=== PATIENT | female | born 1985 | race Caucasian/White ===

== ENCOUNTER 2018-04-19 18:23 | Emergency (ER) | payer MEDICAID, SELFPAY ==
[2018-04-19 18:36] VITALS: BP 117/81; PULSE 98; RESP 13; TEMP 36.8; O2SAT 98
--- NOTE | 2018-04-19 19:24 | DI.RPTCT_ITS ---
SYMPTOM/DIAGNOSIS: HEADACHES, CHANGE IN SPEECH PATTERN NONCONTRAST HEAD CT: No intracranial hemorrhage, mass or infarct is seen. There is no evidence of skull fracture. The visualized portions of the orbits and sinuses are unremarkable. IMPRESSION: Negative head CT
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
[2018-04-19] MEDS: Normal Saline 1,000 ML 1000 ML IV (19:43)
[2018-04-19] MEDS: Ondansetron O.D.T. 4 MG TABEF PO (19:43)
[2018-04-19 19:47] LABS: Abs Immature Grans 0.02 k/cumm (0.0-0.09); Absolute Basophil Count 0.02 k/cumm (0.0-0.2); Absolute Eosinophil Count 0.11 k/cumm (0.0-0.7); Absolute Lymphocyte Count 4.01 k/cumm (1.2-3.4); Absolute Monocyte Count 0.68 k/cumm (0.11-0.7); Absolute Neutrophil Count 5.52 k/cumm (1.2-6.7); Basophils % 0.2; Eosinophils % 1.1; HCT 38.5 % (36.0-46.0); HGB 13.2 g/dL (12.0-15.5); Immature Grans % 0.2; Lymphocytes % 38.7; Mean Corp. HGB Concentration 34.3 g/dL (32.0-36.0); Mean Corpuscular Volume 90.4 fL (80-95); Mean Platelet Volume 9.4 fL (8.0-11.0); Monocytes % 6.6; Neutrophils % 53.2; Platelet Count 294 x1000/uL (130-400); RBC 4.26 m/cumm (4.00-5.20); RBC Distribution Width 12.2 % (11.7-14.6); White Blood Cell Count 10.36 k/cumm (4.4-10.8)
[2018-04-19 19:53] LABS: Bilirubin Negative (Negative); Blood Negative (Negative); Clarity Sl Cloudy; Glucose Negative (Negative); Ketones Negative (Negative); Leukocyte Esterase Negative (Negative); Nitrite Negative (Negative); Specific Gravity 1.015 (1.005-1.025); Urobilinogen 0.2 EU/dL (Up TO 0.2)
[2018-04-19 19:58] LABS: ALT 25 U/L (12-78); AST 19 U/L (15-37); Albumin 3.9 g/dL (3.4-5.0); Alkaline Phosphatase 62 U/L (46-116); Anion Gap 6.2 mmol/L (3-11); BUN 10 mg/dL (7-18); Bilirubin, Total 0.2 mg/dL (0.2-1.0); CO2 28.8 mmol/L (21.0-32.0); CREATININE 0.72 mg/dL (0.55-1.02); Calcium 8.9 mg/dL (8.5-10.1); Chloride 102 mmol/L (98-107); Glucose 91 mg/dL (70-100); Potassium 3.5 mmol/L (3.5-5.1); Sodium 137 mmol/L (136-145); Total Protein 7.9 g/dL (6.4-8.2)
[2018-04-19 20:05] LABS: TSH (W/Ref FT4) 2.96 uIU/mL (0.358-3.74)
--- NOTE | 2018-04-19 20:10 | DI.VRAD_ITS ---
EXAM: CT Head Without Intravenous Contrast CLINICAL HISTORY: 32 years old, female; Pain and signs and symptoms; Speech disturbance; Unspecified; Headache; Headache not specified; Patient HX: Headaches, change in speech patterns TECHNIQUE: Axial computed tomography images of the head/brain without intravenous contrast. Coronal and sagittal reformatted images were created and reviewed. COMPARISON: No relevant prior studies available. FINDINGS: Brain: No evidence of acute intracranial bleed. No mass lesion or mass effect. Ortega/white matter differentiation is unremarkable. Cerebellum is unremarkable. Cisterns are unremarkable. Brainstem is unremarkable. No suprasellar mass. Ventricles: Unremarkable. No ventriculomegaly. Bones/joints: Unremarkable. No acute fracture. Soft tissues: Unremarkable. Sinuses: Unremarkable as visualized. No acute sinusitis. Mastoid air cells: Unremarkable as visualized. No mastoid effusion. IMPRESSION: No evidence of pathology. Dictated and Authenticated by: Oleg Ray MD. Ordering:EDWIGE KING MD
[2018-04-19 20:25] VITALS: BP 117/74; BP 120/77; BP 133/77; PULSE 77; PULSE 83; PULSE 85
[2018-04-19 20:25] LABS: Lipase 173 U/L (73-393)
[2018-04-19] MEDS: Promethazine 25 MG TAB 75 MG PO (20:49)
[2018-04-19 20:52] VITALS: TEMP 37.1
== END 2018-04-19 20:58 | disposition home or self-care (01) ==
PROVIDERS: Physician Assistant; Emergency Provider Emergency Medicine; PCP Family Medicine
DX: K64.9 Unspecified hemorrhoids (principal); R76.0 Raised antibody titer; R11.0 Nausea; R10.13 Epigastric pain; R51 Headache; R40.2412 Glasgow coma scale score 13-15, at arrival to emergency department
CPT/HCPCS: 36415; 80053; 81025; 83690; 96360; 99284; 70450; 81003; 84443; 85025

== ENCOUNTER 2018-04-27 08:30 | Outpatient (RCR) | payer MEDICAID, SELFPAY ==
--- NOTE | 2018-04-09 09:30 | PTTR_ITS ---
DATE: 04/09/18 SUBJECTIVE: I am pretty much doing the same in terms of the back. The knee is a little better today. OBJECTIVE: Manual therapy: ([id number]): Patient was briefly stretch through the hip flexor both 1 and 2 joint from the prone position and light PA glides through the thoracic and upper lumbar spine performed as well. Therapeutic procedures ([id number]). * X HEP review: Technique review and corrective modification where appropriate. * X See flow sheet: Patient tolerated her strengthening program well. * X Provided skilled instruction in proper exercise performance: [] * X Provided skilled manual cues to facilitate proper muscle recruitment and/ or movement pattern: [] * X Other: Patient continuing with her intrinsic core stabilization program with progressions in movement pattern as tolerable. Direct treatment time: 30 minutes of direct patient care.
--- NOTE | 2018-04-13 10:13 | NT_ITS ---
NON TREATMENT NOTE; 04/13/18 Patient called in to cancel today's appointment
--- NOTE | 2018-04-16 11:28 | PTTR_ITS ---
DATE: 04/16/18 SUBJECTIVE: I am doing okay for the most part, but I am hoping I get some answers soon. OBJECTIVE: Manual therapy: ([id number]): Patient was placed in supine and mobilized with long axis traction through the bilateral lower extremities for decompression. She was then guided through light hamstrings and piriformis stretching via active isolated stretching technique. Patient was mobilized through the hip with light traction and guided through deep hip flexion, internal and external rotation. She was placed in prone and mobilized with PA glides through the thoracic and lumbar spine with grade III strength for actual vertebral motion. She was guided through hip flexor stretching with hip extension coordinated with knee flexion. Patient then taped with McConnel taping technique for medial glide over the patella bilaterally. Direct treatment time: 30 minutes of direct patient care.
--- NOTE | 2018-04-23 08:40 | NT_ITS ---
NON TREATMENT NOTE: 04/23/18 Patient called in to cancel today's appointment because of something wrong with her tooth
--- NOTE | 2018-04-27 11:52 | PTTR_ITS ---
DATE: 04/27/18 SUBJECTIVE: Pt states that she is doing terrible today. 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 OBJECTIVE: Manual therapy: ([id number]). Pt placed in the supine position receiving gentle traction to the (B) LE and she is then mobilized with gentle hamstring stretching with active isolated stretching technique. Gently mobilized through the hips, stretched to the piriformis as well with light traction technique to facilitate end range motion. She is then placed in prone receiving gentle stretch to the rectus femoris via hip extension coordinated with knee flexion, light PA glides established through the mid to lower thoracic and lumbar spine with a grade 2 distribution of strength with mechanoreceptor stimulation. Pt then taped through the knees with McConnel taping to support medial glide of the patella. Direct treatment time: 30 minutes Total treatment time: 30 minutes
== END 2018-04-30 23:59 | disposition home or self-care (01) ==
LOC: PT 08:30
PROVIDERS: PCP Family Medicine; Referring Provider Family Medicine; Visit Provider Family Medicine
DX: M54.5 Low back pain (principal); M62.81 Muscle weakness (generalized)
CPT/HCPCS: 97110; 97140

== ENCOUNTER 2018-06-06 13:37 | Emergency (ER) | payer MEDICAID, SELFPAY ==
[2018-06-06 13:40] VITALS: BP 123/65; PULSE 105; RESP 24; TEMP 36.3; O2SAT 98
--- NOTE | 2018-06-06 13:49 | W.ED.GENAD ---
Discharge Plan Disposition Patient Disposition: HOME Condition: Fair Discharge Details Chief Complaint: Urinary Clinical Impression: Pyelonephritis Primary Care Provider: Norma Lowe ED Provider: Karine Peña Home Meds and New Rx's Prescriptions: New cephalexin [Keflex] 500 mg capsule 500 mg PO QID Qty: 40 RF: 0 No Action epinephrine 0.3 MG/0.3 ML auto-injector 0.3 mg IM PRN PRN (Reason: Anaphylaxis) RF: 0 levonorgestrel [Mirena] 1 EACH intrauterine device 1 ea Intrauterine ONCE Qty: 1 RF: 0 Lactobacillus acidophilus [Probiotic] 1 EACH capsule 3 cap PO DAILY RF: 0 Ibuprofen [Ibuprofen Ib] 200 MG Tablet 600 mg PO PRNRF: 0 promethazine 25 MG tablet 25 mg PO Q6H PRN (Reason: Nausea) Qty: 12 RF: 0 Discharge Instructions Instructions: Urinary Tract Infection in Women (ED) Additional Instructions: Encourage hydration. Take antibiotics as prescribed, even if symptoms improve please take the entire course. Please follow up with primary care this week for reevaluation. If you develop fevers/chills, change in urination, vomiting or other new/worsening symptoms please seek care urgently. Referrals: Norma Lowe [Primary Care Provider] - Discharge Data Discharge Date/Time-TO BE ENTERED AT DEPARTURE: 06/06/18 15:54 Medical Decision Making Patient presents today with chief complaint of urinary tract infection. Patient reports that she had multiple urinary tract infections in the past. Is been several months since her last. No recent antibiotic treatment. States for the past 3 days she is noted dysuria, increased frequency and urgency. States that when she is going she is going very small amounts. States she has been having some low central discomfort over the area of the bladder particularly around the times of urination. Has not noted any fevers or chills. On exam, no abdominal tenderness is elicited. She does have right-sided CVA tenderness which she states began over the past 24 hours. States that she has been afebrile at home, is currently afebrile. She is noted to be tachycardic at 105. Patient does appear slightly dry on exam. Patient will receive IV hydration, will obtain urinalysis as well as laboratory evaluation. Patient was also endorsing some right leg weakness. Unable to appreciate this weakness on exam. Strength seems equal bilaterally. She is ambulating well with no signs of antalgic gait, foot drop or weakness. Reflexes are equal bilaterally as is sensation. She does not endorse any midline back tenderness. States that this has not been more of a chronic issue and that she believes is associated with her rheumatologic issues she is currently being worked up for. I am unclear at this point where to go with this information as her exam is so reassuring. She does have upcoming appointments for further evaluation of her current rheumatologic complaints. Advised to discuss this further at that time. However, we did discuss new and worsening symptoms and when to seek care urgently for this lower extremity change insensation complaint. Labs significant for leukocytosis with WBC of 12.5. Potassium was minimally low at 3.3. Urinalysis is poor specimen as there is a color interference. Patient has a positive WBC count of 20-50 per high-power field. Many bacteria as well as many epithelial cells. Labs otherwise unremarkable. Discussed these findings with the patient. Based on her history, physical exam and an elevated WBC, and concern for possible pyelonephritis. Patient will be treated with antibiotics. Encourage hydration. I have asked the patient to give another urine specimen in hopes that this is better for culture. Patient received hydration here. Is tolerating p.o. Will begin on antibiotics. I did discuss the antibiotic options with the patient. She does have an allergy to sulfa and will be placed on Keflex. Advised close follow-up with primary care. She was given strict return precautions. All of her questions and concerns were addressed and she is in agreement with this plan HPI General Mode of arrival: ambulatory. Date/Time Provider Initiated Documentation: 06/06/18 13:46. Limitations to Documentation: no limitations. Information obtained by: patient. History of Present Illness 33 year old F presents to the emergency department with the chief complaint of UTI, described as moderate, with intensity rated at 7. Quality is described as burning (with urination), Patient flank (endorsing right flank pain). Patient started experiencing this hour(s) (3) and it has been constant. No relieving factors improve symptom(s), No exacerbating factors reported . Patient notes no other symptoms.; denies cough, fever/chills, headaches, loss of appetite, malaise, nausea/vomiting and rash. Patient did receive the following treatments prior to arrival, other (Pyridium) Related Data Home Medications Medication Instructions Recorded Confirmed epinephrine 0.3 mg IM PRN PRN 04/29/13 04/19/18 levonorgestrel [Mirena] 1 ea INTRAUTERINE ONCE #1 implant 09/20/15 04/19/18 Lactobacillus acidophilus 3 cap PO DAILY 09/27/16 04/19/18 [Probiotic] Ibuprofen [Ibuprofen Ib] 600 mg PO PRN 04/19/18 promethazine 25 mg PO Q6H PRN #12 tab 04/19/18 cephalexin [Keflex] 500 mg PO QID #40 cap 06/06/18 Previous Rx's Medication Instructions Recorded promethazine 25 mg PO Q6H PRN #12 tab 04/19/18 cephalexin [Keflex] 500 mg PO QID #40 cap 06/06/18 Allergies Allergy/AdvReac Type Severity Reaction Status Date / Time Sulfa (Sulfonamide Allergy Mild Unverified 06/06/18 13:47 Antibiotics) acetaminophen [From Vicodin] AdvReac Unverified 06/06/18 13:47 hydrocodone [From Vicodin] AdvReac Unverified 06/06/18 13:47 tramadol AdvReac Unverified 06/06/18 13:47 apples/plums/pears/peaches/pena/raw Allergy Severe swelling/trouble Uncoded 06/06/18 13:47 potatoes/walnuts/almonds/ breathing sugarsnap Allergy Severe swelling Uncoded 06/06/18 13:47 peas/tomatoes/green peppers trouble breathing environmental Allergy Uncoded 06/06/18 13:47 General Stated Complaint: Urinary LIEN: 3 Review of Systems Constitutional Reports as per HPI, Denies chills, Reports fatigue, Denies fever(s), Denies frequent falls, Denies headache(s), Denies poor appetite and Reports weakness ENT Denies dizziness and Denies headache(s) Cardiovascular Denies chest pain Respiratory Denies chest congestion and Denies cough Gastrointestinal Reports abdominal pain (Patient is endorsing low central abdominal pain, reports that over her bladder and consistent with pain she is experienced with urinary tract infections historically), Denies change in bowel habits, Denies diarrhea, Denies nausea and Denies vomiting Genitourinary Reports as per HPI, Denies dyspareunia, Reports dysuria, Reports flank pain, Denies urinary incontinence, Reports urinary urgency, Denies vaginal discharge and Denies vaginal odor Musculoskeletal Reports radiating pain into limb and Denies tingling Integumentary/Breasts Denies rash Neurologic Denies dizziness, Denies frequent falls, Denies headache(s), Denies sensory deficit, Denies tingling, Denies paresthesias and Reports weakness Endocrine Reports fatigue [facility] Social History Smoking/Tobacco Use Status: Current every day Surgical History Appendectomy section Diagnostic Laproscopy Exam Const General: cooperative, healthy appearing, comfortable, no acute distress, well developed and well groomed Nutritional Appearance: average body habitus and well nourished Orientation: alert and awake Eyes General: appearance normal, both eyes and all related structures Resp Effort & Inspection: normal respiratory effort, able to speak in complete sentences and no respiratory distress Auscultation: clear to auscultation bilaterally Cardio Rate: tachycardic Rhythm: regular rhythm Heart Sounds: S1 normal and S2 normal GI Inspection: normal to inspection and non-distended Palpation: soft, no hepatosplenomegaly, not firm, no guarding, not rigid and nontender Auscultation: normal bowel sounds Back/Spine/Pelvis Back: CVA tenderness (Patient is right-sided CVA tenderness), No erythema and No warmth Cervical Spine: normal cervical lordosis and cervical ROM normal Thoracic/Lumbar Spine: thoracic and lumbar spine normal to inspection, thoraco-lumbar ROM normal, No paraspinal tenderness, No thoracic spinal tenderness and No lumbar spinal tenderness Skin General skin exam: no rashes or lesions noted Lesions: no lesions Rashes: no rashes Trauma: no lacerations or abrasions Neuro General: alert, awake and oriented x3 Cognition: normal cognition Speech: speech normal Gait: normal gait Motor: muscle tone normal throughout and strength 5/5 throughout Sensory Exam: no sensory deficits noted DTR's: Rt Patellar: 2+, Lt Patellar: 2+, Rt Ankle: 2+ and Lt Ankle: 2+ Plantar Reflexes: Downgoing: bilateral Coordination: [id number] test normal Extrem General: normal to inspection, full ROM, normal capillary refill, no pedal edema, no calf tenderness and normal gait Right lower extremity: normal to inspection, full ROM and normal capillary refill Left lower extremity: normal to inspection, full ROM and normal capillary refill Psych Appearance: grossly normal and well kempt Mental Status: mental status grossly normal Speech and Movement: speech and movement normal Course Vital Signs Temperature 36.3 C L 06/06/18 13:40 Pulse 105 H 06/06/18 13:40 Respiratory Rate 24 06/06/18 13:40 Blood Pressure 123/65 06/06/18 13:40 Pulse Oximetry 98 06/06/18 13:40 Temperature 36.3 C L 06/06/18 13:40 Temperature Source Temporal Artery Scan 06/06/18 13:40 Pulse 105 H 06/06/18 13:40 Respiratory Rate 24 06/06/18 13:40 Respiratory Effort 06/06/18 13:44 Blood Pressure 123/65 06/06/18 13:40 Blood Pressure Position Sitting 06/06/18 13:40 Pulse Oximetry 98 06/06/18 13:40 Oxygen Delivery Method Room Air 06/06/18 13:40 Oxygen Flow Rate 0 06/06/18 13:40 Pain Level 10 06/06/18 13:44
[2018-06-06 14:01] LABS: Bilirubin Color Interference (Negative); Blood Color Interference (Negative); Clarity Sl Cloudy; Glucose Color Interference mg/dL (Negative); Ketones Color Interference mg/dL (Negative); Leukocyte Esterase Color Interference (Negative); Nitrite Color Interference (Negative); Specific Gravity 1.025 (1.005-1.025); Urobilinogen Color Interference EU/dL (Up TO 0.2)
[2018-06-06 14:11] LABS: Bacteria Moderate HPF (Negative); C & S Indicated? No/Sq. Contamination; Casts Negative LPF (Negative); Crystals Negative HPF (Negative); Epithelial Cells Many HPF (Negative); Mucus Moderate (Negative); Other Cells Few Yeast (Negative); RBC 0-2 (0-2); WBC 20-50 HPF (0-5)
[2018-06-06] MEDS: Normal Saline 1,000 ML 1000 ML IV (14:27)
[2018-06-06 14:31] LABS: Abs Immature Grans 0.03 k/cumm (0.0-0.09); Absolute Eosinophil Count 0.08 k/cumm (0.0-0.7); Absolute Lymphocyte Count 3.28 k/cumm (1.2-3.4); Absolute Monocyte Count 0.54 k/cumm (0.11-0.7); Basophils % 0.2; Eosinophils % 0.6; HGB 13.2 g/dL (12.0-15.5); Immature Grans % 0.2; Lymphocytes % 26.2; Mean Corp. HGB Concentration 33.8 g/dL (32.0-36.0); Mean Corpuscular Hemoglobin 30.5 pg (27.0-33.0); Mean Corpuscular Volume 90.1 fL (80-95); Mean Platelet Volume 9.6 fL (8.0-11.0); Monocytes % 4.3; Neutrophils % 68.5; Platelet Count 331 x1000/uL (130-400); RBC 4.33 m/cumm (4.00-5.20); RBC Distribution Width 12.2 % (11.7-14.6); White Blood Cell Count 12.51 k/cumm (4.4-10.8)
[2018-06-06 14:34] LABS: Absolute Basophil Count 0.03 k/cumm (0.0-0.2); Absolute Neutrophil Count 8.57 k/cumm (1.2-6.7)
[2018-06-06 15:18] LABS: ALT 22 U/L (12-78); AST 14 U/L (15-37); Albumin 3.5 g/dL (3.4-5.0); Alkaline Phosphatase 64 U/L (46-116); Anion Gap 8.1 mmol/L (3-11); BUN 7 mg/dL (7-18); Bilirubin, Total 0.4 mg/dL (0.2-1.0); CO2 26.9 mmol/L (21.0-32.0); CREATININE 0.59 mg/dL (0.55-1.02); Calcium 8.4 mg/dL (8.5-10.1); Chloride 104 mmol/L (98-107); Glucose 118 mg/dL (70-100); Potassium 3.3 mmol/L (3.5-5.1); Sodium 139 mmol/L (136-145); Total Protein 7.1 g/dL (6.4-8.2)
--- NOTE | 2018-06-06 15:48 | ED.GENADUL_ITS ---
Discharge Plan Disposition Patient Disposition: HOME Condition: Fair Discharge Details Chief Complaint: Urinary Clinical Impression: Pyelonephritis Primary Care Provider: Norma Lowe ED Provider: Karine Peña Home Meds and New Rx's Prescriptions: New cephalexin [Keflex] 500 mg capsule 500 mg PO QID Qty: 40 RF: 0 No Action epinephrine 0.3 MG/0.3 ML auto-injector 0.3 mg IM PRN PRN (Reason: Anaphylaxis) RF: 0 levonorgestrel [Mirena] 1 EACH intrauterine device 1 ea Intrauterine ONCE Qty: 1 RF: 0 Lactobacillus acidophilus [Probiotic] 1 EACH capsule 3 cap PO DAILY RF: 0 Ibuprofen [Ibuprofen Ib] 200 MG Tablet 600 mg PO PRNRF: 0 promethazine 25 MG tablet 25 mg PO Q6H PRN (Reason: Nausea) Qty: 12 RF: 0 Discharge Instructions Instructions: Urinary Tract Infection in Women (ED) Additional Instructions: Encourage hydration. Take antibiotics as prescribed, even if symptoms improve please take the entire course. Please follow up with primary care this week for reevaluation. If you develop fevers/chills, change in urination, vomiting or other new/worsening symptoms please seek care urgently. Referrals: Norma Lowe [Primary Care Provider] - Discharge Data Discharge Date/Time-TO BE ENTERED AT DEPARTURE: 06/06/18 15:54 Medical Decision Making Patient presents today with chief complaint of urinary tract infection. Patient reports that she had multiple urinary tract infections in the past. Is been several months since her last. No recent antibiotic treatment. States for the past 3 days she is noted dysuria, increased frequency and urgency. States that when she is going she is going very small amounts. States she has been having some low central discomfort over the area of the bladder particularly around the times of urination. Has not noted any fevers or chills. On exam, no abdominal tenderness is elicited. She does have right- sided CVA tenderness which she states began over the past 24 hours. States that she has been afebrile at home, is currently afebrile. She is noted to be tachycardic at 105. Patient does appear slightly dry on exam. Patient will receive IV hydration, will obtain urinalysis as well as laboratory evaluation. Patient was also endorsing some right leg weakness. Unable to appreciate this weakness on exam. Strength seems equal bilaterally. She is ambulating well with no signs of antalgic gait, foot drop or weakness. Reflexes are equal bilaterally as is sensation. She does not endorse any midline back tenderness. States that this has not been more of a chronic issue and that she believes is associated with her rheumatologic issues she is currently being worked up for. I am unclear at this point where to go with this information as her exam is so reassuring. She does have upcoming appointments for further evaluation of her current rheumatologic complaints. Advised to discuss this further at that time. However, we did discuss new and worsening symptoms and when to seek care urgently for this lower extremity change insensation complaint. Labs significant for leukocytosis with WBC of 12.5. Potassium was minimally low at 3.3. Urinalysis is poor specimen as there is a color interference. Patient has a positive WBC count of 20-50 per high-power field. Many bacteria as well as many epithelial cells. Labs otherwise unremarkable. Discussed these findings with the patient. Based on her history, physical exam and an elevated WBC, and concern for possible pyelonephritis. Patient will be treated with antibiotics. Encourage hydration. I have asked the patient to give another urine specimen in hopes that this is better for culture. Patient received hydration here. Is tolerating p.o. Will begin on antibiotics. I did discuss the antibiotic options with the patient. She does have an allergy to sulfa and will be placed on Keflex. Advised close follow-up with primary care. She was given strict return precautions. All of her questions and concerns were addressed and she is in agreement with this plan HPI General Mode of arrival: ambulatory . Date/Time Provider Initiated Documentation: 06/06/18 13:46 . Limitations to Documentation: no limitations . Information obtained by: patient . History of Present Illness 33 year old F presents to the emergency department with the chief complaint of UTI, described as moderate, with intensity rated at 7. Quality is described as burning (with urination), Patient flank (endorsing right flank pain). Patient started experiencing this hour(s) (3) and it has been constant. No relieving factors improve symptom(s), No exacerbating factors reported . Patient notes no other symptoms.; denies cough, fever/chills, headaches, loss of appetite, malaise, nausea/vomiting and rash. Patient did receive the following treatments prior to arrival, other (Pyridium) Related Data Home Medications Medication Instructions Recorded Confirmed epinephrine 0.3 mg IM PRN PRN 04/29/13 04/19/18 levonorgestrel [Mirena] 1 ea INTRAUTERINE ONCE #1 implant 09/20/15 04/19/18 Lactobacillus acidophilus 3 cap PO DAILY 09/27/16 04/19/18 [Probiotic] Ibuprofen [Ibuprofen Ib] 600 mg PO PRN 04/19/18 promethazine 25 mg PO Q6H PRN #12 tab 04/19/18 cephalexin [Keflex] 500 mg PO QID #40 cap 06/06/18 Previous Rx's Medication Instructions Recorded promethazine 25 mg PO Q6H PRN #12 tab 04/19/18 cephalexin [Keflex] 500 mg PO QID #40 cap 06/06/18 Allergies Allergy/AdvReac Type Severity Reaction Status Date / Time Sulfa (Sulfonamide Allergy Mild Unverified 06/06/18 13:47 Antibiotics) acetaminophen [From Vicodin] AdvReac Unverified 06/06/18 13:47 hydrocodone [From Vicodin] AdvReac Unverified 06/06/18 13:47 tramadol AdvReac Unverified 06/06/18 13:47 apples/plums/pears/peaches/pena/raw Allergy Severe swelling/trouble Uncoded 13:47 potatoes/walnuts/almonds/ breathing sugarsnap Allergy Severe swelling Uncoded 06/06/18 13:47 peas/tomatoes/green peppers trouble breathing environmental Allergy Uncoded 06/06/18 13:47 General Stated Complaint: Urinary LIEN: 3 Review of Systems Constitutional Reports as per HPI, Denies chills, Reports fatigue, Denies fever(s), Denies frequent falls, Denies headache(s), Denies poor appetite and Reports weakness ENT Denies dizziness and Denies headache(s) Cardiovascular Denies chest pain Respiratory Denies chest congestion and Denies cough Gastrointestinal Reports abdominal pain (Patient is endorsing low central abdominal pain, reports that over her bladder and consistent with pain she is experienced with urinary tract infections historically), Denies change in bowel habits, Denies diarrhea, Denies nausea and Denies vomiting Genitourinary Reports as per HPI, Denies dyspareunia, Reports dysuria, Reports flank pain, Denies urinary incontinence, Reports urinary urgency, Denies vaginal discharge and Denies vaginal odor Musculoskeletal Reports radiating pain into limb and Denies tingling Integumentary/Breasts Denies rash Neurologic Denies dizziness, Denies frequent falls, Denies headache(s), Denies sensory deficit, Denies tingling, Denies paresthesias and Reports weakness Endocrine Reports fatigue [facility] Social History Smoking/Tobacco Use Status: Current every day Surgical History Appendectomy section Diagnostic Laproscopy Exam Const General: cooperative, healthy appearing, comfortable, no acute distress, well developed and well groomed Nutritional Appearance: average body habitus and well nourished Orientation: alert and awake Eyes General: appearance normal, both eyes and all related structures Resp Effort & Inspection: normal respiratory effort, able to speak in complete sentences and no respiratory distress Auscultation: clear to auscultation bilaterally Cardio Rate: tachycardic Rhythm: regular rhythm Heart Sounds: S1 normal and S2 normal GI Inspection: normal to inspection and non-distended Palpation: soft, no hepatosplenomegaly, not firm, no guarding, not rigid and nontender Auscultation: normal bowel sounds Back/Spine/Pelvis Back: CVA tenderness (Patient is right-sided CVA tenderness), No erythema and No warmth Cervical Spine: normal cervical lordosis and cervical ROM normal Thoracic/Lumbar Spine: thoracic and lumbar spine normal to inspection, thoraco- lumbar ROM normal, No paraspinal tenderness, No thoracic spinal tenderness and No lumbar spinal tenderness Skin General skin exam: no rashes or lesions noted Lesions: no lesions Rashes: no rashes Trauma: no lacerations or abrasions Neuro General: alert, awake and oriented x3 Cognition: normal cognition Speech: speech normal Gait: normal gait Motor: muscle tone normal throughout and strength 5/5 throughout Sensory Exam: no sensory deficits noted DTR's: Rt Patellar: 2+, Lt Patellar: 2+, Rt Ankle: 2+ and Lt Ankle: 2+ Plantar Reflexes: Downgoing: bilateral Coordination: [id number] test normal Extrem General: normal to inspection, full ROM, normal capillary refill, no pedal edema , no calf tenderness and normal gait Right lower extremity: normal to inspection, full ROM and normal capillary refill Left lower extremity: normal to inspection, full ROM and normal capillary refill Psych Appearance: grossly normal and well kempt Mental Status: mental status grossly normal Speech and Movement: speech and movement normal Course Vital Signs Temperature 36.3 C L 06/06/18 13:40 Pulse 105 H 06/06/18 13:40 Respiratory Rate 24 06/06/18 13:40 Blood Pressure 123/65 06/06/18 13:40 Pulse Oximetry 98 06/06/18 13:40 Temperature 36.3 C L 06/06/18 13:40 Temperature Source Temporal Artery Scan 06/06/18 13:40 Pulse 105 H 06/06/18 13:40 Respiratory Rate 24 06/06/18 13:40 Respiratory Effort 06/06/18 13:44 Blood Pressure 123/65 06/06/18 13:40 Blood Pressure Position Sitting 06/06/18 13:40 Pulse Oximetry 98 06/06/18 13:40 Oxygen Delivery Method Room Air 06/06/18 13:40 Oxygen Flow Rate 0 06/06/18 13:40 Pain Level 10 06/06/18 13:44
[2018-06-06 15:55] VITALS: BP 123/65; PULSE 105; RESP 24; TEMP 36.3; O2SAT 98
== END 2018-06-06 15:54 | disposition home or self-care (01) ==
PROVIDERS: Emergency Provider Physician Assistant; PCP Family Medicine
DX: N10 Acute pyelonephritis (principal)
CPT/HCPCS: 36415; 80053; 99283; 81003; 81015; 85025; 87086

== ENCOUNTER 2018-06-07 11:00 | Emergency (ER) | payer MEDICAID, SELFPAY ==
[2018-06-07 11:05] VITALS: BP 133/83; PULSE 95; RESP 16; TEMP 36.8; O2SAT 99
--- NOTE | 2018-06-07 11:29 | DI.US_ITS ---
SYMPTOM/DIAGNOSIS: RT SIDED FLANK PAIN RENAL ULTRASOUND: Routine examination was performed. The right kidney measures 12.2 cm. long. The left kidney measures 12.5 cm. long. There do appear to be a few echogenic foci within the kidneys bilaterally. These may represent small stones or vascular calcifications. No hydronephrosis is seen. There is no evidence of a solid mass. There is normal and symmetric blood flow to the kidneys. The prevoid urinary bladder volume is 280 cc's. The bladder wall appeared smooth. Both ureteral jets were present. No intraluminal masses are seen. Postvoid urinary bladder volume is 4 cc's. IMPRESSION: Question of tiny non obstructing renal stones versus vascular calcifications. No evidence of obstructive uropathy.
--- NOTE | 2018-06-07 11:30 | W.ED.GENAD ---
Discharge Plan Disposition Patient Disposition: HOME Condition: Fair Discharge Details Chief Complaint: FlankPain Clinical Impression: Pyelonephritis Primary Care Provider: Norma Lowe ED Provider: Karine Peña Home Meds and New Rx's Prescriptions: New ciprofloxacin HCl 500 mg tablet 500 mg PO BID Qty: 14 RF: 0 Continue epinephrine 0.3 MG/0.3 ML auto-injector 0.3 mg IM PRN PRN (Reason: Anaphylaxis) RF: 0 levonorgestrel [Mirena] 1 EACH intrauterine device 1 ea Intrauterine ONCE Qty: 1 RF: 0 Lactobacillus acidophilus [Probiotic] 1 EACH capsule 3 cap PO DAILY RF: 0 Discontinued cephalexin [Keflex] 500 mg capsule 500 mg PO QID Qty: 40 RF: 0 Discharge Instructions Instructions: Urinary Tract Infection in Women (ED) Additional Instructions: Continue to encourage hydration. Tylenol and/or ibuprofen as needed for discomfort. Please stop the Keflex and begin the ciprofloxacin as prescribed. Remember the possible adverse reactions we discussed. Please seek care urgently once again if you develop increased pain, fever/chills, inability to stay hydrated other new/worsening symptoms. Please follow-up with primary care in 1 week for reevaluation. Referrals: Norma Lowe [Primary Care Provider] - Discharge Data Discharge Date/Time-TO BE ENTERED AT DEPARTURE: 06/07/18 15:18 Medical Decision Making Patient is a 33-year-old female presenting today with chief complaint of right flank pain. Patient was seen by myself yesterday and diagnosed with possible pyelonephritis. Urinary culture is still pending. Patient presented yesterday to the emergency department with concerns for urinary tract infection was having some mild right-sided flank pain. She has right CVA tenderness. Urinalysis was difficult to interpret secondary to the patient taking Pyridium and having color interference. However, she did have a large amount of WBCs and history concerning for UTI. Patient was found to have elevated white count and was treated for presumed pyelonephritis. She reports that she took the Keflex yesterday but is concerned that she may have had a reaction as medication as she awoke having diarrhea and my heart is beating out of my chest. She denies any chest pain. States that with deep inspiration her right-sided flank pain worsens. States that overall her urinary tract infection symptoms have improved, she is no longer endorsing dysuria. However, she reports that the right-sided flank pain has increased. Contact her primary care discussed the concern for possible reaction to her antibiotic who advised reevaluation in the emergency department. Patient does appear more uncomfortable on exam. Continues to have right-sided CVA tenderness. No abdominal pain. Will obtain repeat laboratory evaluation, EKG, renal ultrasound. Patient was feeling that she continue to have some palpitations that her heart was beating faster than typical. However, on exam patient is in normal sinus rhythm. Heart rate of 95. There is nontoxic and is afebrile. Denies any fevers at home overnight EKG reviewed by ED physician, no acute ischemic changes or other acute abnormality noted. Patient in NSR with rate of 72. Laboratory evaluation is fairly unchanged from yesterday. Leukocytosis remains elevated, down slightly from 12.51 to 12.06. Urine is heavily contaminated, have not sent this to culture as one is already pending from before patient began abx. Ultrasound reviewed by radiologist. They advised that they question nonobstructing renal stones versus renal calcification in the bilateral kidneys. Patient reports that she has known very small stones on the left kidney. Reports that this is been verified with CT previously. Patient I discussed the findings. Given her increased pain, and concern for possible infected stone although does not seem to be went obstructing on ultrasound. If the stone was visualized as above are unchanged, these are very unlikely to cause her discomfort, particularly she has had them for quite some time. Plan to obtain CT to evaluate for any possible other abnormality that may be contributing to her symptoms. CT reviewed by radiologist. They contact the department advised that there are 2 nonobstructing stones noted in the kidney. No nephrolithiasis noted on the right side. No hydronephrosis or ureteral enlargement. Discussed these findings with the patient. As patient sounds to have had an adverse reaction to the Keflex was not feeling well after taking this, will change the patient to ciprofloxacin. We did discuss the possible side effects associated with this medication. I encouraged hydration. Encourage close follow-up with primary care for reevaluation. She is given strict return precautions. All her questions and concerns were addressed and she is in agreement with this plan. HPI General Mode of arrival: ambulatory. Date/Time Provider Initiated Documentation: 06/07/18 11:15. Limitations to Documentation: no limitations. Information obtained by: patient. History of Present Illness 33 year old F presents to the emergency department with the chief complaint of Right-sided flank pain, described as moderate, Quality is described as aching, and is localized to the back and right. Patient reports no radiation. Patient started experiencing this day(s) and it has been constant. No relieving factors improve symptom(s), No exacerbating factors reported . Patient notes no other symptoms.; denies chest pain, cough, fever/chills, headaches, loss of appetite, rash and shortness of breath. Patient did receive the following treatments prior to arrival, other (has been taking Keflex as prescribed) Related Data Home Medications Medication Instructions Recorded Confirmed epinephrine 0.3 mg IM PRN PRN 04/29/13 06/07/18 levonorgestrel [Mirena] 1 ea INTRAUTERINE ONCE #1 implant 09/20/15 06/07/18 Lactobacillus acidophilus 3 cap PO DAILY 09/27/16 06/07/18 [Probiotic] ciprofloxacin HCl 500 mg PO BID #14 tab 06/07/18 Previous Rx's Medication Instructions Recorded ciprofloxacin HCl 500 mg PO BID #14 tab 06/07/18 Allergies Allergy/AdvReac Type Severity Reaction Status Date / Time Sulfa (Sulfonamide Allergy Mild Unverified 06/06/18 13:47 Antibiotics) acetaminophen [From Vicodin] AdvReac Unverified 06/06/18 13:47 hydrocodone [From Vicodin] AdvReac Unverified 06/06/18 13:47 tramadol AdvReac Unverified 06/06/18 13:47 apples/plums/pears/peaches/pena/raw Allergy Severe swelling/trouble Uncoded 06/06/18 13:47 potatoes/walnuts/almonds/ breathing sugarsnap Allergy Severe swelling Uncoded 06/06/18 13:47 peas/tomatoes/green peppers trouble breathing environmental Allergy Uncoded 06/06/18 13:47 General Stated Complaint: FlankPain LIEN: 3 Review of Systems Constitutional Reports as per HPI and Denies headache(s) ENT Denies headache(s) Cardiovascular Reports as per HPI, Denies chest pain, Reports rapid heart rate, Denies edema, Denies lightheadedness and Denies radiating jaw, neck or arm pain Respiratory Reports as per HPI Gastrointestinal Reports as per HPI, Denies abdominal pain, Denies change in stool character, Denies nausea and Denies vomiting Genitourinary Reports as per HPI, Reports urinary frequency, Reports dysuria (states this has improved since ), Reports flank pain, Denies urinary incontinence, Reports urinary hesitancy, Reports urinary urgency, Denies vaginal discharge and Denies vaginal odor Musculoskeletal Reports as per HPI and Reports back pain Integumentary/Breasts Denies rash Neurologic Denies headache(s) [facility] Social History Smoking/Tobacco Use Status: Current every day Surgical History Appendectomy section Diagnostic Laproscopy Exam Const General: cooperative, healthy appearing, comfortable, no acute distress, well developed and well groomed Nutritional Appearance: average body habitus and well nourished Orientation: alert and awake Eyes General: appearance normal, both eyes and all related structures Resp Effort & Inspection: normal respiratory effort, able to speak in complete sentences and no respiratory distress Auscultation: clear to auscultation bilaterally, no rales, no rhonchi and no wheezes Cardio Rate: regular rate Rhythm: regular rhythm Heart Sounds: S1 normal and S2 normal GI Inspection: normal to inspection, no edema and non-distended Palpation: soft, no hepatosplenomegaly, not firm, no guarding, no hernias, no pulsatile masses, not rigid and nontender Auscultation: normal bowel sounds Back/Spine/Pelvis Back: CVA tenderness (right) Skin General skin exam: no rashes or lesions noted Lesions: no lesions Rashes: no rashes Neuro General: alert, awake and oriented x3 Cognition: normal cognition Speech: speech normal Gait: normal gait Extrem General: no pedal edema, no calf tenderness and normal gait Psych Appearance: grossly normal and well kempt Mental Status: mental status grossly normal Speech and Movement: speech and movement normal Mood: congruent mood Course Vital Signs Temperature 36.8 C 06/07/18 11:05 Pulse 95 H 06/07/18 11:05 Respiratory Rate 16 06/07/18 11:05 Blood Pressure 133/83 06/07/18 11:05 Pulse Oximetry 99 06/07/18 11:05 Temperature 36.8 C 06/07/18 11:05 Temperature Source Temporal Artery Scan 10/08/18 11:05 Pulse 95 H 06/07/18 11:05 Respiratory Rate 16 06/07/18 11:05 Respiratory Effort 06/07/18 11:09 Blood Pressure 133/83 06/07/18 11:05 Pulse Oximetry 99 06/07/18 11:05 Pain Level 10 06/07/18 11:05
--- NOTE | 2018-06-07 11:33 | ED.GENADUL_ITS ---
Discharge Plan Disposition Patient Disposition: HOME Condition: Fair Discharge Details Chief Complaint: FlankPain Clinical Impression: Pyelonephritis Primary Care Provider: Norma Lowe ED Provider: Karine Peña Home Meds and New Rx's Prescriptions: New ciprofloxacin HCl 500 mg tablet 500 mg PO BID Qty: 14 RF: 0 Continue epinephrine 0.3 MG/0.3 ML auto-injector 0.3 mg IM PRN PRN (Reason: Anaphylaxis) RF: 0 levonorgestrel [Mirena] 1 EACH intrauterine device 1 ea Intrauterine ONCE Qty: 1 RF: 0 Lactobacillus acidophilus [Probiotic] 1 EACH capsule 3 cap PO DAILY RF: 0 Discontinued cephalexin [Keflex] 500 mg capsule 500 mg PO QID Qty: 40 RF: 0 Discharge Instructions Instructions: Urinary Tract Infection in Women (ED) Additional Instructions: Continue to encourage hydration. Tylenol and/or ibuprofen as needed for discomfort. Please stop the Keflex and begin the ciprofloxacin as prescribed. Remember the possible adverse reactions we discussed. Please seek care urgently once again if you develop increased pain, fever/chills, inability to stay hydrated other new/worsening symptoms. Please follow-up with primary care in 1 week for reevaluation. Referrals: Norma Lowe [Primary Care Provider] - Discharge Data Discharge Date/Time-TO BE ENTERED AT DEPARTURE: 06/07/18 15:18 Medical Decision Making Patient is a 33-year-old female presenting today with chief complaint of right flank pain. Patient was seen by myself yesterday and diagnosed with possible pyelonephritis. Urinary culture is still pending. Patient presented yesterday to the emergency department with concerns for urinary tract infection was having some mild right-sided flank pain. She has right CVA tenderness. Urinalysis was difficult to interpret secondary to the patient taking Pyridium and having color interference. However, she did have a large amount of WBCs and history concerning for UTI. Patient was found to have elevated white count and was treated for presumed pyelonephritis. She reports that she took the Keflex yesterday but is concerned that she may have had a reaction as medication as she awoke having diarrhea and my heart is beating out of my chest . She denies any chest pain. States that with deep inspiration her right- sided flank pain worsens. States that overall her urinary tract infection symptoms have improved, she is no longer endorsing dysuria. However, she reports that the right-sided flank pain has increased. Contact her primary care discussed the concern for possible reaction to her antibiotic who advised reevaluation in the emergency department. Patient does appear more uncomfortable on exam. Continues to have right-sided CVA tenderness. No abdominal pain. Will obtain repeat laboratory evaluation, EKG, renal ultrasound. Patient was feeling that she continue to have some palpitations that her heart was beating faster than typical. However, on exam patient is in normal sinus rhythm. Heart rate of 95. There is nontoxic and is afebrile. Denies any fevers at home overnight EKG reviewed by ED physician, no acute ischemic changes or other acute abnormality noted. Patient in NSR with rate of 72. Laboratory evaluation is fairly unchanged from yesterday. Leukocytosis remains elevated, down slightly from 12.51 to 12.06. Urine is heavily contaminated, have not sent this to culture as one is already pending from before patient began abx. Ultrasound reviewed by radiologist. They advised that they question nonobstructing renal stones versus renal calcification in the bilateral kidneys. Patient reports that she has known very small stones on the left kidney. Reports that this is been verified with CT previously. Patient I discussed the findings. Given her increased pain, and concern for possible infected stone although does not seem to be went obstructing on ultrasound. If the stone was visualized as above are unchanged, these are very unlikely to cause her discomfort, particularly she has had them for quite some time. Plan to obtain CT to evaluate for any possible other abnormality that may be contributing to her symptoms. CT reviewed by radiologist. They contact the department advised that there are 2 nonobstructing stones noted in the kidney. No nephrolithiasis noted on the right side. No hydronephrosis or ureteral enlargement. Discussed these findings with the patient. As patient sounds to have had an adverse reaction to the Keflex was not feeling well after taking this, will change the patient to ciprofloxacin. We did discuss the possible side effects associated with this medication. I encouraged hydration. Encourage close follow-up with primary care for reevaluation. She is given strict return precautions. All her questions and concerns were addressed and she is in agreement with this plan. HPI General Mode of arrival: ambulatory . Date/Time Provider Initiated Documentation: 06/07/18 11:15 . Limitations to Documentation: no limitations . Information obtained by: patient . History of Present Illness 33 year old F presents to the emergency department with the chief complaint of Right-sided flank pain, described as moderate, Quality is described as aching, and is localized to the back and right. Patient reports no radiation. Patient started experiencing this day(s) and it has been constant. No relieving factors improve symptom(s), No exacerbating factors reported . Patient notes no other symptoms.; denies chest pain, cough, fever/ chills, headaches, loss of appetite, rash and shortness of breath. Patient did receive the following treatments prior to arrival, other (has been taking Keflex as prescribed) Related Data Home Medications Medication Instructions Recorded Confirmed epinephrine 0.3 mg IM PRN PRN 04/29/13 06/07/18 levonorgestrel [Mirena] 1 ea INTRAUTERINE ONCE #1 implant 09/20/15 06/07/18 Lactobacillus acidophilus 3 cap PO DAILY 09/27/16 06/07/18 [Probiotic] ciprofloxacin HCl 500 mg PO BID #14 tab 06/07/18 Previous Rx's Medication Instructions Recorded ciprofloxacin HCl 500 mg PO BID #14 tab 06/07/18 Allergies Allergy/AdvReac Type Severity Reaction Status Date / Time Sulfa (Sulfonamide Allergy Mild Unverified 06/06/18 13:47 Antibiotics) acetaminophen [From Vicodin] AdvReac Unverified 06/06/18 13:47 hydrocodone [From Vicodin] AdvReac Unverified 06/06/18 13:47 tramadol AdvReac Unverified 06/06/18 13:47 apples/plums/pears/peaches/pena/raw Allergy Severe swelling/trouble Uncoded 13:47 potatoes/walnuts/almonds/ breathing sugarsnap Allergy Severe swelling Uncoded 06/06/18 13:47 peas/tomatoes/green peppers trouble breathing environmental Allergy Uncoded 06/06/18 13:47 General Stated Complaint: FlankPain LIEN: 3 Review of Systems Constitutional Reports as per HPI and Denies headache(s) ENT Denies headache(s) Cardiovascular Reports as per HPI, Denies chest pain, Reports rapid heart rate, Denies edema, Denies lightheadedness and Denies radiating jaw, neck or arm pain Respiratory Reports as per HPI Gastrointestinal Reports as per HPI, Denies abdominal pain, Denies change in stool character, Denies nausea and Denies vomiting Genitourinary Reports as per HPI, Reports urinary frequency, Reports dysuria (states this has improved since ), Reports flank pain, Denies urinary incontinence, Reports urinary hesitancy, Reports urinary urgency, Denies vaginal discharge and Denies vaginal odor Musculoskeletal Reports as per HPI and Reports back pain Integumentary/Breasts Denies rash Neurologic Denies headache(s) [facility] Social History Smoking/Tobacco Use Status: Current every day Surgical History Appendectomy section Diagnostic Laproscopy Exam Const General: cooperative, healthy appearing, comfortable, no acute distress, well developed and well groomed Nutritional Appearance: average body habitus and well nourished Orientation: alert and awake Eyes General: appearance normal, both eyes and all related structures Resp Effort & Inspection: normal respiratory effort, able to speak in complete sentences and no respiratory distress Auscultation: clear to auscultation bilaterally, no rales, no rhonchi and no wheezes Cardio Rate: regular rate Rhythm: regular rhythm Heart Sounds: S1 normal and S2 normal GI Inspection: normal to inspection, no edema and non-distended Palpation: soft, no hepatosplenomegaly, not firm, no guarding, no hernias, no pulsatile masses, not rigid and nontender Auscultation: normal bowel sounds Back/Spine/Pelvis Back: CVA tenderness (right) Skin General skin exam: no rashes or lesions noted Lesions: no lesions Rashes: no rashes Neuro General: alert, awake and oriented x3 Cognition: normal cognition Speech: speech normal Gait: normal gait Extrem General: no pedal edema, no calf tenderness and normal gait Psych Appearance: grossly normal and well kempt Mental Status: mental status grossly normal Speech and Movement: speech and movement normal Mood: congruent mood Course Vital Signs Temperature 36.8 C 06/07/18 11:05 Pulse 95 H 06/07/18 11:05 Respiratory Rate 16 06/07/18 11:05 Blood Pressure 133/83 06/07/18 11:05 Pulse Oximetry 99 06/07/18 11:05 Temperature 36.8 C 06/07/18 11:05 Temperature Source Temporal Artery Scan 10/08/18 11:05 Pulse 95 H 06/07/18 11:05 Respiratory Rate 16 06/07/18 11:05 Respiratory Effort 06/07/18 11:09 Blood Pressure 133/83 06/07/18 11:05 Pulse Oximetry 99 06/07/18 11:05 Pain Level 10 06/07/18 11:05
[2018-06-07 11:50] LABS: Abs Immature Grans 0.01 k/cumm (0.0-0.09); Absolute Eosinophil Count 0.06 k/cumm (0.0-0.7); Absolute Lymphocyte Count 3.73 k/cumm (1.2-3.4); Absolute Neutrophil Count 7.56 k/cumm (1.2-6.7); Basophils % 0.2; Eosinophils % 0.5; HCT 37.8 % (36.0-46.0); Immature Grans % 0.1; Lymphocytes % 30.9; Mean Corp. HGB Concentration 34.4 g/dL (32.0-36.0); Mean Platelet Volume 9.7 fL (8.0-11.0); Monocytes % 5.6; Neutrophils % 62.7; Platelet Count 326 x1000/uL (130-400); RBC Distribution Width 12.1 % (11.7-14.6); White Blood Cell Count 12.06 k/cumm (4.4-10.8)
[2018-06-07 11:51] LABS: Absolute Basophil Count 0.02 k/cumm (0.0-0.2); Absolute Monocyte Count 0.68 k/cumm (0.11-0.7)
[2018-06-07 12:17] LABS: ALT 21 U/L (12-78); AST 18 U/L (15-37); Albumin 3.8 g/dL (3.4-5.0); Alkaline Phosphatase 64 U/L (46-116); Anion Gap 12.4 mmol/L (3-11); BUN 6 mg/dL (7-18); Bilirubin, Total 0.6 mg/dL (0.2-1.0); CO2 23.6 mmol/L (21.0-32.0); Calcium 8.9 mg/dL (8.5-10.1); Chloride 105 mmol/L (98-107); Glucose 91 mg/dL (70-100); Magnesium 1.9 mg/dL (1.8-2.4); Potassium 3.4 mmol/L (3.5-5.1); Sodium 141 mmol/L (136-145); Total Protein 7.5 g/dL (6.4-8.2)
[2018-06-07 12:23] LABS: Troponin I < 0.02 ng/mL (0.00-0.06)
[2018-06-07 12:26] VITALS: BP 108/68; PULSE 66; RESP 17; TEMP 37; O2SAT 98
[2018-06-07] MEDS: Normal Saline 1,000 ML 1000 ML IV (12:46)
[2018-06-07 13:27] LABS: Bilirubin Negative (Negative); Blood Trace-intact (Negative); Clarity Clear; Glucose Negative (Negative); Ketones 40 mg/dL (Negative); Leukocyte Esterase Negative (Negative); Nitrite Negative (Negative); Specific Gravity 1.015 (1.005-1.025); Urobilinogen 0.2 EU/dL (Up TO 0.2)
--- NOTE | 2018-06-07 13:35 | DI.CT_ITS ---
SYMPTOMS/DIAGNOSIS: RT FLANK PAIN RENAL COLIC CT: Renal colic CT was performed according to protocol. Comparison examinations 04/10 and 09/24/17. Lack of IV contrast limits evaluation of the abdominal and pelvic organs. The visualized lung bases are clear. The unenhanced visualized portions of the liver, spleen, pancreas, gallbladder and adrenal glands are unremarkable. There are two nonobstructing stones less than 3 mm in the left kidney. No right nephrolithiasis is seen. No ureterolithiasis or hydronephrosis is present. The urinary bladder is intact. No bladder stones are present. There are several calcifications in the pelvis which appear stable and are most consistent with vascular calcifications. The reproductive organs are unremarkable except for an intrauterine device in position. The aorta is of normal caliber. The bowel shows no evidence of obstruction or inflammation. No findings to suggest an acute appendicitis are present. No abdominal or pelvic adenopathy, ascites or pneumoperitoneum is seen. Note is made of a moderate sized fat containing umbilical hernia. Degenerative changes are seen in the spine. IMPRESSION: No evidence of obstructive uropathy. The findings were discussed with the emergency department on the date of the examination.
[2018-06-07 13:43] LABS: Bacteria Few HPF (Negative); C & S Indicated? No/Sq. Contamination; Casts Negative LPF (Negative); Crystals Negative HPF (Negative); Epithelial Cells Many HPF (Negative); Mucus Moderate (Negative); WBC 0-2 HPF (0-5)
[2018-06-07] MEDS: Ibuprofen 600 MG TAB PO (13:51)
[2018-06-07 15:17] VITALS: BP 108/68; PULSE 66; RESP 17; TEMP 37; O2SAT 98
== END 2018-06-07 15:18 | disposition home or self-care (01) ==
PROVIDERS: Emergency Provider Physician Assistant; PCP Family Medicine
DX: N10 Acute pyelonephritis (principal); N20.0 Calculus of kidney
CPT/HCPCS: 36415; 76770; 80053; 96360; 99285; 74176; 81003; 81015; 83735; 84484; 85025; 99284

== ENCOUNTER 2018-10-29 17:42 | Outpatient (REF) | payer MEDICAID, SELFPAY ==
[2018-10-29 21:44] LABS: Abs Immature Grans 0.02 k/cumm (0.0-0.09); Absolute Basophil Count 0.02 k/cumm (0.0-0.2); Absolute Eosinophil Count 0.19 k/cumm (0.0-0.7); Absolute Lymphocyte Count 3.46 k/cumm (1.2-3.4); Absolute Monocyte Count 0.65 k/cumm (0.11-0.7); Absolute Neutrophil Count 5.13 k/cumm (1.2-6.7); Basophils % 0.2; HCT 38.1 % (36.0-46.0); HGB 12.9 g/dL (12.0-15.5); Immature Grans % 0.2; Lymphocytes % 36.5; Mean Corp. HGB Concentration 33.9 g/dL (32.0-36.0); Mean Corpuscular Hemoglobin 31.2 pg (27.0-33.0); Mean Corpuscular Volume 92.3 fL (80-95); Mean Platelet Volume 10.3 fL (8.0-11.0); Monocytes % 6.9; Neutrophils % 54.2; Platelet Count 324 x1000/uL (130-400); RBC 4.13 m/cumm (4.00-5.20); White Blood Cell Count 9.47 k/cumm (4.4-10.8)
== END 2018-10-29 18:02 ==
LOC: NCHCN 17:42
PROVIDERS: PCP Family Medicine; Visit Provider Nurse Practitioner
DX: R59.1 Generalized enlarged lymph nodes (principal)
CPT/HCPCS: 85025

== ENCOUNTER 2018-11-02 15:10 | Outpatient (CLI) | payer MEDICAID, SELFPAY ==
--- NOTE | 2018-11-02 15:36 | DI.US_ITS ---
SYMPTOM/DIAGNOSIS: OCCIPITAL LYMPHADENOPATHY, R59.1 ULTRASOUND OF THE NECK: A palpable area in the posterior occipital region was scanned. The patient notes tenderness and a small lump in this area. There is a 9 by 7 by 3 mm. normal appearing posterior lymph node in this area. No suspicious masses are seen. IMPRESSION: 9 mm. normal appearing posterior cervical lymph node.
== END 2018-11-02 15:30 ==
PROVIDERS: PCP Family Medicine; Visit Provider Nurse Practitioner
DX: R59.0 Localized enlarged lymph nodes (principal); R22.1 Localized swelling, mass and lump, neck
CPT/HCPCS: 76536

== ENCOUNTER 2018-11-15 13:37 | Emergency (ER) | payer MEDICAID, SELFPAY ==
--- NOTE | 2018-11-15 13:58 | NUR.NOTE ---
Nursing Note: Per Shelby in Access patient was leaving without being seen and was going to PCP. Felecia Sears.
--- NOTE | 2018-11-16 13:58 | PDOC.ERCMPRO ---
Care Management Progress Note 11/16-Betina presented to the emergency department yesterday afternoon for flank pain. She left without being seen. Betina came back a couple hours later and was treated.
== END 2018-11-15 13:54 | disposition left before discharge ==
PROVIDERS: PCP Family Medicine
DX: R10.9 Unspecified abdominal pain (principal); Z53.21 Procedure and treatment not carried out due to patient leaving prior to being seen by health care provider

== ENCOUNTER 2018-11-15 17:06 | Emergency (ER) | payer MEDICAID, SELFPAY ==
[2018-11-15 17:24] VITALS: BP 145/74; PULSE 121; RESP 18; TEMP 39.4; O2SAT 98
--- NOTE | 2018-11-15 17:38 | W.ED.GENAD ---
Discharge Plan Disposition Patient Disposition: HOME Condition: Improving Discharge Details Chief Complaint: FlankPain Clinical Impression: Exudative pharyngitis Primary Care Provider: Norma Lowe ED Provider: Gibran Hurtado Home Meds and New Rx's Prescriptions: New cefdinir 300 mg capsule 300 mg PO Q12H 10 Days Qty: 20 RF: 0 Continued epinephrine 0.3 MG/0.3 ML auto-injector 0.3 mg IM PRN PRN (Reason: Anaphylaxis) RF: 0 Mirena 1 EACH intrauterine device 1 ea Intrauterine ONCE Qty: 1 RF: 0 Probiotic 1 EACH capsule 3 cap PO DAILY RF: 0 multivitamin Capsule 1 cap PO DAILY RF: 0 Discharge Instructions Instructions: Pharyngitis (ED) Additional Instructions: Home to rest today. Continue Tylenol and/or ibuprofen as needed for pain. Return for worsening or any other acute concerns. Take antibiotics as prescribed. Medical Decision Making 33-year-old female present for 2 concerns: one is 1 week of sore throat for which she was given azithromycin after she was told she had a negative strep test in [place]. Second is that she has dull, achy, right low back pain that was diagnosed with urinary tract infection in clinic. She arrives tachycardic and ill-appearing. IV placed, labs obtained. Patient given fluid bolus, antiemetic, dexamethasone for its anti-inflammatory properties. Patient's rapid strep test is positive. She is given ceftriaxone in the emergency department. Urinalysis is not consistent with acute UTI as it does appear contaminated. Laboratories reveal a white count of 9, hematocrit 38, platelets 215, chemistries reassuring and urinalysis notable for ketones. Patient improved following fluids and medications. She does not have a UTI in my opinion. Consistent with acute streptococcal pharyngitis. Will treat with oral cephalosporin. She stable, improved, appropriate for discharge to home. HPI General Mode of arrival: ambulatory. Date/Time Provider Initiated Documentation: 11/15/18 17:24. Limitations to Documentation: no limitations. Information obtained by: patient. History of Present Illness 33 year old F presents to the emergency department with the chief complaint of Sore throat, fever and chills, right back pain. UTI @ clinic, described as moderate, Quality is described as aching, and is localized to the back and right. Patient reports no radiation. Patient started experiencing this day(s) and it has been constant. No relieving factors improve symptom(s), No exacerbating factors reported . Patient notes fever/chills and other (Sore throat). Patient did receive the following treatments prior to arrival, other (Just finished day 3 of 500 mg azithromycin times3) Related Data Home Medications Medication Instructions Recorded Confirmed epinephrine 0.3 mg IM PRN PRN 04/29/13 11/15/18 Mirena 1 ea INTRAUTERINE ONCE #1 implant 09/20/15 11/15/18 Probiotic 3 cap PO DAILY 09/27/16 11/15/18 cefdinir 300 mg PO Q12H 10 Days #20 cap 11/15/18 multivitamin 1 cap PO DAILY 11/15/18 11/15/18 Previous Rx's Medication Instructions Recorded cefdinir 300 mg PO Q12H 10 Days #20 cap 11/15/18 Allergies Allergy/AdvReac Type Severity Reaction Status Date / Time Sulfa (Sulfonamide Allergy Mild Unverified 11/15/18 18:14 Antibiotics) acetaminophen [From Vicodin] AdvReac Unverified 11/15/18 18:14 hydrocodone [From Vicodin] AdvReac Unverified 11/15/18 18:14 tramadol AdvReac Unverified 11/15/18 18:14 apples/plums/pears/peaches/pena/raw Allergy Severe swelling/trouble Uncoded 11/15/18 18:14 potatoes/walnuts/almonds/ breathing sugarsnap Allergy Severe swelling Uncoded 11/15/18 18:14 peas/tomatoes/green peppers trouble breathing environmental Allergy Uncoded 11/15/18 18:14 General Stated Complaint: FlankPain LIEN: 2 PFSH Surgical History Appendectomy section Diagnostic Laproscopy Social History Smoking/Tobacco Use Status: Current every day Tobacco Type: cigarettes Drug use: Never Substance use type: does not use Do you feel safe at home: Yes Do you feel safe in your relationship?: Yes Exam Narrative Exam Narrative: GEN: awake, alert, oriented 3. Pleasant, well groomed, interactive. HEAD: Normocephalic, atraumatic ENT: Mucous membranes moist, oropharynx with swollen and erythematous tonsillar pillars with overlying white exudate. The uvula is midline and there is no asymmetry, External ear exam unremarkable EYES: PERRL, EOMI NECK: Full ROM, no JIMMY, no menigismus CHEST/RESP: Nontender, clear to auscultation bilateral, no wheeze/rhonchi/rales CARDIOVASCULAR: Regular and tachycardic, no murmur, rub sondra. 2+ Rad pulse bilateral ABDOMEN: Soft, nontender, no mass. +Bowel sounds EXT: Full ROM, no edema, no rash Neuro: Grossly normal neurologic exam, conversant, interactive. Psych: Speech fluent, thoughts congruent, affect normal Course Vital Signs Temperature 39.4 C H 11/15/18 17:24 Pulse 121 H 11/15/18 17:24 Respiratory Rate 18 11/15/18 17:24 Blood Pressure 145/74 H 11/15/18 17:24 Pulse Oximetry 98 11/15/18 17:24 Temperature 39.4 C H 11/15/18 17:24 Temperature Source Oral 11/15/18 17:24 Pulse 121 H 11/15/18 17:24 Respiratory Rate 18 11/15/18 17:24 Blood Pressure 145/74 H 11/15/18 17:24 Blood Pressure Position Sitting 11/15/18 17:24 Pulse Oximetry 98 11/15/18 17:24 Oxygen Delivery Method Room Air 11/15/18 17:24 Oxygen Flow Rate 0 11/15/18 17:24 Lab/Test Results Lab/Test Results: POC Strep Test-[facility](Rapid) Start: 11/15/18 17:33 Freq: .Rapid Strep Test Status: Active Protocol: Document 11/15/18 17:37 [facility] [place]Rec: 11/15/18 17:37 [facility] [id number][place] Strep test-[facility](Rapid)-POC POC-Strep test-[facility] (Rapid) Positive POC-Strep test-[facility] (Rapid) Positive
[2018-11-15 17:48] LABS: Bilirubin Negative (Negative); Blood Moderate (Negative); Clarity Clear; Glucose Negative (Negative); Ketones Trace mg/dL (Negative); Leukocyte Esterase Negative (Negative); Nitrite Negative (Negative); Urobilinogen 0.2 EU/dL (Up TO 0.2); pH 5.5 (5-8)
[2018-11-15] MEDS: Normal Saline 1,000 ML 1000 ML IV ×2 (17:50→18:35)
[2018-11-15] MEDS: Ketorolac 30 MG/ML VIAL IVP (17:54)
[2018-11-15 18:03] LABS: Abs Immature Grans 0.02 k/cumm (0.0-0.09); Absolute Basophil Count 0.02 k/cumm (0.0-0.2); Absolute Eosinophil Count 0.03 k/cumm (0.0-0.7); Absolute Lymphocyte Count 1.86 k/cumm (1.2-3.4); Absolute Monocyte Count 0.73 k/cumm (0.11-0.7); Absolute Neutrophil Count 7.13 k/cumm (1.2-6.7); Basophils % 0.2; Eosinophils % 0.3; HCT 38.4 % (36.0-46.0); HGB 13.2 g/dL (12.0-15.5); Immature Grans % 0.2; Mean Corp. HGB Concentration 34.4 g/dL (32.0-36.0); Mean Corpuscular Hemoglobin 30.8 pg (27.0-33.0); Mean Corpuscular Volume 89.7 fL (80-95); Monocytes % 7.5; Neutrophils % 72.8; Platelet Count 215 x1000/uL (130-400); RBC 4.28 m/cumm (4.00-5.20); RBC Distribution Width 12.6 % (11.7-14.6); White Blood Cell Count 9.79 k/cumm (4.4-10.8)
[2018-11-15] MEDS: Dexamethasone 10 MG/ML VIAL IVP (18:04)
[2018-11-15 18:05] LABS: Bacteria Many HPF (Negative); C & S Indicated? No/Sq. Contamination; Casts Negative LPF (Negative); Crystals Few Amorphous HPF (Negative); Epithelial Cells Many HPF (Negative); Mucus Moderate (Negative)
[2018-11-15 18:21] LABS: ALT 23 U/L (12-78); AST 17 U/L (15-37); Albumin 3.6 g/dL (3.4-5.0); Alkaline Phosphatase 60 U/L (46-116); Anion Gap 8.9 mmol/L (3-11); BUN 10 mg/dL (7-18); Bilirubin, Total 0.3 mg/dL (0.2-1.0); CO2 24.1 mmol/L (21.0-32.0); CREATININE 0.63 mg/dL (0.55-1.02); Calcium 8.8 mg/dL (8.5-10.1); Chloride 101 mmol/L (98-107); Glucose 96 mg/dL (70-100); Potassium 3.5 mmol/L (3.5-5.1); Sodium 134 mmol/L (136-145); Total Protein 7.7 g/dL (6.4-8.2)
[2018-11-15 18:24] VITALS: TEMP 38.5
[2018-11-15] MEDS: Acetaminophen 500 MG TAB 1000 MG PO (19:35)
== END 2018-11-15 19:46 | disposition home or self-care (01) ==
PROVIDERS: Emergency Provider Emergency Medicine; PCP Family Medicine
DX: R10.31 Right lower quadrant pain (principal); J02.0 Streptococcal pharyngitis; F17.210 Nicotine dependence, cigarettes, uncomplicated
CPT/HCPCS: 36415; 80053; 81025; 87880; 96361; 96365; 96375; 99284; 81003; 81015; 85025; 99283; J0696; J1100; J1885

== ENCOUNTER 2018-11-15 17:47 | Outpatient (REF) | payer MEDICAID, SELFPAY ==
[2018-11-15 21:27] LABS: Bilirubin Negative (Negative); Blood Moderate (Negative); Clarity Clear; Glucose Negative (Negative); Ketones Negative (Negative); Leukocyte Esterase Negative (Negative); Nitrite Negative (Negative); Urobilinogen 0.2 EU/dL (Up TO 0.2)
[2018-11-15 21:43] LABS: Bacteria Many HPF (Negative); C & S Indicated? C&S Done As Ordered; Casts Negative LPF (Negative); Crystals Negative HPF (Negative); Mucus Negative (Negative); RBC Negative (0-2); WBC 0-2 HPF (0-5)
[2018-11-15 21:45] LABS: Epithelial Cells Many HPF (Negative)
== END 2018-11-15 18:07 ==
LOC: NCHCN 17:47
PROVIDERS: PCP Family Medicine; Visit Provider Nurse Practitioner
DX: R10.9 Unspecified abdominal pain (principal)
CPT/HCPCS: 81003; 81015; 87086

== ENCOUNTER 2018-12-25 20:17 | Emergency (ER) | payer MEDICAID, SELFPAY ==
[2018-12-25 20:21] VITALS: BP 127/85; PULSE 87; RESP 14; TEMP 37; O2SAT 99
--- NOTE | 2018-12-25 20:21 | W.ED.GENAD ---
Discharge Plan Disposition Patient Disposition: HOME Condition: Fair Discharge Details Chief Complaint: FlankPain Clinical Impression: UTI (urinary tract infection) Primary Care Provider: Norma Lowe ED Provider: Karine Peña Home Meds and New Rx's Prescriptions: New ciprofloxacin HCl [Cipro] 500 mg tablet 500 mg PO BID Qty: 12 RF: 0 Continued epinephrine 0.3 MG/0.3 ML auto-injector 0.3 mg IM PRN PRN (Reason: Anaphylaxis) RF: 0 Mirena 1 EACH intrauterine device 1 ea Intrauterine ONCE Qty: 1 RF: 0 Probiotic 1 EACH capsule 3 cap PO DAILY RF: 0 multivitamin Capsule 1 cap PO DAILY RF: 0 Discharge Instructions Instructions: Ciprofloxacin (By mouth), Urinary Tract Infection in Women (ED) Additional Instructions: Continue to encourage hydration. Please take antibiotics as prescribed. Even if symptoms improve, please take the entire course. Please contact your primary care provider Thursday to discuss results of culture and see if you continue antibiotics is required. If you develop fever/chills, inability to hydrate abdomen/worsening symptoms please seek care urgently once again In regard to your vaginal screen, I will contact you with any positive results and will call in education as required If you develop new or worsening symptoms please seek care urgently once again. Otherwise, please follow-up with your primary care this week Referrals: Norma Lowe [Primary Care Provider] - Discharge Data Discharge Date/Time-TO BE ENTERED AT DEPARTURE: 12/25/18 21:48 Medical Decision Making Patient a 33-year-old female presents today with recurrent CVA tenderness. She is had multiple urinary tract infections. Denies any urinary symptoms and states that she typically does not have any. Instead, the patient typically presents with flank pain is diagnosed with pyelonephritis. She denies any known fevers but states that she has been feeling warm today. Denies any GI upset. No nausea, vomiting or diarrhea. Also endorsing thick white vaginal discharge. Reports that she had this infection after recent treatment of antibiotics for strep throat. States that she is helping with 3-day course of Monistat [id number]. Then had her menses. She reports that after her menses the symptoms returned to a lesser degree. Denies any pelvic pain. Advised vaginal exam. As patient did not respond to her typical treatment, I am concerned that she may have BV or other etiology. She reports no new sexual partners, denies history of STI. Is in monogomous relationship. On exam, patient's vital signs within normal limits. She appears nontoxic and is resting comfortably. She has exquisite tenderness over the CVA, worse in the right than the left. We will perform a vaginal exam with vaginal pack screening. Urinalysis has been sent. As this feels the same as her previous infections , this is likely diagnosis. Considered stone but as her discomfort is spreading from the right to the left this is unlikely. Pain worse with movement, may also be musculoskeletal source. UA appears contaminated, patient has givne new sample for culture. Discussed with Dr. Zapata. Initial report showed WBC, contamination and bacteria. He advised treating and having the PCP decide if patient needs entire course. Vaginal exam without significant abnormality. She has scant amount of thin white discharge. Vag path sent. Will call with positive results. Patient being treated for recurrent UTI. She has allergy to sulfa and has reacted poorly to keflex. Will treat with Cipro, discussed possible side effects. Encouraged hydartion. Discussed new/worsening symptoms and when to seek care urgently once again. She has not been seen by urologist in several years for this, have placed her on primary care coordinator list for urology f/u for her recurrent infections. All of her questions and concerns were addressed, she is in agreement with this plan. Patient positive for BV, will call in Metronidazole. Attempted to call patient but she did not answer and mailbox is full. Will call in AM once back to work 12/26/18 Was able to contact the patient. She has requested this be called into [employer]. Will call this in. Discussed sexual practices. ADvised f/u with [facility] [employer]. She has not had exam in several years, will likely be due for a pap and will be able to ensure clearance of infection. Advised she seek care with new/worsenign symptoms. All questions and concerns addressed. HPI General Mode of arrival: ambulatory. Date/Time Provider Initiated Documentation: 12/25/18 20:20. Limitations to Documentation: no limitations. Information obtained by: patient and RN notes reviewed. History of Present Illness 33 year old F presents to the emergency department with the chief complaint of right flank pain, described as severe and similar to prior episodes, with intensity rated at 10. Quality is described as stabbing, and is localized to the back and right. Patient reports no radiation. and it has been constant. No relieving factors improve symptom(s), No exacerbating factors reported . Patient notes fever/chills (has felt warm today); denies chest pain, cough, diaphoresis, loss of appetite, malaise, nausea/vomiting, rash and shortness of breath. Patient did receive the following treatments prior to arrival, none Related Data Home Medications Medication Instructions Recorded Confirmed epinephrine 0.3 mg IM PRN PRN 04/29/13 12/25/18 Mirena 1 ea INTRAUTERINE ONCE #1 implant 09/20/15 12/25/18 Probiotic 3 cap PO DAILY 09/27/16 12/25/18 multivitamin 1 cap PO DAILY 11/15/18 12/25/18 ciprofloxacin HCl [Cipro] 500 mg PO BID #12 tab 12/25/18 Previous Rx's Medication Instructions Recorded ciprofloxacin HCl [Cipro] 500 mg PO BID #12 tab 12/25/18 Allergies Allergy/AdvReac Type Severity Reaction Status Date / Time Sulfa (Sulfonamide Allergy Mild Unverified 12/25/18 20:47 Antibiotics) acetaminophen [From Vicodin] AdvReac Unverified 12/25/18 20:47 hydrocodone [From Vicodin] AdvReac Unverified 12/25/18 20:47 tramadol AdvReac Unverified 12/25/18 20:47 apples/plums/pears/peaches/pena/raw Allergy Severe swelling/trouble Uncoded 12/25/18 20:47 potatoes/walnuts/almonds/ breathing sugarsnap Allergy Severe swelling Uncoded 12/25/18 20:47 peas/tomatoes/green peppers trouble breathing environmental Allergy Uncoded 12/25/18 20:47 General LIEN: 2 Review of Systems Constitutional Reports as per HPI, Denies chills, Denies fever(s) and Denies poor appetite Cardiovascular Denies chest pain Respiratory Denies cough Gastrointestinal Denies abdominal pain, Denies change in bowel habits, Denies nausea and Denies vomiting Genitourinary Reports as per HPI, Denies hematuria, Denies genital lesions, Denies pelvic pain, Reports flank pain, Denies urinary hesitancy, Denies urinary urgency, Reports vaginal discharge (reports recent yeast infection, continued thick white discharge), Reports vaginal odor and Denies vaginal pruritus Musculoskeletal Reports as per HPI and Reports back pain (right sided flank pain) Integumentary/Breasts Reports as per HPI and Denies rash [facility] Surgical History Appendectomy section Diagnostic Laproscopy Social History Smoking/Tobacco Use Status: Current every day Tobacco Type: cigarettes Years smoked: 14 Drug use: Never Substance use type: does not use Details: CBD gummies for sleep Do you feel safe at home: Yes Do you feel safe in your relationship?: Yes Exam Const General: cooperative, healthy appearing, comfortable, no acute distress, well developed and well groomed Nutritional Appearance: average body habitus and well nourished Orientation: alert and awake Resp Effort & Inspection: normal respiratory effort and no respiratory distress Auscultation: clear to auscultation bilaterally, no rales, no rhonchi and no wheezes Cardio Rate: regular rate Rhythm: regular rhythm Heart Sounds: S1 normal and S2 normal GI Inspection: normal to inspection Palpation: soft, no hepatosplenomegaly, not firm, no guarding, not rigid and nontender External Female Exam: external appearance normal, normal appearance of the urethra, no erythema and No urethral discharge Speculum Exam - Vagina: normal appearance of the vagina, normal vaginal discharge and nontender Speculum Exam - Cervix: abnormal appearance of the cervix (difficulty visualizing) Bimanual Exam- Vagina & Uterus: normal bimanual exam, normal vaginal palpation and uterine size normal Bimanual Exam- Adnexa, other: normal adnexae Back/Spine/Pelvis Back: CVA tenderness (bilateral, worse on the right than left), No erythema and No warmth Skin General skin exam: no rashes or lesions noted Trauma: no lacerations or abrasions Neuro General: alert and awake Cognition: normal cognition Speech: speech normal Gait: normal gait Psych Appearance: grossly normal and well kempt Mental Status: mental status grossly normal Speech and Movement: speech and movement normal
[2018-12-25 20:38] LABS: Bilirubin Negative (Negative); Blood Negative (Negative); Clarity Sl Cloudy; Glucose Negative (Negative); Ketones Negative (Negative); Leukocyte Esterase Negative (Negative); Nitrite Negative (Negative); Urobilinogen 0.2 EU/dL (Up TO 0.2); pH 7.5 (5-8)
--- NOTE | 2018-12-25 20:54 | ED.GENADUL_ITS ---
Discharge Plan Disposition Patient Disposition: HOME Condition: Fair Discharge Details Chief Complaint: FlankPain Clinical Impression: UTI (urinary tract infection) Primary Care Provider: Norma Lowe ED Provider: Karine Peña Home Meds and New Rx's Prescriptions: New ciprofloxacin HCl [Cipro] 500 mg tablet 500 mg PO BID Qty: 12 RF: 0 Continued epinephrine 0.3 MG/0.3 ML auto-injector 0.3 mg IM PRN PRN (Reason: Anaphylaxis) RF: 0 Mirena 1 EACH intrauterine device 1 ea Intrauterine ONCE Qty: 1 RF: 0 Probiotic 1 EACH capsule 3 cap PO DAILY RF: 0 multivitamin Capsule 1 cap PO DAILY RF: 0 Discharge Instructions Instructions: Ciprofloxacin (By mouth), Urinary Tract Infection in Women (ED) Additional Instructions: Continue to encourage hydration. Please take antibiotics as prescribed. Even if symptoms improve, please take the entire course. Please contact your primary care provider Thursday to discuss results of culture and see if you continue antibiotics is required. If you develop fever/chills, inability to hydrate abdomen/worsening symptoms please seek care urgently once again In regard to your vaginal screen, I will contact you with any positive results and will call in education as required If you develop new or worsening symptoms please seek care urgently once again. Otherwise, please follow-up with your primary care this week Referrals: Norma Lowe [Primary Care Provider] - Discharge Data Discharge Date/Time-TO BE ENTERED AT DEPARTURE: 12/25/18 21:48 Medical Decision Making Patient a 33-year-old female presents today with recurrent CVA tenderness. She is had multiple urinary tract infections. Denies any urinary symptoms and states that she typically does not have any. Instead, the patient typically presents with flank pain is diagnosed with pyelonephritis. She denies any known fevers but states that she has been feeling warm today. Denies any GI upset. No nausea, vomiting or diarrhea. Also endorsing thick white vaginal discharge. Reports that she had this infection after recent treatment of antibiotics for strep throat. States that she is helping with 3-day course of Monistat [id number]. Then had her menses. She reports that after her menses the symptoms returned to a lesser degree. Denies any pelvic pain. Advised vaginal exam. As patient did not respond to her typical treatment, I am concerned that she may have BV or other etiology. She reports no new sexual partners, denies history of STI. Is in monogomous relationship. On exam, patient's vital signs within normal limits. She appears nontoxic and is resting comfortably. She has exquisite tenderness over the CVA, worse in the right than the left. We will perform a vaginal exam with vaginal pack screening. Urinalysis has been sent. As this feels the same as her previous infections , this is likely diagnosis. Considered stone but as her discomfort is spreading from the right to the left this is unlikely. Pain worse with movement, may also be musculoskeletal source. UA appears contaminated, patient has givne new sample for culture. Discussed with Dr. Zapata. Initial report showed WBC, contamination and bacteria. He advised treating and having the PCP decide if patient needs entire course. Vaginal exam without significant abnormality. She has scant amount of thin white discharge. Vag path sent. Will call with positive results. Patient being treated for recurrent UTI. She has allergy to sulfa and has reacted poorly to keflex. Will treat with Cipro, discussed possible side effects. Encouraged hydartion. Discussed new/worsening symptoms and when to seek care urgently once again. She has not been seen by urologist in several years for this, have placed her on day care attendant list for urology f/u for her recurrent infections. All of her questions and concerns were addressed, she is in agreement with this plan. Patient positive for BV, will call in Metronidazole. Attempted to call patient but she did not answer and mailbox is full. Will call in AM once back to work 12/26/18 Was able to contact the patient. She has requested this be called into [employer]. Will call this in. Discussed sexual practices. ADvised f/u with [employer]. She has not had exam in several years, will likely be due for a pap and will be able to ensure clearance of infection. Advised she seek care with new/worsenign symptoms. All questions and concerns addressed. HPI General Mode of arrival: ambulatory . Date/Time Provider Initiated Documentation: 12/25/18 20:20 . Limitations to Documentation: no limitations . Information obtained by: patient and RN notes reviewed . History of Present Illness 33 year old F presents to the emergency department with the chief co mplaint of right flank pain, described as severe and similar to prior episodes, with intensity rated at 10. Quality is described as stabbing, and is localized to the back and right. Patient reports no radiation. and it has been constant. No relieving factors improve symptom(s), No exacerbating factors reported . Patient notes fever/chills (has felt warm today); denies chest pain, cough, diaphoresis, loss of appetite, malaise, nausea/vomiting, rash and shortness of breath. Patient did receive the following treatments prior to arrival, none Related Data Home Medications Medication Instructions Recorded Confirmed epinephrine 0.3 mg IM PRN PRN 04/29/13 12/25/18 Mirena 1 ea INTRAUTERINE ONCE #1 implant 09/20/15 12/25/18 Probiotic 3 cap PO DAILY 09/27/16 12/25/18 multivitamin 1 cap PO DAILY 11/15/18 12/25/18 ciprofloxacin HCl [Cipro] 500 mg PO BID #12 tab 12/25/18 Previous Rx's Medication Instructions Recorded ciprofloxacin HCl [Cipro] 500 mg PO BID #12 tab 12/25/18 Allergies Allergy/AdvReac Type Severity Reaction Status Date / Time Sulfa (Sulfonamide Allergy Mild Unverified 12/25/18 20:47 Antibiotics) acetaminophen [From Vicodin] AdvReac Unverified 12/25/18 20:47 hydrocodone [From Vicodin] AdvReac Unverified 12/25/18 20:47 tramadol AdvReac Unverified 12/25/18 20:47 apples/plums/pears/peaches/pena/raw Allergy Severe swelling/trouble Uncoded 12/25/18 20:47 potatoes/walnuts/almonds/ breathing sugarsnap Allergy Severe swelling Uncoded 12/25/18 20:47 peas/tomatoes/green peppers trouble breathing environmental Allergy Uncoded 12/25/18 20:47 General LIEN: 2 Review of Systems Constitutional Reports as per HPI, Denies chills, Denies fever(s) and Denies poor appetite Cardiovascular Denies chest pain Respiratory Denies cough Gastrointestinal Denies abdominal pain, Denies change in bowel habits, Denies nausea and Denies vomiting Genitourinary Reports as per HPI, Denies hematuria, Denies genital lesions, Denies pelvic pain, Reports flank pain, Denies urinary hesitancy, Denies urinary urgency, Reports vaginal discharge (reports recent yeast infection, continued thick white discharge), Reports vaginal odor and Denies vaginal pruritus Musculoskeletal Reports as per HPI and Reports back pain (right sided flank pain) Integumentary/Breasts Reports as per HPI and Denies rash [facility] Surgical History Appendectomy section Diagnostic Laproscopy Social History Smoking/Tobacco Use Status: Current every day Tobacco Type: cigarettes Years sm oked: 14 Drug use: Never Substance use type: does not use Details: CBD gummies for sleep Do you feel safe at home: Yes Do you feel safe in your relationship?: Yes Exam Const General: cooperative, healthy appearing, comfortable, no acute distress, well developed and well groomed Nutritional Appearance: average body habitus and well nourished Orientation: alert and awake Resp Effort & Inspection: normal respiratory effort and no respiratory distress Auscultation: clear to auscultation bilaterally, no rales, no rhonchi and no wheezes Cardio Rate: regular rate Rhythm: regular rhythm Heart Sounds: S1 normal and S2 normal GI Inspection: normal to inspection Palpation: soft, no hepatosplenomegaly, not firm, no guarding, not rigid and nontender External Female Exam: external appearance normal, normal appearance of the urethra, no erythema and No urethral discharge Speculum Exam - Vagina: normal appearance of the vagina, normal vaginal discharge and nontender Speculum Exam - Cervix: abnormal appearance of the cervix (difficulty visualizing) Bimanual Exam- Vagina & Uterus: normal bimanual exam, normal vaginal palpation and uterine size normal Bimanual Exam- Adnexa, other: normal adnexae Back/Spine/Pelvis Back: CVA tenderness (bilateral, worse on the right than left), No erythema and No warmth Skin General skin exam: no rashes or lesions noted Trauma: no lacerations or abrasions Neuro General: alert and awake Cognition: normal cognition Speech: speech normal Gait: normal gait Psych Appearance: grossly normal and well kempt Mental Status: mental status grossly normal Speech and Movement: speech and movement normal
[2018-12-25 20:58] LABS: Bacteria Moderate HPF (Negative); C & S Indicated? No/Sq. Contamination; Casts Negative LPF (Negative); Crystals Negative HPF (Negative); Epithelial Cells Moderate HPF (Negative); Mucus Negative (Negative); Other Cells Negative (Negative); WBC Negative HPF (0-5)
[2018-12-25] MEDS: Ciprofloxacin 500 MG TAB PO ×2 (21:39)
[2018-12-25 21:50] LABS: Bilirubin Negative (Negative); Blood Trace-intact (Negative); Clarity Clear; Glucose Negative (Negative); Ketones Negative (Negative); Leukocyte Esterase Negative (Negative); Nitrite Negative (Negative); Specific Gravity 1.015 (1.005-1.025); Urobilinogen 0.2 EU/dL (Up TO 0.2)
[2018-12-25 21:59] LABS: Bacteria Few HPF (Negative); Casts Negative LPF (Negative); Crystals Negative HPF (Negative); Epithelial Cells Few HPF (Negative); Mucus Negative (Negative); Other Cells Negative (Negative); RBC 0-2 (0-2); WBC Negative HPF (0-5)
[2018-12-25 22:00] LABS: C & S Indicated? C&S Done As Ordered
== END 2018-12-25 21:48 | disposition home or self-care (01) ==
PROVIDERS: Emergency Provider Physician Assistant; PCP Family Medicine
DX: N39.0 Urinary tract infection, site not specified (principal); N76.0 Acute vaginitis; B96.89 Other specified bacterial agents as the cause of diseases classified elsewhere; Z87.440 Personal history of urinary (tract) infections
CPT/HCPCS: 99284; 81003; 81015; 87086; 87480; 87510; 87660

== ENCOUNTER 2019-01-04 10:31 | Outpatient (REF) | payer MEDICAID, SELFPAY ==
--- NOTE | 2019-01-04 09:45 | PAPFT_PTH ---
PATIENT: Betina Rolle LOC: [facility] U#:[id number] AGE/SX: 33/F ROOM: RE01/04/[address]: MARCY Gtz : 1985 BED: DIS: 01/04/2019 SPEC #: [id number] RECD: 01/04/19 13:08 STATUS: GEMA REJayden #: [id number] JAYSON: 01/04/19 09:[address]: Hilda Davila DEPT: [facility] Cytology RECD BY: Elaina Hudson ENTERED: 01/04/19 13:08 SP TYPE: PAPFT OTHR DR: Norma Lowe Tissues: 1 - CX/ENDOCX FOR PAP SMEARS Procedures: PAP THIN PREP/UVM Screening HPV DNA PROBE Comments: [id number]
[2019-01-05 15:24] LABS: Chlamydia Result Negative; GC Result Negative; Specimen Description CERVIX
== END 2019-01-04 10:51 ==
LOC: LBN 10:31
PROVIDERS: PCP Family Medicine; Visit Provider Nurse Practitioner Family
DX: Z11.3 Encounter for screening for infections with a predominantly sexual mode of transmission (principal); Z12.4 Encounter for screening for malignant neoplasm of cervix; Z11.51 Encounter for screening for human papillomavirus (HPV)
CPT/HCPCS: 87491; 87591; 88142; 87624

== ENCOUNTER 2019-05-12 15:42 | Emergency (ER) | payer MEDICAID, SELFPAY ==
--- NOTE | 2019-05-12 15:48 | ED.GENADUL_ITS ---
Discharge Plan Disposition Patient Disposition: HOME Condition: Good Discharge Details Chief Complaint: Orthopedic Clinical Impression: Contusion Primary Care Provider: Norma Lowe ED Provider: Karine Peña Home Meds and New Rx's Prescriptions: Continued epinephrine 0.3 MG/0.3 ML auto-injector 0.3 mg IM PRN PRN (Reason: Anaphylaxis) RF: 0 Mirena 1 EACH intrauterine device 1 ea Intrauterine ONCE Qty: 1 RF: 0 Probiotic 1 EACH capsule 3 cap PO DAILY RF: 0 multivitamin Capsule 1 cap PO DAILY RF: 0 Discharge Instructions Instructions: Contusion in Adults (ED) Additional Instructions: Encourage rest, ice, elevation. Tylenol and/or ibuprofen as needed for discomfort. Please follow-up with primary care if pain persists over the next week. Referrals: Norma Lowe [Primary Care Provider] - Discharge Data Discharge Date/Time-TO BE ENTERED AT DEPARTURE: 05/12/19 17:25 Medical Decision Making Patient is a 34 year old female presenting today for evaluation of one month of mid shaft left humeral pain. Feels that the pain is similar to when she had fractured her right humerus several years ago. Reports that she fell and landed striking the left arm against a counter top. Denies other injury at the time of the incident. States that ocassionally she can have pins and needles go into the hand, particularly with pressure applied over the lateral midshaft humerus. States that this has been making it difficult to preform her ADLS, particularly her job. On exam, patient is neurovascularly intact. No obvious deformity. Full ROM of elbow and wrist. 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 Shoulder limited in IR, otherwise ROM full. No pain with palpation about the elbow or shoulder, pain is only elicited with pain over the lateral midshaft humerus with no palpable defect. Able to flex and extend against resistence. Normal hook test, no humberto deformity, normal palpation of deltoid and triceps. Plan for imaging FINDINGS: Bones/joints: No fracture or dislocation. Soft tissues: Small nonspecific soft tissue hyperdensity. IMPRESSION: No acute findings. Discussed these findings with the patient. Advised likely contusion. I see no evidence of muscular injury, tenderness detachment or rupture, bony abnormality. Advised likely has associated with swelling. Encourage the use of ibuprofen. Encouraged rice. Advised to follow-up with primary care if not improving in 1 week. We discussed new/worsening symptoms when to seek care urgently once again. All of her questions and concerns were addressed and she is agreement this plan. HPI General Mode of arrival: ambulatory . Date/Time Provider Initiated Documentation: 05/12/19 15:46 . Limitations to Documentation: no limitations . Information obtained by: patient and RN notes reviewed . History of Present Illness 34 year old F presents to the emergency department with the chief complaint of left humeral pain, described as moderate, Quality is described as aching, and is localized to the left and upper extremity. Patient reports no radiation. Patient started experiencing this month(s) (1) and it has been intermittent. Immobilization improves symptom(s), Movement worsens symptoms . Patient notes no other symptoms.; denies fever/chills, rash, shortness of breath and weakness. Patient did receive the following treatments prior to arrival, none Related Data Home Medications Medication Instructions Recorded Confirmed epinephrine 0.3 mg IM PRN PRN 04/29/13 05/12/19 Mirena 1 ea INTRAUTERINE ONCE #1 implant 09/20/15 05/12/19 Probiotic 3 cap PO DAILY 09/27/16 05/12/19 multivitamin 1 cap PO DAILY 11/15/18 05/12/19 Allergies Allergy/AdvReac Type Severity Reaction Status Date / Time Sulfa (Sulfonamide Allergy Mild Verified 05/12/19 15:53 Antibiotics) acetaminophen [From Vicodin] AdvReac Verified 05/12/19 15:53 hydrocodone [From Vicodin] AdvReac Verified 05/12/19 15:53 tramadol AdvReac Verified 05/12/19 15:53 apples/plums/pears/peaches/pena/raw Allergy Severe swelling/trouble Uncoded 05/12/19 15:53 potatoes/walnuts/almonds/ breathing sugarsnap Allergy Severe swelling Uncoded 05/12/19 15:53 peas/tomatoes/green peppers trouble breathing environmental Allergy Uncoded 05/12/19 15:53 General LIEN: 2 Review of Systems Constitutional Constitutional: Reports as per HPI, Denies chills, Denies fever(s), Denies headache(s) and Denies weakness ENT Ears, Nose, Mouth, and Throat: Denies headache(s) Cardiovascular Cardiovascular: Reports as per HPI Respiratory Respiratory: Reports as per HPI and Denies cough Musculoskeletal Musculoskeletal: Reports as per HPI and Denies tingling Integumentary/Breasts Skin/Breast: Reports as per HPI, Denies rash and Denies wounds Neurologic Neurologic: Reports as per HPI, Denies headache(s), Denies tingling, Denies paresthesias and Denies weakness [facility] Medical History IUD surveillance (Acute) Personal history of cervical dysplasia (Acute 02/02/14) 2003 JAUN II - LEEP Rx Surgical History Appendectomy section X 2 Diagnostic Laproscopy Family History Mother Cervical cancer Maternal Aunt Breast cancer Social History Smoking/Tobacco Use Status: Current every day Tobacco Type: cigarettes Alcohol Intake: current Alcohol Intake frequency: holidays/special occasions only Drug use: Never Substance use type: does not use Details: CBD gummies for sleep Do you feel safe at home: Yes Do you feel safe in your relationship?: Yes History History 3 Para 2 Hx # Term Pregnancies Multiple births Hx # Pregnancies Ectopic pregnancies AB induced Hx Number of Living Children AB spontaneous Exam Const General: cooperative, healthy appearing, comfortable, no acute distress, well developed and well groomed Nutritional Appearance: average body habitus and well nourished Orientation: alert and awake Resp Effort & Inspection: normal respiratory effort, able to speak in complete sentences and no respiratory distress Cardio Rate: regular rate Rhythm: regular rhythm Skin General skin exam: no rashes or lesions noted Lesions: no lesions Rashes: no rashes Trauma: no lacerations or abrasions Neuro General: alert and awake Cognition: normal cognition Speech: speech normal Gait: normal gait Motor: muscle tone normal throughout Sensory Exam: no sensory deficits noted Extrem General: normal to inspection, normal capillary refill and no joint enlargement Right upper extremity: normal capillary refill, no joint enlargement, shoulder/upper arm Details: normal to inspection, tenderness (midshaft humerus, maximal laterally) and axillary nerve sensory function normal; no swelling, ROM limited (unwilling to preform active IR rotation), no lacerations, no ecchymosis, no penetrating wound, no deformity and no unusual warmth, elbow/forearm Details: normal to inspection, normal ROM and distal pulses intact; no tenderness, no swelling, no unusual warmth, no lacerations, no ecchymosis, no crepitus and no deformity, wrist Details: normal to inspection and normal ROM; no tenderness and no swelling and hand Details: normal to inspection, normal capillary refill, neuromotor exam normal, neurosensory exam normal, vascular exam Details: radial pulse present, ulnar pulse present and normal capillary refill and no swelling; no tenderness; ROM limited (limited IR of shoulder) Psych Appearance: grossly normal and well kempt Mental Status: mental status grossly normal Speech and Movement: speech and movement normal
[2019-05-12 15:49] VITALS: BP 135/76; PULSE 92; RESP 16; TEMP 36.5; O2SAT 98
--- NOTE | 2019-05-12 15:52 | DI.RAD_ITS ---
SYMPTOM/DIAGNOSIS: TRAUMA, MIDSHAFT HUMERAL PAIN LEFT HUMERUS. No fracture or dislocation is seen. The shoulder and elbow are unremarkable as visualized. IMPRESSION: Negative humerus.
--- NOTE | 2019-05-12 16:58 | DI.VRAD_ITS ---
EXAM: XR Left Humerus EXAM DATE/TIME: 05/12/2019 3:53 PM CLINICAL HISTORY: 34 years old, female; Other: Trauma, midshaft humeral pain TECHNIQUE: Imaging protocol: XR Left humerus Views: 2 or more views. COMPARISON: No relevant prior studies available. FINDINGS: Bones/joints: No fracture or dislocation. Soft tissues: Small nonspecific soft tissue hyperdensity. IMPRESSION: No acute findings. Dictated and Authenticated by: Domingo Mallory MD. Ordering:EDWIGE Milton MD
== END 2019-05-12 17:25 | disposition home or self-care (01) ==
PROVIDERS: Emergency Provider Physician Assistant; PCP Family Medicine
DX: S40.022A Contusion of left upper arm, initial encounter (principal); X58.XXXA Exposure to other specified factors, initial encounter
CPT/HCPCS: 99283; 73060; 99282

== ENCOUNTER 2019-05-28 12:15 | Emergency (ER) | payer MEDICAID, SELFPAY ==
[2019-05-28 12:20] VITALS: BP 132/78; PULSE 93; RESP 16; TEMP 36.8; O2SAT 97
[2019-05-28 12:49] LABS: Bacteria Many HPF (Negative); Crystals Negative HPF (Negative); Epithelial Cells Many HPF (Negative); Mucus Negative (Negative); RBC 20-50 (0-2); WBC >50 HPF (0-5)
[2019-05-28 12:50] LABS: C & S Indicated? No/Sq. Contamination
--- NOTE | 2019-05-28 12:52 | W.ED.GENAD ---
Discharge Plan Disposition Patient Disposition: HOME Condition: Improving Discharge Details Chief Complaint: Urinary Clinical Impression: UTI (urinary tract infection) Primary Care Provider: Norma Lowe ED Provider: Gibran Hurtado Home Meds and New Rx's Prescriptions: New cephalexin 500 mg capsule 500 mg PO TID 7 Days Qty: 21 RF: 0 metronidazole [Flagyl] 500 mg tablet 500 mg PO BID Qty: 14 RF: 0 Continued epinephrine 0.3 MG/0.3 ML auto-injector 0.3 mg IM PRN PRN (Reason: Anaphylaxis) RF: 0 Mirena 1 EACH intrauterine device 1 ea Intrauterine ONCE Qty: 1 RF: 0 Probiotic 1 EACH capsule 3 cap PO DAILY RF: 0 multivitamin Capsule 1 cap PO DAILY RF: 0 Discharge Instructions Instructions: Urinary Tract Infection in Women (ED) Additional Instructions: Home to rest today. Return if you develop fever, worsening discomfort, change to vaginal discharge, or any other acute concern. Take indications as prescribed and continue your regular medications. Follow-up with Dr. Lowe if not improving in 5 to 7 days time. Medical Decision Making 34-year-old female presents with dysuria over days time with associated vaginal discharge says is similar to previous episodes of bacterial vaginosis. She is afebrile and well-appearing, no evidence of peritonitis on exam. Gynecologic exam was deferred. Urinalysis reveals numerous white blood cells with many bacteria. I will treat her with a course of oral antibiotic. She states that she has history of recurrent bacterial vaginosis that improves with Flagyl, I do feels reasonable to treat for both today. She understands homecare, follow-up/return precautions. She stable and appropriate for discharge home at this time. Lab Data Lab results reviewed: Yes I reviewed the patient's lab results. Labs: Laboratory Results - last 24 hr 05/28/19 12:29 Urine Color Cancelled Urine Clarity Cancelled Urine pH Cancelled Ur Specific Grayson Cancelled Urine Protein Cancelled Urine Ketones Cancelled Urine Blood Cancelled Urine Nitrite Cancelled Urine Bilirubin Cancelled Urine Urobilinogen Cancelled Ur Leukocyte Esterase Cancelled Urine RBC 20-50 H Urine WBC >50 Ur Epithelial Cells Many Urine Crystals Negative Urine Bacteria Many Urine Casts Urine Mucus Negative Ur Culture Indicated? No/sq. contamination Urine Glucose Cancelled HPI General Mode of arrival: ambulatory. Date/Time Provider Initiated Documentation: 05/28/19 12:34. Limitations to Documentation: no limitations. Information obtained by: patient. History of Present Illness 34 year old F presents to the emergency department with the chief complaint of 3 days of the urinary frequency, urgency, burning with vaginal discharge, described as similar to prior episodes, and is localized to the abdomen. Patient flank. Patient started experiencing this day(s) and it has been constant. No relieving factors improve symptom(s), No exacerbating factors reported . Patient notes other (Vaginal discharge); denies fever/chills. Patient did receive the following treatments prior to arrival, other ([id number] Urostat) Related Data Home Medications Medication Instructions Recorded Confirmed epinephrine 0.3 mg IM PRN PRN 04/29/13 05/28/19 Mirena 1 ea INTRAUTERINE ONCE #1 implant 09/20/15 05/28/19 Probiotic 3 cap PO DAILY 09/27/16 05/28/19 multivitamin 1 cap PO DAILY 11/15/18 05/28/19 cephalexin 500 mg PO TID 7 Days #21 cap 05/28/19 metronidazole [Flagyl] 500 mg PO BID #14 tab 05/28/19 Previous Rx's Medication Instructions Recorded cephalexin 500 mg PO TID 7 Days #21 cap 05/28/19 metronidazole [Flagyl] 500 mg PO BID #14 tab 05/28/19 Allergies Allergy/AdvReac Type Severity Reaction Status Date / Time Sulfa (Sulfonamide Allergy Mild Verified 05/28/19 12:23 Antibiotics) acetaminophen [From Vicodin] AdvReac Verified 05/28/19 12:23 hydrocodone [From Vicodin] AdvReac Verified 05/28/19 12:23 tramadol AdvReac Verified 05/28/19 12:23 apples/plums/pears/peaches/pena/raw Allergy Severe swelling/trouble Uncoded 05/28/19 12:23 potatoes/walnuts/almonds/ breathing sugarsnap Allergy Severe swelling Uncoded 05/28/19 12:23 peas/tomatoes/green peppers trouble breathing environmental Allergy Uncoded 05/28/19 12:23 General Stated Complaint: Urinary LIEN: 3 Review of Systems Review of Systems Narrative: 6 systems reviewed and otherwise negative. Patient states she has vaginal discharge similar to previous bacterial vaginosis. [facility] Medical History IUD surveillance (Acute) Personal history of cervical dysplasia (Acute 02/02/14) 2003 JAUN II - LEEP Rx Surgical History Appendectomy section X 2 Diagnostic Laproscopy Family History Mother Cervical cancer Maternal Aunt Breast cancer Social History Smoking/Tobacco Use Status: Current every day Tobacco Type: cigarettes Years smoked: 14 Alcohol Intake: current Alcohol Intake frequency: holidays/special occasions only Drug use: Never Substance use type: does not use Details: CBD gummies for sleep Do you feel safe at home: Yes Do you feel safe in your relationship?: Yes History History 3 Para 2 Hx # Term Pregnancies Multiple births Hx # Pregnancies Ectopic pregnancies AB induced Hx Number of Living Children AB spontaneous Exam Narrative Exam Narrative: GEN: awake, alert, oriented 3. Pleasant, well groomed, interactive. HEAD: Normocephalic, atraumatic ENT: Mucous membranes moist, oropharynx unremarkable, External ear exam unremarkable EYES: PERRL, EOMI NECK: Full ROM, no JIMMY, no menigismus CHEST/RESP: Nontender, clear to auscultation bilateral, no wheeze/rhonchi/rales CARDIOVASCULAR: RRR, no murmur, rub sondra. 2+ Rad pulse bilateral ABDOMEN: Soft, minimal suprapubic tenderness without rebound or guarding, no mass. +Bowel sounds EXT: Full ROM, no edema, no rash Neuro: Grossly normal neurologic exam, conversant, interactive. Psych: Speech fluent, thoughts congruent, affect normal Course Vital Signs Vital signs: Vital Signs Temperature 36.8 C 05/28/19 12:20 Pulse 93 H 05/28/19 12:20 Respiratory Rate 16 05/28/19 12:20 Blood Pressure 132/78 05/28/19 12:20 Pulse Oximetry 97 05/28/19 12:20 Temperature 36.8 C 05/28/19 12:20 Pulse 93 H 05/28/19 12:20 Respiratory Rate 16 05/28/19 12:20 Respiratory Effort Non-Labored 05/28/19 12:23 Blood Pressure 132/78 05/28/19 12:20 Pulse Oximetry 97 05/28/19 12:20 Pain Level 4 05/28/19 12:31 Lab/Test Results Lab/Test Results: Laboratory Tests Range/Units 05/28/19 12:29 Urine Color Cancelled Urine Clarity Cancelled Urine pH Cancelled Ur Specific Grayson Cancelled Urine Protein Cancelled Urine Ketones Cancelled Urine Blood Cancelled Urine Nitrite Cancelled Urine Bilirubin Cancelled Urine Urobilinogen Cancelled Ur Leukocyte Esterase Cancelled Urine RBC (0-2) 20-50 H Urine WBC (0-5) HPF >50 Ur Epithelial Cells (Negative) HPF Many Urine Crystals (Negative) HPF Negative Urine Bacteria (Negative) HPF Many Urine Casts (Negative) LPF Urine Mucus (Negative) Negative Ur Culture Indicated? No/sq. contamination Urine Glucose Cancelled
== END 2019-05-28 13:21 | disposition home or self-care (01) ==
PROVIDERS: Emergency Provider Emergency Medicine; PCP Family Medicine
DX: N39.0 Urinary tract infection, site not specified (principal)
CPT/HCPCS: 99283; 81003; 81015

== ENCOUNTER 2019-05-29 15:24 | Emergency (ER) | payer MEDICAID, SELFPAY ==
[2019-05-29 15:30] VITALS: BP 126/85; PULSE 102; RESP 18; TEMP 37.1; O2SAT 98
--- NOTE | 2019-05-29 16:26 | ED.GENADUL_ITS ---
Discharge Plan Disposition Patient Disposition: HOME Discharge Details Chief Complaint: Urinary Clinical Impression: Pyelonephritis Primary Care Provider: Norma Lowe ED Provider: Frantz Houston Home Meds and New Rx's Prescriptions: New levofloxacin [Levaquin] 750 mg tablet 750 mg PO DAILY Qty: 4 RF: 0 promethazine 25 mg tablet 25 mg PO Q6H PRN (Reason: nausea and vomiting) Qty: 10 RF: 0 Continued epinephrine 0.3 MG/0.3 ML auto-injector 0.3 mg IM PRN PRN (Reason: Anaphylaxis) RF: 0 Mirena 1 EACH intrauterine device 1 ea Intrauterine ONCE Qty: 1 RF: 0 Probiotic 1 EACH capsule 3 cap PO DAILY RF: 0 metronidazole [Flagyl] 500 mg tablet 500 mg PO BID Qty: 14 RF: 0 multivitamin Capsule 1 cap PO DAILY RF: 0 Discontinued cephalexin 500 mg capsule 500 mg PO TID 7 Days Qty: 21 RF: 0 Discharge Instructions Instructions: Kidney Infection (ED) Additional Instructions: Return to the emergency department immediately for any new or significant worsening of symptoms, persistent nausea or vomiting, inability to tolerate your antibiotic. Otherwise get plenty of rest, stay well-hydrated, and follow-up with your primary care provider as needed for reassessment. Stand Alone Forms: Work Release Referrals: Norma Lowe [Primary Care Provider] - (As needed for reassessment if not improving) Medical Decision Making Patient presenting to the emergency department for worsening urinary tract infectious type symptoms. Patient was seen in the emergency department yesterday by Dr. Hurtado and placed upon Keflex. Patient did state some vaginal discharge consistent with her previous episodes of bacterial vaginosis so was placed upon Flagyl. Patient reports that the vaginal discharge has improved denies any pelvic pain or discomfort but states continued discomfort with urination, right flank pain, and that she started running a fever today. Patient denies any nausea or vomiting but this state generalized malaise and poor p.o. intake. Physical exam shows right CVA tenderness, suprapubic di scomfort, otherwise nondiagnostic exam. Given that patient has been on antibiotics and is not improving and feels worse with now running a fever I do feel that labs, IV fluids, and treatment as needed. Reviewed previous note and no culture has returned yet but plan to place patient on Levaquin instead of Keflex. I did discuss with patient risk versus benefit along with side effects of fluoroquinolone use. Patient was agreeable to use of this medication. Patient given IV dose while pending labs. Review of labs showed no leukocytosis, and otherwise unremarkable CBC, normal CMP, negative . Did not resend urinalysis due to 1 already sent yesterday with pending culture. Reassessed patient and she states no worsening of symptoms but no significant improvement. Did discuss with patient potential to stay for observation stay due to her pyelonephritis but she reported that she would prefer to go home. Patient p.o. challenged and was able to tolerate p.o. intake. Given this I do feel the patient is able to be safely discharged home with close return precautions. Patient seems reasonable to return if needed. After discussion of diagnosis and plan of care patient has no further needs, questions, or concerns and states clear understanding to return to the emergency department for any worsening symptoms. HPI General Mode of arrival: ambulatory . Date/Time Provider Initiated Documentation: 05/29/19 15:39 . Limitations to Documentation: no limitations . Information obtained by: patient, RN notes reviewed and old records reviewed . History of Present Illness 34 year old F presents to the emergency department with the chief complaint of UTI, described as moderate, with intensity rated at 3. Quality is described as aching, and is localized to the back (Right flank). Patient started experiencing this week(s) (1) and it has been constant. No relieving factors improve symptom(s), Patient did receive the following treatments prior to arrival, other (Acetaminophen, 4 doses of Keflex) Related Data Home Medications Medication Instructions Recorded Confirmed epinephrine 0.3 mg IM PRN PRN 04/29/13 05/28/19 Mirena 1 ea INTRAUTERINE ONCE #1 implant 09/20/15 05/28/19 Probiotic 3 cap PO DAILY 09/27/16 05/28/19 multivitamin 1 cap PO DAILY 11/15/18 05/28/19 metronidazole [Flagyl] 500 mg PO BID #14 tab 05/28/19 levofloxacin [Levaquin] 750 mg PO DAILY #4 tab 05/29/19 promethazine 25 mg PO Q6H PRN #10 tab 05/29/19 Previous Rx's Medication Instructions Recorded metronidazole [Flagyl] 500 mg PO BID #14 tab 05/28/19 levofloxacin [Levaquin] 750 mg PO DAILY #4 tab 05/29/19 promethazine 25 mg PO Q6H PRN #10 tab 05/29/19 Allergies Allergy/AdvReac Type Severity Reaction Status Date / Time Sulfa (Sulfonamide Allergy Mild Verified 05/28/19 12:23 Antibiotics) acetaminophen [From Vicodin] AdvReac Verified 05/28/19 12:23 hydrocodone [From Vicodin] AdvReac Verified 05/28/19 12:23 tramadol AdvReac Verified 05/28/19 12:23 apples/plums/pears/peaches/pena/raw Allergy Severe swelling/trouble Uncoded 05/28/19 12:23 potatoes/walnuts/almonds/ breathing sugarsnap Allergy Severe swelling Uncoded 05/28/19 12:23 peas/tomatoes/green peppers trouble breathing environmental Allergy Uncoded 05/28/19 12:23 General Stated Complaint: Urinary LIEN: 3 Review of Systems Constitutional Constitutional: Denies body ache(s), Reports chills, Reports fever(s), Reports malaise and Denies weakness Cardiovascular Cardiovascular: Denies chest pain Respiratory Respiratory: Reports system reviewed and no additional complaints, except as docu Gastrointestinal Gastrointestinal: Denies abdominal pain, Denies nausea and Denies vomiting Genitourinary Genitourinary: Reports as per HPI, Denies hematuria, Reports dysuria, Denies pelvic pain, Reports flank pain and Reports vaginal discharge (improving) Neurologic Neurologic: Denies confusion and Denies weakness Psychiatric Psychiatric: Denies confusion [facility] Medical History IUD surveillance (Acute) Personal history of cervical dysplasia (Acute 02/02/14) 2003 JAUN II - LEEP Rx Surgical History Appendectomy section X 2 Diagnostic Laproscopy Family History Mother Cervical cancer Maternal Aunt Breast cancer Social History Smoking/Tobacco Use Status: Current every day Tobacco Type: cigarettes Years smoked: 14 Alcohol Intake: current Alcohol Intake frequency: holidays/special occasions only Drug use: Never Substance use type: does not use Details: CBD gummies for sleep Do you feel safe at home: Yes Do you feel safe in your relationship?: Yes History History 3 Para 2 Hx # Term Pregnancies Multiple births Hx # Pregnancies Ectopic pregnancies AB induced Hx Number of Living Children AB spontaneous Exam Const General: cooperative and no acute distress Orientation: alert, awake and oriented x3 Resp Effort & Inspection: normal respiratory effort and able to speak in complete sentences Auscultation: clear to auscultation bilaterally Cardio Rate: regular rate and not tachycardic Rhythm: regular rhythm Heart Sounds: S1 normal and S2 normal GI Palpation: soft, not firm, no guarding, not rigid and tender suprapubicly Back/Spine/Pelvis Back: CVA tenderness (right) Neuro General: alert, awake and oriented x3 Extrem General: normal capillary refill Course Vital Signs Vital signs: Vital Signs Temperature 37.1 C 05/29/19 15:30 Pulse 102 H 05/29/19 15:30 Respiratory Rate 18 05/29/19 15:30 Blood Pressure 126/85 05/29/19 15:30 Pulse Oximetry 98 05/29/19 15:30 Temperature 37.1 C 05/29/19 15:30 Temperature Source Temporal Artery Scan 05/29/19 15:30 Pulse 102 H 05/29/19 15:30 Respiratory Rate 18 05/29/19 15:30 Respiratory Effort Non-Labored 05/29/19 15:37 Blood Pressure 126/85 05/29/19 15:30 Blood Pressure Position Sitting 05/29/19 15:30 Pulse Oximetry 98 05/29/19 15:30 Oxygen Delivery Method Room Air 05/29/19 15:30 Oxygen Flow Rate 0 05/29/19 15:30 Pain Level 0 05/29/19 15:30
[2019-05-29] MEDS: Normal Saline 1,000 ML 1000 ML IV (16:30)
[2019-05-29] MEDS: Ondansetron 4 MG/2 ML VIAL IVP (16:35)
[2019-05-29 16:36] LABS: HCT 39.4 % (36.0-46.0); HGB 13.7 g/dL (12.0-15.5); Mean Corp. HGB Concentration 34.8 g/dL (32.0-36.0); Mean Corpuscular Hemoglobin 31.6 pg (27.0-33.0); Mean Platelet Volume 9.2 fL (8.0-11.0); Platelet Count 302 x1000/uL (130-400); RBC 4.33 m/cumm (4.00-5.20); RBC Distribution Width 12.2 % (11.7-14.6); White Blood Cell Count 8.54 k/cumm (4.4-10.8)
[2019-05-29] MEDS: Ketorolac 30 MG/ML VIAL IVP (16:37)
[2019-05-29 16:52] LABS: ALT 25 U/L (14-59); AST 17 U/L (15-37); Albumin 3.8 g/dL (3.4-5.0); Alkaline Phosphatase 54 U/L (46-116); BUN 8 mg/dL (7-18); Bilirubin, Total 0.3 mg/dL (0.2-1.0); CREATININE 0.69 mg/dL (0.55-1.02); Calcium 8.7 mg/dL (8.5-10.1); Chloride 104 mmol/L (98-107); Glucose 100 mg/dL (70-100); Potassium 3.6 mmol/L (3.5-5.1); Sodium 140 mmol/L (136-145); Total Protein 7.5 g/dL (6.4-8.2)
[2019-05-29] MEDS: levoFLOXacin 750 MG/150 ML BAG 100 MG IVPB (17:12)
[2019-05-29] MEDS: Promethazine 25 MG TAB PO ×2 (18:33→19:25)
== END 2019-05-29 19:35 | disposition home or self-care (01) ==
PROVIDERS: Emergency Provider Nurse Practitioner Family; PCP Family Medicine
DX: N10 Acute pyelonephritis (principal)
CPT/HCPCS: 36415; 80053; 81025; 85027; 96361; 96365; 96375; 99284; J1885; J1956; J2405

== ENCOUNTER 2019-05-30 10:40 | Emergency (ER) | payer MEDICAID, SELFPAY ==
[2019-05-30 10:45] VITALS: BP 136/74; PULSE 85; RESP 16; TEMP 36.8; O2SAT 98
--- NOTE | 2019-05-30 10:48 | ED.GENADUL_ITS ---
Discharge Plan Disposition Patient Disposition: HOME Condition: Fair Discharge Details Chief Complaint: FlankPain Clinical Impression: Pyelonephritis Primary Care Provider: Norma Lowe ED Provider: Karine Peña Home Meds and New Rx's Prescriptions: New phenazopyridine [Pyridium] 100 mg tablet 100 mg PO TID PRN (Reason: pain) Qty: 6 RF: 0 Continued epinephrine 0.3 MG/0.3 ML auto-injector 0.3 mg IM PRN PRN (Reason: Anaphylaxis) RF: 0 Mirena 1 EACH intrauterine device 1 ea Intrauterine ONCE Qty: 1 RF: 0 Probiotic 1 EACH capsule 3 cap PO DAILY RF: 0 metronidazole [Flagyl] 500 mg tablet 500 mg PO BID Qty: 14 RF: 0 multivitamin Capsule 1 cap PO DAILY RF: 0 promethazine 25 mg tablet 25 mg PO Q6H PRN (Reason: nausea and vomiting) Qty: 10 RF: 0 Discharge Instructions Instructions: Urinary Tract Infection in Women (ED) Additional Instructions: Encourage hydration. Please continue with the levofloxacin as previously prescribed. You may use the Pyridium as prescribed to help with symptomatic management. Please keep your follow up appointment with your primary care on at 9:35 AM. If you are unable to make this appointment, please call to change. If you develop increased pain, fevers, inability to stay hydrated or other new/worsening symptoms please seek care urgently once again. Referrals: Norma Lowe [Primary Care Provider] - 05/03/20 9:35 am Discharge Data Discharge Date/Time-TO BE ENTERED AT DEPARTURE: 05/30/19 12:03 Medical Decision Making Patient is a 34-year-old male presents today with chief complaint of right flank pain. She is currently being treated with levofloxacin for known pyeloneph ritis. She is only had one dosing thus far. This is her third day she is been here in a row. Was initially begun on Keflex for UTI. However, she developed CVA tenderness in the interim and was begun on levofloxacin yesterday. Patient contacted her primary care advise she return to the emergency department once again. Patient has been here on multiple previous episodes for UTI and pyelonephritis. She reports that her pain is no worse today than it was yesterday. She denies any nausea vomiting. Continues to have some dysuria and increased frequency. Has not found that [id number] Azo has not been of benefit to help with symptomatic management. On exam, patient is resting comfortably. She appears to be at her baseline. Vital signs are within normal limits. She does endorse some right CVA tenderness but exam is otherwise benign. No rashes noted. No peritoneal findings. We discussed management options. She was initially questioning if the levofloxacin had not had time to work. I did advise that one dose of the medication was not enough time to have noted the benefits and that this was to be expected. She does report that the vaginal discharge has began increasing once again despite being on the oral Flagyl. They did advise that if her pain has increased, persist or change we should reevaluate her with further labs and imaging. We were contacted by her primary care who advised the patient would need imaging. However, after lengthy discussion, the patient declines labs or imaging at this point and prefers a watchful waiting. She did have an increase in her vaginal discharge, I did recommend a pelvic exam. We did set up for a pelvic exam in the last minute, patient changed her mind declined the exam. She would prefer to follow-up with women's wellness. She believes that this may be in length with her IUD as the increased vaginal discharge has been waxing and waning since the placement of her IUD 4 years ago. At this point, I do not see any evidence of acute emergent interventions. She seems to be on the correct medications. She is requesting a prescription for Pyridium to help with symptomatic management. She was given strict return precautions. She will follow-up with both primary care as well as her biological photographer. All of her questions and concerns were addressed and she is in agreement this plan. [facility] General Mode of arrival: ambulatory . Date/Time Provider Initiated Documentation: 05/30/19 10:45 . Limitations to Documentation: no limitations . Information obtained by: patient and RN notes reviewed . History of Present Illness 34 year old F presents to the emergency department with the chief complaint of dysurea, described as moderate and similar to prior episodes, with intensity rated at 8. Quality is described as burning, and is localized to the back and pelvis. Patient reports no radiation. Patient started experiencing this week(s) and it has been constant. No relieving factors improve symptom(s), Other factors that worsen symptoms (worse with and after urination) . Patient notes denies chest pain, diaphoresis, fever/chills, headaches, loss of appetite, nausea/vomiting, rash and shortness of breath. Patient did receive the following treatments prior to arrival, other (has received 1 dose of Levofloxacin) Related Data Home Medications Medication Instructions Recorded Confirmed epinephrine 0.3 mg IM PRN PRN 04/29/13 05/30/19 Mirena 1 ea INTRAUTERINE ONCE #1 implant 09/20/15 05/30/19 Probiotic 3 cap PO DAILY 09/27/16 05/30/19 multivitamin 1 cap PO DAILY 11/15/18 05/30/19 metronidazole [Flagyl] 500 mg PO BID #14 tab 05/28/19 05/30/19 promethazine 25 mg PO Q6H PRN #10 tab 05/29/19 05/30/19 phenazopyridine [Pyridium] 100 mg PO TID PRN #6 tab 05/30/19 Previous Rx's Medication Instructions Recorded metronidazole [Flagyl] 500 mg PO BID #14 tab 05/28/19 promethazine 25 mg PO Q6H PRN #10 tab 05/29/19 phenazopyridine [Pyridium] 100 mg PO TID PRN #6 tab 05/30/19 Allergies Allergy/AdvReac Type Severity Reaction Status Date / Time Sulfa (Sulfonamide Allergy Mild Verified 05/30/19 10:49 Antibiotics) acetaminophen [From Vicodin] AdvReac Verified 05/30/19 10:49 hydrocodone [From Vicodin] AdvReac Verified 05/30/19 10:49 tramadol AdvReac Verified 05/30/19 10:49 apples/plums/pears/peaches/pena/raw Allergy Severe swelling/trouble Uncoded 05/30/19 10:49 potatoes/walnuts/almonds/ breathing sugarsnap Allergy Severe swelling Uncoded 05/30/19 10:49 peas/tomatoes/green peppers trouble breathing environmental Allergy Uncoded 05/30/19 10:49 General LIEN: 3 Review of Systems Constitutional Constitutional: Reports as per HPI, Denies chills, Denies fever(s) and Denies poor appetite Cardiovascular Cardiovascular: Denies chest pain Respiratory Respiratory: Denies cough Gastrointestinal Gastrointestinal: Denies abdominal pain, Denies change in bowel habits, Denies nausea and Denies vomiting Genitourinary Genitourinary: Reports as per HPI Musculoskeletal Musculoskeletal: Reports as per HPI and Reports back pain Integumentary/Breasts Skin/Breast: Reports as per HPI and Denies rash [facility] Medical History IUD surveillance (Acute) Personal history of cervical dysplasia (Acute 02/02/14) 2002 JAUN II - LEEP Rx Surgical History Appendectomy section X 2 Diagnostic Laproscopy Social History Smoking/Tobacco Use Status: Current every day Tobacco Type: cigarettes Years smoked: 14 Alcohol Intake: current Alcohol Intake frequency: holidays/special occasions only Drug use: Never Substance use type: does not use Details: CBD gummies for sleep Do you feel safe at home: Yes Do you feel safe in your relationship?: Yes History History 3 Para 2 Hx # Term Pregnancies Multiple births Hx # Pregnancies Ectopic pregnancies AB induced Hx Number of Living Children AB spontaneous Exam Const General: cooperative, healthy appearing, comfortable, no acute distress, well developed and well groomed Nutritional Appearance: average body habitus and well nourished Orientation: alert and awake Resp Effort & Inspection: normal respiratory effort and no respiratory distress Auscultation: clear to auscultation bilaterally, no rales, no rhonchi and no wheezes Cardio Rate: regular rate Rhythm: regular rhythm Heart Sounds: S1 normal and S2 normal GI Inspection: normal to inspection Palpation: soft, no hepatosplenomegaly, not firm, no guarding, not rigid and nontender Back/Spine/Pelvis Back: CVA tenderness (right) Skin General skin exam: no rashes or lesions noted Trauma: no lacerations or abrasions Neuro General: alert and awake Cognition: normal cognition Speech: speech normal Gait: normal gait Psych Appearance: grossly normal and well kempt Mental Status: mental status grossly normal Speech and Movement: speech and movement normal
[2019-05-30 10:51] LABS: Bilirubin Negative (Negative); Blood Trace-intact (Negative); Clarity Clear (Clear); Glucose Negative (Negative); Ketones Negative (Negative); Leukocyte Esterase Trace (Negative); Nitrite Negative (Negative); Specific Gravity 1.025 (1.005-1.025); Urobilinogen 0.2 EU/dL (Up TO 0.2)
[2019-05-30 11:04] LABS: Epithelial Cells Moderate HPF (Negative); RBC 0-2 (0-2); WBC 0-2 HPF (0-5)
[2019-05-30 11:05] LABS: Bacteria Few HPF (Negative); C & S Indicated? No/Sq. Contamination; Crystals Negative HPF (Negative); Mucus Moderate (Negative)
[2019-05-30 11:20] LABS: Lactate 0.5 mmol/L (0.6-1.4)
[2019-05-30 11:23] LABS: Abs Immature Grans 0.02 k/cumm (0.0-0.09); Absolute Basophil Count 0.02 k/cumm (0.0-0.2); Absolute Eosinophil Count 0.07 k/cumm (0.0-0.7); Absolute Lymphocyte Count 2.74 k/cumm (1.2-3.4); Absolute Neutrophil Count 4.75 k/cumm (1.2-6.7); Basophils % 0.3; Eosinophils % 0.9; HCT 38.9 % (36.0-46.0); HGB 13.2 g/dL (12.0-15.5); Immature Grans % 0.3; Lymphocytes % 34.3; Mean Corp. HGB Concentration 33.9 g/dL (32.0-36.0); Mean Corpuscular Hemoglobin 31.1 pg (27.0-33.0); Mean Corpuscular Volume 91.7 fL (80-95); Mean Platelet Volume 9.1 fL (8.0-11.0); Neutrophils % 59.2; Platelet Count 307 x1000/uL (130-400); RBC 4.24 m/cumm (4.00-5.20); RBC Distribution Width 12.4 % (11.7-14.6)
[2019-05-30 11:34] LABS: ALT 21 U/L (14-59); AST 13 U/L (15-37); Albumin 3.5 g/dL (3.4-5.0); Alkaline Phosphatase 53 U/L (46-116); Anion Gap 9.5 mmol/L (3-11); BUN 10 mg/dL (7-18); Bilirubin, Total 0.3 mg/dL (0.2-1.0); CO2 24.5 mmol/L (21.0-32.0); CREATININE 0.73 mg/dL (0.55-1.02); Calcium 8.3 mg/dL (8.5-10.1); Chloride 109 mmol/L (98-107); Glucose 120 mg/dL (70-100); Potassium 3.6 mmol/L (3.5-5.1); Sodium 143 mmol/L (136-145)
== END 2019-05-30 12:03 | disposition home or self-care (01) ==
PROVIDERS: Emergency Provider Physician Assistant; PCP Family Medicine
DX: N10 Acute pyelonephritis (principal)
CPT/HCPCS: 36415; 80053; 81025; 99283; 81003; 81015; 83605; 85025; 87086; 87480; 87510; 87660

== ENCOUNTER 2019-07-06 14:57 | Outpatient (REF) | payer MEDICAID, SELFPAY ==
[2019-07-06 15:04] LABS: Bilirubin Negative (Negative); Blood Trace-intact (Negative); Clarity Clear (Clear); Glucose Negative (Negative); Ketones Negative (Negative); Leukocyte Esterase Negative (Negative); Nitrite Negative (Negative); Urobilinogen 0.2 EU/dL (Up TO 0.2)
[2019-07-06 15:20] LABS: Bacteria Few HPF (Negative); C & S Indicated? No; Casts Negative LPF (Negative); Crystals Negative HPF (Negative); Epithelial Cells Few HPF (Negative); Mucus Negative (Negative); RBC 0-2 (0-2); WBC 0-2 HPF (0-5)
== END 2019-07-06 15:17 ==
LOC: LBN 14:57
PROVIDERS: PCP Family Medicine; Visit Provider Nurse Practitioner Gerontology
DX: R31.29 Other microscopic hematuria (principal)
CPT/HCPCS: 81003; 81015

== ENCOUNTER 2019-07-31 19:20 | Emergency (ER) | payer MEDICAID, SELFPAY ==
[2019-07-31 19:24] VITALS: BP 146/82; PULSE 92; RESP 18; TEMP 37.1; O2SAT 98
[2019-07-31 20:23] LABS: Bilirubin Negative (Negative); Blood Trace-lysed (Negative); Clarity Clear (Clear); Glucose Negative (Negative); Ketones Trace mg/dL (Negative); Leukocyte Esterase Negative (Negative); Nitrite Negative (Negative); Specific Gravity >= 1.030 (1.005-1.025); Urobilinogen 0.2 EU/dL (Up TO 0.2)
[2019-07-31] MEDS: Normal Saline 1,000 ML 1000 ML IV (20:25)
[2019-07-31] MEDS: Ketorolac 15 MG/ML VIAL IVP (20:25)
[2019-07-31 20:33] LABS: Lactate 0.8 mmol/L (0.6-1.4)
[2019-07-31 20:34] LABS: Abs Immature Grans 0.02 k/cumm (0.0-0.09); Absolute Basophil Count 0.03 k/cumm (0.0-0.2); Absolute Eosinophil Count 0.16 k/cumm (0.0-0.7); Absolute Lymphocyte Count 4.18 k/cumm (1.2-3.4); Absolute Monocyte Count 0.71 k/cumm (0.11-0.7); Absolute Neutrophil Count 6.01 k/cumm (1.2-6.7); Basophils % 0.3; Eosinophils % 1.4; HCT 38.3 % (36.0-46.0); Immature Grans % 0.2; Lymphocytes % 37.6; Mean Corp. HGB Concentration 33.9 g/dL (32.0-36.0); Mean Corpuscular Hemoglobin 31.3 pg (27.0-33.0); Mean Corpuscular Volume 92.3 fL (80-95); Mean Platelet Volume 9.6 fL (8.0-11.0); Monocytes % 6.4; Neutrophils % 54.1; Platelet Count 319 x1000/uL (130-400); RBC 4.15 m/cumm (4.00-5.20); RBC Distribution Width 12.3 % (11.7-14.6); White Blood Cell Count 11.11 k/cumm (4.4-10.8)
--- NOTE | 2019-07-31 20:36 | ED.GENADUL_ITS ---
Discharge Plan Disposition Patient Disposition: HOME Condition: Stable Discharge Details Chief Complaint: Urinary Clinical Impression: Acute flank pain Primary Care Provider: Norma Lowe ED Provider: Teresa Cook Home Meds and New Rx's Prescriptions: No Action epinephrine 0.3 MG/0.3 ML auto-injector 0.3 mg IM PRN PRN (Reason: Anaphylaxis) RF: 0 Mirena 1 EACH intrauterine device 1 ea Intrauterine ONCE Qty: 1 RF: 0 Probiotic 1 EACH capsule 3 cap PO DAILY RF: 0 multivitamin Capsule 1 cap PO DAILY RF: 0 phenazopyridine [Pyridium] 100 mg tablet 100 mg PO TID PRN (Reason: pain) Qty: 6 RF: 0 Discharge Instructions Instructions: Flank Pain (ED) Additional Instructions: Continue previously prescribed antibiotics. Rest activities as tolerated. Drink plenty of fluids by mouth. Follow-up with your local urologist as well as primary care doctor as discussed. Your CT scan today does not reveal any obvious kidney stones or fluid retention in the kidney. You do have an incidental left ovarian cyst. Your IUD appears to be in good position. There is an umbilical hernia present on your CT. Follow-up with PCP for findings. Urine culture pending. Blood cultures pending. We will call for any abnormal results Return to the emergency room for any worsening, concerns or alarming symptoms sooner if needed Medical Decision Making This is a 34-year-old woman who presents for 1 week of urinary urgency, frequency and dysuria which escalated to right flank pain. Patient was seen at [facility] yesterday for complaints of flank pain and urinary s ymptoms. Patient has history of pyelonephritis several times in the past this felt similar. Patient was prescribed Keflex. Patient has been compliant with Keflex for the last 24 hours. Patient reports no significant relief in her right flank pain which is slightly atypicals at this time typically she would be improving. Patient reports mild persistent urgency of urination. Patient denies hematuria. Patient denies fevers. Does report chills. No obvious nausea or vomiting. Patient is concerned with bilateral shoulder and arm pain. Denies any associated neck pain with range of motion. Denies headache. Denies numbness, tingling or weakness of arms. Patient called PCP for her complaints today and they recommended evaluation in the emergency room. [id number] testing negative. Patient has right CVA tenderness on exam with no associated abdominal pain, benign abdominal exam. CT of her abdomen and pelvis was ordered to rule out kidney stone associated with possible pyelonephritis. Patient's urinalysis does reveal mild blood but no persistent indication of infection. Negative leukocyte esterase as well as negative nitrites. Urine culture pending. IV fluids ordered. Labs do revealed mild leukocytosis but no significant shift. Kidney function is normal. No transaminase elevation or elevation of lipase. Patient was provided Toradol for comfort. Reevaluation of patient reveals mild persistent flank pain and shoulder pain. Patient has no meningeal symptoms on exam. Patient is no palpable or reproducible pain with palpation of bilateral shoulders or chest on exam. Given patient's unremarkable CT as well as labs. Incidental findings on the CT were discussed with the patient specifically umbilical hernia as well as left ovarian cyst neither which have associated pain on physical exam. Likely unrelated to patient's complaints. No hydronephrosis or kidney stones noted on CT. Kidney function normal. Patient encouraged continuation of her antibiotics previously prescribed as she is only been on the antibiotics for less than 24 hours. Patient provided expectations of improvement within the next 24 hours. Return precautions were discussed. Close follow-up with her urologist encouraged. Follow-up of urine culture performed yesterday encouraged. Hydration encouraged. The patient was stable and requested discharge. Prior to discharge, my usual and customary return precautions were reviewed with the patient - this included follow-up instructions and reasons to return to the Emergency Department if conditions worsens, does not improve as expected, or other new concerns arise. HPI General Date/Time Provider Initiated Documentation: 07/31/19 19:34 . HPI Narrative: Is a 34-year-old patient who presents for concerns of persistent pyelonephritis. Patient was seen in [facility]'s emergency room yesterday for 1 week of dysuria associated with onset of flank pain on the right. Labs were obtained urinalysis obtained diagnosed with pyelonephritis treated with Keflex p.o. as well as Pyridium. Patient reports she is noting increasing chills. Persistent right flank pain. Patient reports vague malaise. No significant headache or dizziness. Patient reports achiness to her bilateral shoulders and arms. Diarrhea which preceded onset of antibiotics. Patient does have a significant history of UTI in the past. Patient reports 1 week ago she began with dysuria which she has seen urology for her several UTIs in the past and she does have a standing order for urinalysis ordered by her urologist however given the holiday and busy schedule over the holiday she drink lots of cranberry and water and is hoping to put off her urinary symptoms. After onset of persistent flank pain she is seek evaluation yesterday. After having persistent symptoms and chills spoke with PCP today who recommended she come to the ER for further evaluation. Patient reports typically after 1 day of antibiotics she is feeling improved however at this time she is not feeling improved. Related Data Home Medications Medication Instructions Recorded Confirmed epinephrine 0.3 mg IM PRN PRN 04/29/13 07/31/19 Mirena 1 ea INTRAUTERINE ONCE #1 implant 09/20/15 07/31/19 Probiotic 3 cap PO DAILY 09/27/16 07/31/19 multivitamin 1 cap PO DAILY 11/15/18 07/31/19 phenazopyridine [Pyridium] 100 mg PO TID PRN #6 tab 05/30/19 07/31/19 Previous Rx's Medication Instructions Recorded phenazopyridine [Pyridium] 100 mg PO TID PRN #6 tab 05/30/19 Allergies Allergy/AdvReac Type Severity Reaction Status Date / Time Sulfa (Sulfonamide Allergy Mild Verified 07/06/19 08:43 Antibiotics) Iodinated Contrast Media Allergy Itching Unverified 07/31/19 19:32 acetaminophen [From Vicodin] AdvReac Verified 07/31/19 19:29 hydrocodone [From Vicodin] AdvReac Verified 07/06/19 08:43 tramadol AdvReac Verified 07/06/19 08:43 apples/plums/pears/peaches/pena/raw Allergy Severe swelling/trouble Uncoded 07/06/19 08:43 potatoes/walnuts/almonds/ breathing sugarsnap Allergy Severe swelling Uncoded 07/06/19 08:43 peas/tomatoes/green peppers trouble breathing environmental Allergy Uncoded 07/06/19 08:43 General Stated Complaint: Urinary LIEN: 3 Review of Systems All systems reviewed & are unremarkable except as noted in HPI and below Constitutional Constitutional: Reports chills, Denies fever(s), Denies headache(s) and Reports malaise ENT Ears, Nose, Mouth, and Throat: Denies dizziness, Denies headache(s), Denies nasal congestion, Denies nasal discharge, Denies nasal obstruction, Denies post nasal drip, Denies sinus pain, Denies sinus pressure and Denies sore throat Respiratory Respiratory: Denies cough, Denies pain with cough and Denies wheezing Gastrointestinal Gastrointestinal: Reports abdominal pain (Which occurred several days ago and since resolved), Reports diarrhea, Denies nausea and Denies vomiting Genitourinary Genitourinary: Denies abnormal vaginal bleeding, Reports dysuria, Reports flank pain and Reports urinary urgency Neurologic Neurologic: Denies dizziness and Denies headache(s) Allergic/Immunologic Allergic/Immunologic: Denies wheezing [facility] Medical History IUD surveillance (Acute) Personal history of cervical dysplasia (Acute 02/02/14) 2002 JAUN II - LEEP Rx Social History Smoking/Tobacco Use Status: Current every day Tobacco Type: cigarettes Years smoked: 14 Alcohol Intake: current Alcohol Intake frequency: holidays/special occasions only Drug use: Never Substance use type: does not use Details: CBD gummies for sleep Do you feel safe at home: Yes Do you feel safe in your relationship?: Yes History History 3 Para 2 Hx # Term Pregnancies Multiple births Hx # Pregnancies Ectopic pregnancies AB induced Hx Number of Living Children AB spontaneous Exam Narrative Exam Narrative: CONST: Healthy appearing patient, in no acute distress. Well hydrated. Alert and alert. NECK: Normal visual inspection. FROM. No lymphadenopathy. Trachea midline. No Midline tenderness. CHEST: Normal insepection of the chest. RESP: Normal respiratory effort. Speaking full sentences. No cough. No wheezing. No retractions. Clear to auscaltation. Breath sound equal and present bilaterally. CARDIO: No JVD. Normal PMI. Regular Rate. Regular Rhythm. Normal peripheral pulses. GI: Normal inspection of abdomen. No distension. Soft. Nontender. Bowel sounds present in all 4 quadrants. No rebound. No gaurding. Back; right CVA tenderness noted. No left CVA tenderness MUSCULOSKELETAL: Normal Gait. FROM of all extremities. Distal neurovascularly intact. Sensation intact distally. SKIN: Normal. Dry. No rashes. NEURO: Alert and awake. Speech clear. Course Vital Signs Vital signs: Vital Signs Temperature 37.1 C 07/31/19 19:24 Pulse 92 H 07/31/19 19:24 Respiratory Rate 18 07/31/19 19:24 Blood Pressure 146/82 H 07/31/19 19:24 Pulse Oximetry 98 07/31/19 19:24 Temperature 37.1 C 07/31/19 19:24 Temperature Source Skin 07/31/19 19:24 Pulse 92 H 07/31/19 19:24 Respiratory Rate 18 07/31/19 19:24 Respiratory Effort 07/31/19 19:30 Blood Pressure 146/82 H 07/31/19 19:24 Blood Pressure Position Sitting 07/31/19 19:24 Pulse Oximetry 98 07/31/19 19:24 Oxygen Delivery Method Room Air 07/31/19 19:24 Oxygen Flow Rate 0 07/31/19 19:24 Pain Level 8 07/31/19 20:25 Comment 07/31/19 19:24 Lab/Test Results Lab/Test Results: 07/31/19 20:20 Blood Blood Culture - Pending 07/31/19 20:11 Urine - Clean Catch Urine Culture - Pending 07/31/19 19:55 Blood Blood Culture - Pending Laboratory Tests Range/Units 07/31/19 07/31/19 07/31/19 20:11 20:20 20:20 WBC (4.4-10.8) k/cumm 11.11 H RBC (4.00-5.20) m/cumm 4.15 Hgb (12.0-15.5) g/dL 13.0 Hct (36.0-46.0) % 38.3 MCV (80-95) fL 92.3 MCH (27.0-33.0) pg 31.3 MCHC (32.0-36.0) g/dL 33.9 RDW (11.7-14.6) % 12.3 Plt Count (130-400) x1000/uL 319 MPV (8.0-11.0) fL 9.6 Immature Gran % 0.2 Neutrophils % 54.1 Lymphocytes % 37.6 Monocytes % 6.4 Eosinophils % 1.4 Basophils % 0.3 Absolute Neutrophils (1.2-6.7) k/cumm 6.01 Absolute Lymphocytes (1.2-3.4) k/cumm 4.18 H Absolute Monocytes (0.11-0.7) k/cumm 0.71 H Absolute Eosinophils (0.0-0.7) k/cumm 0.16 Absolute Basophils (0.0-0.2) k/cumm 0.03 Lactate (0.6-1.4) mmol/L 0.8 Urine Color (Yellow) Yellow Urine Clarity (Clear) Clear Urine pH (5-8) 6.0 Ur Specific [place] (1.005-1.025) >= 1.030 H Urine Protein (Negative) mg/dL Negative Urine Ketones (Negative) mg/dL Trace H Urine Blood (Negative) Trace-lysed H Urine Nitrite (Negative) Negative Urine Bilirubin (Negative) Negative Urine Urobilinogen (Up TO 0.2) EU/dL 0.2 Ur Leukocyte Esterase (Negative) Negative Urine Glucose (Negative) mg/dL Negative
--- NOTE | 2019-07-31 20:39 | DI.CT_ITS ---
EXAM: CT ABDOMEN PELVIS WO CLINICAL HISTORY: right flank pain TECHNIQUE: Imaging Protocol: Axial computed tomography images with coronal and sagittal reformatted images were created and reviewed. COMPARISON: CT renal colic wo from 06/07/2018 FINDINGS: ABDOMEN: Lung Bases: Mild dependent atelectasis. Liver: Normal density. No measurable mass. Gallbladder and biliary tract: No radiodense calculus or dilation. Pancreas: Normal density, no abnormal calcifications or inflammatory process. Spleen: Normal. Kidneys: Normal size, contour and axis. No radiodense stones or obstructive uropathy. No masses seen. Adrenal glands: No masses seen. Lymph nodes: Within normal limits. Abdominal Aorta: Abdominal portion non-dilated. PELVIS: Bladder: Symmetric distention, no gross wall thickening. Bowel: No obstruction or bowel wall thickening. There is a surgical clip in the right lower quadrant of the abdomen. The finding is most suggestive of a prior appendectomy. Peritoneal cavity: No ascites, collection or mesenteric inflammatory response. There is a small fat c ontaining umbilical hernia. Reproductive organs: There is an intrauterine device in good position. There is a 2 centimeter left ovarian cyst. Bones: Within normal limits. IMPRESSION: 1. No evidence of an acute abdomen. 2. 2 centimeter left ovarian cyst. DATA REPOSITORY: All CT scans at this facility are submitted to the National Radiology Data Registry (NRDR) Dose Index Registry (DIR) with the [employer] ([employer]). RADIATION OPTIMIZATION: All CT scans at this facility use at least one of these dose optimization te chniques: automated exposure control; mA and/or kV adjustment per patient size (includes targeted exa ms where dose is matched to clinical indication); or iterative reconstruction.
[2019-07-31 20:41] LABS: Bacteria Few HPF (Negative); Crystals Negative HPF (Negative); Epithelial Cells Moderate HPF (Negative); Mucus Negative (Negative)
[2019-07-31 20:42] LABS: C & S Indicated? C&S Done As Ordered
[2019-07-31 20:47] LABS: ALT 24 U/L (14-59); AST 14 U/L (15-37); Albumin 3.7 g/dL (3.4-5.0); Alkaline Phosphatase 54 U/L (46-116); Anion Gap 10.1 mmol/L (3-11); BUN 14 mg/dL (7-18); Bilirubin, Total 0.3 mg/dL (0.2-1.0); CO2 25.9 mmol/L (21.0-32.0); CREATININE 0.69 mg/dL (0.55-1.02); Calcium 8.9 mg/dL (8.5-10.1); Chloride 106 mmol/L (98-107); Glucose 95 mg/dL (74-106); Lipase 185 U/L (73-393); Potassium 3.6 mmol/L (3.5-5.1); Sodium 142 mmol/L (136-145); Total Protein 7.3 g/dL (6.4-8.2)
--- NOTE | 2019-07-31 21:11 | DI.VRAD_ITS ---
PROCEDURE INFORMATION: Exam: CT Abdomen And Pelvis Without Contrast Exam date and time: 07/31/2019 8:01 PM Age: 34 years old Clinical history: Pain; Other: Right flank; Prior surgery; Surgery date: 6+ months; Surgery type: Appendectomy, , TECHNIQUE: Imaging protocol: Computed tomography of the abdomen and pelvis without contrast. Radiation optimization: All CT scans at this facility use at least one of these dose optimization techniques: automated exposure control; mA and/or kV adjustment per patient size (includes targeted exams where dose is matched to clinical indication); or iterative reconstruction. COMPARISON: CT PELVIC/LOWER ABD WITHOUT CONT 09/24/2017 9:41 PM FINDINGS: Lungs: There is minimal bibasilar atelectasis. Liver: Normal. No mass. Gallbladder and bile ducts: Normal. No calcified stones. No ductal dilation. Pancreas: Normal. No ductal dilation. Spleen: Normal. No splenomegaly. Adrenals: Normal. No mass. Kidneys and ureters: Normal. No hydronephrosis. Stomach and bowel: Unremarkable. No obstruction. No mucosal thickening. Appendix: Prior appendectomy. Intraperitoneal space: Unremarkable. No free air. No significant fluid collection. Vasculature: Unremarkable. No abdominal aortic aneurysm. Lymph nodes: Unremarkable. No enlarged lymph nodes. Bladder: Unremarkable as visualized. Reproductive: Intrauterine contraceptive device appears in satisfactory position. 2 cm left ovarian cyst Bones/joints: Unremarkable. No acute fracture. Soft tissues: There is an uncomplicated fat-containing umbilical hernia. IMPRESSION: 2 cm left ovarian cyst. Dictated and Authenticated by: Tereso Sena MD. Ordering:MO Moore MD
[2019-07-31 21:15] VITALS: BP 119/73; PULSE 75; RESP 16; TEMP 37; O2SAT 100
== END 2019-07-31 22:10 | disposition home or self-care (01) ==
PROVIDERS: Emergency Provider Physician Assistant; PCP Family Medicine
DX: M54.5 Low back pain (principal); Z87.440 Personal history of urinary (tract) infections
CPT/HCPCS: 36415; 80053; 81025; 83690; 87040; 96361; 96374; 99284; 74176; 81003; 81015; 83605; 85025; 87086; J1885

== ENCOUNTER 2019-10-10 13:28 | Outpatient (REF) | payer MEDICAID, SELFPAY | END 2019-10-10 13:48 | LOC: LBN 13:28 | PROVIDERS: PCP Family Medicine; Visit Provider Nurse Practitioner Gerontology | DX: R30.0 Dysuria (principal) | CPT/HCPCS: 87480; 87510; 87660 ==

== ENCOUNTER 2019-10-12 08:51 | Emergency (ER) | payer MEDICAID, SELFPAY ==
[2019-10-12] VITALS (26 sets, daily range): BP systolic 93–113; BP diastolic 52–67; PULSE 62–99; RESP 11–25; TEMP 36.7; O2SAT 96–99
--- NOTE | 2019-10-12 09:09 | ED.GENADUL_ITS ---
Discharge Plan Disposition Patient Disposition: AGAINST MEDICAL ADVICE Condition: Fair Discharge Details Chief Complaint: Dizzy/Sync Clinical Impression: Vertigo Primary Care Provider: Norma Lowe ED Provider: Teri Haley Home Meds and New Rx's Prescriptions: New diazepam [Valium] 5 mg tablet 5 mg PO BID PRN (Reason: vertigo) Qty: 8 RF: 0 Continued epinephrine 0.3 MG/0.3 ML auto-injector 0.3 mg IM PRN PRN (Reason: Anaphylaxis) RF: 0 Mirena 1 EACH intrauterine device 1 ea Intrauterine ONCE Qty: 1 RF: 0 isotretinoin 10 mg capsule PO RF: 0 metronidazole 500 mg tablet 500 mg PO BID Qty: 14 RF: 0 Probiotic 1 EACH capsule 3 cap PO DAILY RF: 0 multivitamin Capsule 1 cap PO DAILY RF: 0 phenazopyridine [Pyridium] 100 mg tablet 100 mg PO TID PRN (Reason: pain) Qty: 6 RF: 0 Discharge Instructions Instructions: Vertigo (ED) Additional Instructions: You have elected to leave the emergency department AGAINST MEDICAL ADVICE. As we discussed, the risks of leaving AGAINST MEDICAL ADVICE are or permanent disability. You may return to the emergency department at any time if you change your mind. Please return immediately to the emergency department if you develop any new or worsening symptoms, if your condition does not improve as expected, or if you become otherwise concerned. It is extremely important that you call soon as possible to make an appointment to be seen in follow-up for this visit by your primary care doctor and by a neurologist as we discussed. You have been prescribed Valium for your symptoms. Valium is a sedating medication and can be dangerous when not taking as directed. Please take Valium only as prescribed. Please do not make important decisions, drive, operate heavy machinery, or care for children while taking Valium. Please do not take any other sedating medications or drink alcohol while taking Valium. Stand Alone Forms: Work Release Referrals: Norma Lowe [Primary Care Provider] - Maya Gavin MD [ [facility] STAFF PHYSICIAN] - Medical Decision Making Betina Rolle is a 34-year-old woman with history of interstitial cystitis who presented to the emergency department with sudden onset vertigo and nausea last night while lying in bed, symptoms unchanged since onset. On exam patient is well and nontoxic appearing. She has a benign cardiopulmonary exam. Nonfocal neurologic exam. Patient is able to walk from the exam room to the bathroom without issue. Suspect likely peripheral vertigo however patient has parents with cardiac disease and a brother who had several strokes in his 30s, cannot rule out central vertigo at this time. Plan for EKG, meclizine, IV fluids, MRI, screening labs. Will monitor and reassess. Patient reported that IV was too painful and asked for to be removed. She is drinking water without issue. Patient states that she does not want to have another IV placed at this time. Plan for MRI brain without contrast. Patient reports minimal relief of her symptoms after meclizine. We will continue to monitor. Labs reviewed. No leukocytosis, normal INR. Urine preg negative per nursing. MRI scheduled for 12:30 PM. At approximately 12:20 PM, patient stated that she received a call from her daughter school stating that her daughter was vomiting and that she needed to leave and pick her up. Patient is accompanied by her mother who will drive her to the school. I had a lengthy discussion with the patient regarding risks of leaving AGAINST MEDICAL ADVICE, including or permanent disability. Patient verbalized understanding of the risks and continue to refuse to stay for recommended evaluation and treatment. Patient has decision-making capacity and capacity for informed refusal. I had a lengthy discussion with the patient regarding alternative plan including outpatient follow-up with neurology, p.oAbel Marshall for symptoms, that she may return to the emergency department at any point to complete evaluation if she changes her mind. I had a lengthy discussion with Patient regarding return to emergency department precautions, home care, and importance of outpatient follow-up. Pt verbalizes understanding of the plan and is amenable. Patient discharged to home with clear plan for outpatient follow-up. All questions were answered. Disposition decision was made weighing the risks and benefits of hospitalization versus outpatient treatment, the risk for further decompensation, and the patient's wishes. Medical Records Medical records reviewed: Yes I reviewed the patient's medical records. Lab Data Lab results reviewed: Yes I reviewed the patient's lab results. Labs: Laboratory Tests Range/Units 10/12/19 10/12/19 10/12/19 09:20 11:07 11:07 WBC (4.4-10.8) k/cumm 9.22 RBC (4.00-5.20) m/cumm 4.13 Hgb (12.0-15.5) g/dL 13.0 Hct (36.0-46.0) % 38.2 MCV (80-95) fL 92.5 MCH (27.0-33.0) pg 31.5 MCHC (32.0-36.0) g/dL 34.0 RDW (11.7-14.6) % 12.5 Plt Count (130-400) x1000/uL 310 MPV (8.0-11.0) fL 9.3 Immature Gran % % 0.2 Neutrophils % 61.6 Lymphocytes % 30.8 Monocytes % 6.2 Eosinophils % 1.0 Basophils % 0.2 Absolute Neutrophils (1.2-6.7) k/cumm 5.68 Absolute Lymphocytes (1.2-3.4) k/cumm 2.84 Absolute Monocytes (0.11-0.7) k/cumm 0.57 Absolute Eosinophils (0.0-0.7) k/cumm 0.09 Absolute Basophils (0.0-0.2) k/cumm 0.02 PT (9.3-11.0) sec INR (0.9-1.1) Sodium (136-145) mmol/L 140 Potassium (3.5-5.1) mmol/L 4.2 Chloride (98-107) mmol/L 105 Carbon Dioxide (21.0-32.0) mmol/L 26.2 Anion Gap (3-11) mmol/L 8.8 BUN (7-18) mg/dL 13 Creatinine (0.55-1.02) mg/dL 0.58 Estimated GFR/1.73 m2 (mL/min/1.73m2) >= 60.00 Glucose (74-106) mg/dL 96 Calcium (8.5-10.1) mg/dL 8.5 Total Bilirubin (0.2-1.0) mg/dL 0.4 AST (15-37) U/L 17 ALT (14-59) U/L 28 Alkaline Phosphatase (46-116) U/L 55 Total Protein (6.4-8.2) g/dL 7.0 Albumin (3.4-5.0) g/dL 3.4 Urine Color (Yellow) Yellow Urine Clarity (Clear) Sl cloudy Urine pH (5-8) 7.5 Ur Specific [place] (1.005-1.025) 1.020 Urine Protein (Negative) mg/dL Negative Urine Ketones (Negative) mg/dL Negative Urine Blood (Negative) Trace-intact H Urine Nitrite (Negative) Negative Urine Bilirubin (Negative) Negative Urine Urobilinogen (Up TO 0.2) EU/dL 0.2 Ur Leukocyte Esterase (Negative) Negative Urine RBC (0-2) HPF 0-2 Urine WBC (0-5) HPF 0-2 Ur Epithelial Cells (Negative) HPF Few Urine Crystals (Negative) HPF Negative Urine Bacteria (Negative) HPF Few Urine Casts (Negative) LPF Negative Urine Mucus (Negative) Trace Ur Culture Indicated? No Urine Glucose (Negative) mg/dL Negative Range/Units 10/12/19 11:07 WBC (4.4-10.8) k/cumm RBC (4.00-5.20) m/cumm Hgb (12.0-15.5) g/dL Hct (36.0-46.0) % MCV (80-95) fL MCH (27.0-33.0) pg MCHC (32.0-36.0) g/dL RDW (11.7-14.6) % Plt Count (130-400) x1000/uL MPV (8.0-11.0) fL Immature Gran % % Neutrophils % Lymphocytes % Monocytes % Eosinophils % Basophils % Absolute Neutrophils (1.2-6.7) k/cumm Absolute Lymphocytes (1.2-3.4) k/cumm Absolute Monocytes (0.11-0.7) k/cumm Absolute Eosinophils (0.0-0.7) k/cumm Absolute Basophils (0.0-0.2) k/cumm PT (9.3-11.0) sec 10.0 INR (0.9-1.1) 1.0 Sodium (136-145) mmol/L Potassium (3.5-5.1) mmol/L Chloride (98-107) mmol/L Carbon Dioxide (21.0-32.0) mmol/L Anion Gap (3-11) mmol/L BUN (7-18) mg/dL Creatinine (0.55-1.02) mg/dL Estimated GFR/1.73 m2 (mL/min/1.73m2) Glucose (74-106) mg/dL Calcium (8.5-10.1) mg/dL Total Bilirubin (0.2-1.0) mg/dL AST (15-37) U/L ALT (14-59) U/L Alkaline Phosphatase (46-116) U/L Total Protein (6.4-8.2) g/dL Albumin (3.4-5.0) g/dL Urine Color (Yellow) Urine Clarity (Clear) Urine pH (5-8) Ur Specific [place] (1.005-1.025) Urine Protein (Negative) mg/dL Urine Ketones (Negative) mg/dL Urine Blood (Negative) Urine Nitrite (Negative) Urine Bilirubin (Negative) Urine Urobilinogen (Up TO 0.2) EU/dL Ur Leukocyte Esterase (Negative) Urine RBC (0-2) HPF Urine WBC (0-5) HPF Ur Epithelial Cells (Negative) HPF Urine Crystals (Negative) HPF Urine Bacteria (Negative) HPF Urine Casts (Negative) LPF Urine Mucus (Negative) Ur Culture Indicated? Urine Glucose (Negative) mg/dL HPI General Mode of arrival: ambulatory . Date/Time Provider Initiated Documentation: 10/12/19 09:06 . Limitations to Documentation: no limitations . Information obtained by: patient, RN notes reviewed and old records reviewed . HPI Narrative: Betina Rolle is a 34 y/o woman with a history of interstitial cystitis presenting to the emergency department with vertigo. Patient reports that she has had vertigo several times in the past, however last episode was 1 to 2 years ago. Patient reports that last night she developed vertigo while lying in bed. Patient reports that she had sudden onset of severe spinning sensation accompanied by nausea. Patient reports that symptoms have been unchanged since onset last night. Patient reports that this episode seems more severe than episodes of vertigo she has had in the past. Patient reports that she has chronic sensation of needing to pop her right ear in addition to intermittent ringing in her right ear that has been ongoing for months and is unchanged, no current ringing in her ear. She denies ear pain or any other pain, denies fevers, vomiting, diarrhea, rash, shortness of breath, cough, numbness, weakness, changes in her speech. Was previously in her usual state of health, no recent illness. Patient has not taken any medication at home for her symptoms. Patient reports that she takes Accutane, and took Flagyl for vaginal infection approximately 1.5 hours prior to onset of symptoms last night. Related Data Home Medications Medication Instructions Recorded Confirmed epinephrine 0.3 mg IM PRN PRN 04/29/13 10/12/19 Mirena 1 ea INTRAUTERINE ONCE #1 implant 09/20/15 10/12/19 Probiotic 3 cap PO DAILY 09/27/16 10/12/19 multivitamin 1 cap PO DAILY 11/15/18 10/12/19 phenazopyridine [Pyridium] 100 mg PO TID PRN #6 tab 05/30/19 10/12/19 isotretinoin 10 mg capsule PO 10/06/19 metronidazole 500 mg tablet 500 mg PO BID #14 tab 10/11/19 10/12/19 diazepam [Valium] 5 mg PO BID PRN #8 tab 10/12/19 Previous Rx's Medication Instructions Recorded phenazopyridine [Pyridium] 100 mg PO TID PRN #6 tab 05/30/19 metronidazole 500 mg tablet 500 mg PO BID #14 tab 10/11/19 diazepam [Valium] 5 mg PO BID PRN #8 tab 10/12/19 Allergies Allergy/AdvReac Type Severity Reaction Status Date / Time Sulfa (Sulfonamide Allergy Mild Verified 10/12/19 09:03 Antibiotics) Iodinated Contrast Media Allergy Itching Unverified 10/12/19 09:03 acetaminophen [From Vicodin] AdvReac Verified 10/12/19 09:03 hydrocodone [From Vicodin] AdvReac Verified 10/12/19 09:03 tramadol AdvReac Verified 10/12/19 09:03 apples/plums/pears/peaches/pena/raw Allergy Severe swelling/trouble Uncoded 10/12/19 09:03 potatoes/walnuts/almonds/ breathing sugarsnap Allergy Severe swelling Uncoded 10/12/19 09:03 peas/tomatoes/green peppers trouble breathing environmental Allergy Uncoded 10/12/19 09:03 General Stated Complaint: Dizzy/Sync LIEN: 3 Review of Systems Narrative: Constitutional: denies fevers Eyes: denies eye pain ENT: denies ear pain, dental pain, sore throat, ear pain, hearing loss, reports chronic fullness in right ear, intermittent ringing in right ear that is not currently occurring Cardiovascular: denies chest pain Respiratory: denies SOB, cough GI: denies abdominal pain, vomiting, diarrhea : denies flank pain MSK: denies back pain, neck pain, arthralgias, myalgias Skin: denies rash, itching Neuro: denies headaches, numbness, weakness, reports vertigo PFSH Social History Smoking/Tobacco Use Status: Current every day Tobacco Type: cigarettes Smoking packs per day: 0.5 Smoking cigarettes per day: 10.0 Years smoked: 14 Smoking pack-years: 7.00 Alcohol Intake: current Alcohol Intake frequency: holidays/special occasions only Drug use: Never Substance use type: does not use Details: CBD gummies for sleep Current gender identity: female Do you feel safe at home: Yes Do you feel safe in your relationship?: Yes History History 3 Para 2 Hx # Term Pregnancies Multiple births Hx # Pregnancies Ectopic pregnancies AB induced Hx Number of Living Children AB spontaneous Exam Narrative Exam Narrative: Constitutional: well and [id number]-ljmooliow, pleasant, conversing normally HENT: head atraumatic/normocephalic/normal inspection, mucous membranes moist, oropharynx without erythema/edema/exudate, no intraoral lesion Eyes: conjunctiva normal, sclera normal, pupils 3mm b/l equal round reactive to light and accommodation, extraocular movements intact without nystagmus Neck: no stridor, normal ROM, trachea midline Chest: normal inspection Resp: normal work of breathing, LCTAB Cardio: normal rate, normal rhythm, no murmur appreciated GI: abdomen soft, non-tender, non-distended Back: normal inspection, no rash Skin: warm, dry, normal color, no rash Neuro: alert, not altered, cranial nerves II through XII intact, motor 5 out of 5 throughout, normal gait, normal tone Ext: no edema, no posterior calf tenderness to palpation Psych: normal mood, normal affect, normal behavior ,, Course Vital Signs Vital signs: Vital Signs Temperature 36.7 C 10/12/19 08:59 Pulse 81 10/12/19 08:59 Respiratory Rate 16 10/12/19 08:59 Blood Pressure 113/66 10/12/19 08:59 Pulse Oximetry 98 10/12/19 08:59 Temperature 36.7 C 10/12/19 08:59 Temperature Source Skin 10/12/19 08:59 Pulse 81 10/12/19 08:59 Respiratory Rate 16 10/12/19 08:59 Respiratory Effort Non-Labored 10/12/19 08:59 Blood Pressure 113/66 10/12/19 08:59 Pulse Oximetry 98 10/12/19 08:59 Pain Level 0 10/12/19 08:59
[2019-10-12 09:25] LABS: Bilirubin Negative (Negative); Blood Trace-intact (Negative); Clarity Sl Cloudy (Clear); Glucose Negative (Negative); Ketones Negative (Negative); Leukocyte Esterase Negative (Negative); Nitrite Negative (Negative); Urobilinogen 0.2 EU/dL (Up TO 0.2); pH 7.5 (5-8)
[2019-10-12 09:43] LABS: Bacteria Few HPF (Negative); C & S Indicated? No; Casts Negative LPF (Negative); Crystals Negative HPF (Negative); Epithelial Cells Few HPF (Negative); Mucus Trace (Negative); RBC 0-2 HPF (0-2); WBC 0-2 HPF (0-5)
[2019-10-12] MEDS: Meclizine 25 MG TAB PO (10:22)
[2019-10-12] MEDS: Ondansetron O.D.T. 4 MG TABEF PO (11:01)
[2019-10-12 11:15] LABS: Abs Immature Grans 0.02 k/cumm (0.0-0.09); Absolute Basophil Count 0.02 k/cumm (0.0-0.2); Absolute Eosinophil Count 0.09 k/cumm (0.0-0.7); Absolute Lymphocyte Count 2.84 k/cumm (1.2-3.4); Absolute Monocyte Count 0.57 k/cumm (0.11-0.7); Absolute Neutrophil Count 5.68 k/cumm (1.2-6.7); Basophils % 0.2; HCT 38.2 % (36.0-46.0); Immature Grans % 0.2 %; Lymphocytes % 30.8; Mean Corpuscular Hemoglobin 31.5 pg (27.0-33.0); Mean Corpuscular Volume 92.5 fL (80-95); Mean Platelet Volume 9.3 fL (8.0-11.0); Monocytes % 6.2; Neutrophils % 61.6; Platelet Count 310 x1000/uL (130-400); RBC 4.13 m/cumm (4.00-5.20); RBC Distribution Width 12.5 % (11.7-14.6); White Blood Cell Count 9.22 k/cumm (4.4-10.8)
[2019-10-12 11:29] LABS: ALT 28 U/L (14-59); AST 17 U/L (15-37); Albumin 3.4 g/dL (3.4-5.0); Alkaline Phosphatase 55 U/L (46-116); Anion Gap 8.8 mmol/L (3-11); BUN 13 mg/dL (7-18); Bilirubin, Total 0.4 mg/dL (0.2-1.0); CO2 26.2 mmol/L (21.0-32.0); CREATININE 0.58 mg/dL (0.55-1.02); Calcium 8.5 mg/dL (8.5-10.1); Chloride 105 mmol/L (98-107); Glucose 96 mg/dL (74-106); Potassium 4.2 mmol/L (3.5-5.1); Sodium 140 mmol/L (136-145)
== END 2019-10-12 12:39 | disposition left against medical advice (07) ==
PROVIDERS: Emergency Provider Student in an Organized Health Care Education/Training Program; PCP Family Medicine
DX: R42 Dizziness and giddiness (principal); R11.0 Nausea; Z53.29 Procedure and treatment not carried out because of patient's decision for other reasons
CPT/HCPCS: 36415; 80053; 81025; 93005; 99285; 81003; 81015; 85025; 85610; 93010

== ENCOUNTER 2019-11-18 14:37 | Outpatient (CLI) | payer MEDICAID, SELFPAY | END 2019-11-18 14:57 | PROVIDERS: PCP Family Medicine; Visit Provider Urology | DX: R30.0 Dysuria (principal) | CPT/HCPCS: 87086 ==

== ENCOUNTER 2020-03-28 10:21 | Emergency (ER) | payer MEDICAID, SELFPAY ==
[2020-03-28 10:33] VITALS: BP 128/76; PULSE 79; RESP 18; TEMP 36.8; O2SAT 99
--- NOTE | 2020-03-28 10:56 | ED.GENADUL_ITS ---
Discharge Plan Disposition Patient Disposition: HOME Condition: Stable Discharge Details Chief Complaint: Sorethroat Clinical Impression: Pharyngitis Primary Care Provider: Norma Lowe ED Provider: Teri Haley Home Meds and New Rx's Prescriptions: New penicillin V potassium 500 mg tablet 500 mg PO BID Qty: 20 RF: 0 Continued epinephrine 0.3 MG/0.3 ML auto-injector 0.3 mg IM PRN PRN (Reason: Anaphylaxis) RF: 0 Mirena 1 EACH intrauterine device 1 ea Intrauterine ONCE Qty: 1 RF: 0 Probiotic 1 EACH capsule 3 cap PO DAILY RF: 0 multivitamin Capsule 1 cap PO DAILY RF: 0 Discharge Instructions Instructions: Pharyngitis (ED) Additional Instructions: Please return immediately to the emergency department if you develop any new or worsening symptoms, if your condition does not improve as expected, or if you become otherwise concerned. It is extremely important that you call soon as possible to make an appointment to be seen in follow-up for this visit by your primary care doctor. Your rapid strep test was negative today, but was sent for culture. Please begin taking the prescribed antibiotics if you are called with a positive culture result. Stand Alone Forms: Work Release Referrals: Norma Lowe [Primary Care Provider] - Discharge Data Discharge Date/Time-TO BE ENTERED AT DEPARTURE: 03/28/20 13:00 Medical Decision Making Betina Rolle is a 34-year-old woman without history of major medical problems presenting to the emergency department with 1 week of sore throat, intermittent fevers, intermittent headache with patient concerned she has strep throat as she has had all of these symptoms multiple times in the past when she has been diagnosed with strep throat. On exam patient is very well and nontoxic- appearing. Mild erythema of the posterior pharynx, +1 edema of tonsils bilaterally with mild erythema, no exudate. No other intraoral lesion, uvula midline, handling secretions without issue. Full range of motion of neck, painless, no lymphadenopathy. Concern for strep throat versus mono versus COVID versus other. Exam/history is not consistent with sepsis, peritonsillar absces s, retropharyngeal abscess, epiglottitis, Walter's angina, impending airway compromise. Plan for rapid strep test, mono. Patient states that she refuses COVID testing at this time. I had a lengthy discussion with patient regarding COVID testing, patient verbalizes understanding of risks of not getting tested, continues to decline testing. mono, strep negative. abx rx written, discussed with Pt plan to hold abx unless strep cx results as positive. I had a lengthy discussion with Patient regarding return to emergency department precautions, home care, and importance of outpatient follow-up. Pt verbalizes understanding of the plan and is amenable. Patient discharged to home with clear plan for outpatient follow-up. All questions were answered. Disposition decision was made weighing the risks and benefits of hospitalization versus outpatient treatment, the risk for further decompensation, and the patient's wishes. Medical Records Medical records reviewed: Yes I reviewed the patient's medical records. Lab Data Lab results reviewed: Yes I reviewed the patient's lab results. Labs: 03/28/20 11:03 Tonsil - Not Specified Streptococcus Screen (JONATHAN) - Final Laboratory Tests Range/Units 03/28/20 11:57 Monoscreen (Negative) Negative HPI General Mode of arrival: ambulatory . Date/Time Provider Initiated Documentation: 03/28/20 10:55 . Limitations to Documentation: no limitations . Information obtained by: patient, RN notes reviewed and old records reviewed . HPI Narrative: Betina Rolle is a 34-year-old woman without history of major medical problems presenting to the emergency department with fever and sore throat. Patient reports that for the past 7 days she has had intermittent fever, sore throat, and intermittent headache with temp up to 101.6 at times. Patient states that she does not have a fever every day. Patient reports that her daughter has been sick with similar symptoms, and had COVID testing 1 week ago that was negative, strep test that was negative. 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 She denies cough, any other pain, vomiting, rash. Patient reports that she has been eating and drinking as usual, going about her daily activities as usual. Patient states that she has had strep throat multiple times in the past with exactly similar symptoms. Related Data Home Medications Medication Instructions Recorded Confirmed epinephrine 0.3 mg IM PRN PRN 04/29/13 03/28/20 Mirena 1 ea INTRAUTERINE ONCE #1 implant 09/20/15 03/28/20 Probiotic 3 cap PO DAILY 09/27/16 03/28/20 multivitamin 1 cap PO DAILY 11/15/18 03/28/20 penicillin V potassium 500 mg PO BID #20 tab 03/28/20 Previous Rx's Medication Instructions Recorded penicillin V potassium 500 mg PO BID #20 tab 03/28/20 Allergies Allergy/AdvReac Type Severity Reaction Status Date / Time Sulfa (Sulfonamide Allergy Mild Verified 03/28/20 10:41 Antibiotics) Iodinated Contrast Media Allergy Itching Unverified 03/28/20 10:41 acetaminophen [From Vicodin] AdvReac Verified 03/28/20 10:41 hydrocodone [From Vicodin] AdvReac Verified 03/28/20 10:41 tramadol AdvReac Verified 03/28/20 10:41 apples/plums/pears/peaches/pena/raw Allergy Severe swelling/trouble Uncoded 03/28/20 10:41 potatoes/walnuts/almonds/ breathing sugarsnap Allergy Severe swelling Uncoded 03/28/20 10:41 peas/tomatoes/green peppers trouble breathing environmental Allergy Uncoded 03/28/20 10:41 General Stated Complaint: Sorethroat LIEN: 3 Review of Systems Narrative: Constitutional: Reports fevers Eyes: denies eye pain ENT: denies ear pain, dental pain, reports sore throat Cardiovascular: denies chest pain Respiratory: denies SOB, cough GI: denies abdominal pain, vomiting, reports mild intermittent diarrhea : denies flank pain MSK: denies back pain, neck pain, arthralgias, myalgias Skin: denies rash Neuro: denies numbness, weakness, reports intermittent mild headache PFSH Medical History IUD surveillance (Acute) Personal history of cervical dysplasia (Acute 02/02/14) 2002 JAUN II - LEEP Rx Surgical History Appendectomy section X 2 Diagnostic Laproscopy Family History Mother Cervical cancer Maternal Aunt Breast cancer Social History Smoking/Tobacco Use Status: Current every day Tobacco Type: cigarettes Smoking packs per day: 0.5 Smoking cigarettes per day: 10.0 Years smoked: 14 Smoking pack-years: 7.00 Alcohol Intake: current Alcohol Intake frequency: holidays/special occasions only Drug use: Never Substance use type: does not use Details: CBD gummies for sleep Current gender identity: female Do you feel safe at home: Yes Do you feel safe in your relationship?: Yes History History 3 Para 2 Hx # Term Pregnancies Multiple births Hx # Pregnancies Ectopic pregnancies AB induced Hx Number of Living Children AB spontaneous Exam Narrative Exam Narrative: Constitutional: well and nhn-lrdyb-wuwjkmicm, pleasant, conversing normally HENT: head atraumatic/normocephalic/normal inspection, mucous membranes moist, mild erythema of the posterior pharynx, 1+edema tonsils b/l without erythema or exudate, uvula midline, no tongue elevation, normal voice, handling secretions without issue, no other intra-oral lesion or abnormality Eyes: conjunctiva normal, sclera normal, pupils 3mm b/l Neck: no stridor, full painless ROM, no lymphadenopathy, trachea midline Chest: normal inspection Resp: normal work of breathing Cardio: normal rate, normal rhythm Skin: warm, dry, normal color, no rash Neuro: alert, not altered, grossly non-focal, normal tone Ext: moving all extremities equally Psych: normal mood, normal affect, normal behavior Course Vital Signs Vital signs: Vital Signs Temperature 36.8 C 03/28/20 10:33 Pulse 79 03/28/20 10:33 Respiratory Rate 18 03/28/20 10:33 Blood Pressure 128/76 03/28/20 10:33 Pulse Oximetry 99 03/28/20 10:33 Temperature 36.8 C 03/28/20 10:33 Temperature Source Temporal Artery Scan 03/28/20 10:33 Pulse 79 03/28/20 10:33 Respiratory Rate 18 03/28/20 10:33 Respiratory Effort Non-Labored 03/28/20 10:40 Blood Pressure 128/76 03/28/20 10:33 Blood Pressure Position Supine 03/28/20 10:33 Pulse Oximetry 99 03/28/20 10:33 Oxygen Delivery Method Room Air 03/28/20 10:33 Oxygen Flow Rate 0 03/28/20 10:33 Pain Level 5 03/28/20 10:33
[2020-03-28 12:10] LABS: Mono Screening Negative (Negative)
== END 2020-03-28 13:00 | disposition home or self-care (01) ==
PROVIDERS: Emergency Provider Student in an Organized Health Care Education/Training Program; PCP Family Medicine
DX: J02.9 Acute pharyngitis, unspecified (principal); R50.9 Fever, unspecified; R51 Headache; F17.210 Nicotine dependence, cigarettes, uncomplicated
CPT/HCPCS: 87880; 99282; 86308; 87081

== ENCOUNTER 2020-05-15 13:04 | Outpatient (REF) | payer MEDICAID, SELFPAY | END 2020-05-15 13:24 | LOC: LBN 13:04 | PROVIDERS: PCP Family Medicine; Visit Provider Nurse Practitioner Gerontology | DX: R30.0 Dysuria (principal) | CPT/HCPCS: 87480; 87510; 87660 ==

== ENCOUNTER 2020-07-16 17:00 | Outpatient (REF) | payer MEDICAID, SELFPAY ==
[2020-07-19 04:05] LABS: Patient Race White; SARS-CoV-2 RNA Undetected (Undetected); SARS-CoV-2 Specimen Source Nasal
== END 2020-07-16 17:20 ==
LOC: NCHCN 17:00
PROVIDERS: PCP Family Medicine; Visit Provider Nurse Practitioner Family
DX: Z20.828 Contact with and (suspected) exposure to other viral communicable diseases (principal)
CPT/HCPCS: U0003

== ENCOUNTER 2020-11-15 15:59 | Outpatient (REF) | payer MEDICAID, SELFPAY ==
--- NOTE | 2020-11-15 14:45 | PAPFT_PTH ---
PATIENT: Betina Rolle LOC: N U#:[id number] AGE/SX: 35/F ROOM: RE11/15/[address]: MARCY Gtz : 1985 BED: DIS: 11/15/2020 SPEC #: [id number] RECD: 11/15/20 17:32 STATUS: GEMA REJayden #: [id number] JAYSON: 11/15/20 14:[address]: Hilda Davila DEPT: [facility] Cytology RECD BY: Elaina Hudson ENTERED: 11/15/20 17:32 SP TYPE: PAPFT OTHR DR: Norma Lowe Tissues: 1 - CX/ENDOCX FOR PAP SMEARS Procedures: PAP THIN PREP/UVM Screening HPV DNA PROBE Comments: [id number]
== END 2020-11-15 16:00 | disposition home or self-care (01) ==
LOC: LBN 15:59
PROVIDERS: PCP Family Medicine; Visit Provider Nurse Practitioner Family
DX: Z12.4 Encounter for screening for malignant neoplasm of cervix (principal); Z11.51 Encounter for screening for human papillomavirus (HPV); Z87.410 Personal history of cervical dysplasia
CPT/HCPCS: 88142; 87624

== ENCOUNTER 2020-11-30 03:59 | Outpatient (CLI) | payer MEDICAID, SELFPAY ==
--- NOTE | 2020-11-30 06:45 | DI.US_ITS ---
EXAM: US PELVIS CLINICAL HISTORY: abnormal bleeding with IUD,N93.9 TECHNIQUE: Ultrasound performed using standard protocol. COMPARISON: US US soft tissue head or neck from 11/02/2018 FINDINGS: This examination was performed transabdominally only at the patient's request. There is an IUD in th e endometrial cavity which appears to be in appropriate position. Uterus measures 9.9 x 4.5 x 5.7 cm with unremarkable appearance of the myometrium. The ovaries have a grossly normal follicular appearance as seen by transabdominal scanning, right ova ry measures 36 x 16 x 19 millimeters and left ovary measures 25 x 19 x 19 millimeters. There is normal vascular flow to the ovaries on Doppler evaluation. No free fluid in the pelvis. Limited scanning of the kidneys is unremarkable. IMPRESSION: Negative pelvic ultrasound, transabdominal scanning only. If there is a high clinical suspicion of p athology additional evaluation with transvaginal scanning may be considered. DATA REPOSITORY:
== END 2020-11-30 04:19 ==
PROVIDERS: PCP Family Medicine; Visit Provider Nurse Practitioner Family
DX: N93.9 Abnormal uterine and vaginal bleeding, unspecified (principal); Z97.5 Presence of (intrauterine) contraceptive device
CPT/HCPCS: 76856

== ENCOUNTER 2021-01-11 10:56 | Outpatient (CLI) | payer MEDICAID, SELFPAY ==
[2021-01-12 14:15] LABS: COVID-19 RT-PCR UVMMC Result Negative (Negative)
== END 2021-01-11 10:57 | disposition home or self-care (01) ==
PROVIDERS: PCP Family Medicine; Visit Provider Family Medicine
DX: Z20.822 Contact with and (suspected) exposure to COVID-19 (principal)
CPT/HCPCS: U0003

== ENCOUNTER 2021-02-05 09:13 | Outpatient (REF) | payer MEDICAID, SELFPAY | END 2021-02-05 09:14 | disposition home or self-care (01) | LOC: LBN 09:13 | PROVIDERS: PCP Family Medicine; Visit Provider Nurse Practitioner Gerontology | DX: R30.0 Dysuria (principal) | CPT/HCPCS: 87077; 87086; 87186 ==

== ENCOUNTER 2021-06-20 15:17 | Outpatient (REF) | payer MEDICAID, SELFPAY | END 2021-06-20 15:18 | disposition home or self-care (01) | LOC: NCHCN 15:17 | PROVIDERS: PCP Family Medicine; Visit Provider Family Medicine | DX: R30.0 Dysuria (principal); Z87.440 Personal history of urinary (tract) infections | CPT/HCPCS: 87077; 87086; 87186 ==

== ENCOUNTER 2021-06-25 15:47 | Outpatient (REF) | payer MEDICAID, SELFPAY ==
[2021-06-25 16:48] LABS: Source Nasal/Nares
[2021-06-25 18:50] LABS: COVID-19 PCR Negative (Negative)
== END 2021-06-25 15:48 | disposition home or self-care (01) ==
LOC: LBO 15:47
PROVIDERS: PCP Family Medicine; Visit Provider Nurse Practitioner Family
DX: Z20.822 Contact with and (suspected) exposure to COVID-19 (principal)
CPT/HCPCS: 87635

== ENCOUNTER 2021-07-30 16:02 | Outpatient (REF) | payer MEDICAID, SELFPAY | END 2021-07-30 16:03 | disposition home or self-care (01) | LOC: LBN 16:02 | PROVIDERS: PCP Family Medicine; Visit Provider Advanced Practice Midwife | DX: R30.0 Dysuria (principal); R35.0 Frequency of micturition | CPT/HCPCS: 87086 ==

== ENCOUNTER 2021-08-02 03:08 | Outpatient (CLI) | payer MEDICAID, SELFPAY ==
[2021-08-02 11:51] LABS: Kit/Specimen SENT
[2021-08-02 12:22] LABS: Abs Immature Grans 0.06 10^3/uL (0.0-0.06); Absolute Basophil Count 0.02 10^3/uL (0.0-0.2); Absolute Eosinophil Count 0.08 10^3/uL (0.0-0.7); Absolute Lymphocyte Count 1.96 10^3/uL (1.2-3.4); Absolute Monocyte Count 0.51 10^3/uL (0.1-0.8); Basophils % 0.2; Eosinophils % 0.9; HCT 34.6 % (36.0-46.0); HGB 11.4 g/dL (11.2-15.7); Immature Grans % 0.7; Lymphocytes % 21.5; MCH 30.5 pg (27.0-33.0); MCHC 32.9 % (32.0-36.0); MCV 92.5 fL (80-95); MPV 9.6 fL (8.0-11.0); Monocytes % 5.6; Neutrophils % 71.1; Nucleated RBC 0 %; Platelet Count 284 10^3/uL (130-400); RBC 3.74 10^6/uL (3.93-5.22); RDW 12.1 % (11.7-14.6); RDW-SD 41.2 fL; WBC 9.13 10^3/uL (4.4-10.8)
[2021-08-02 17:24] LABS: *AMPHETAMINES SCREEN URINE Negative (Negative); *BARBITURATES SCREEN URINE Negative (Negative); *BENZODIAZEPINES SCREEN URINE Negative (Negative); Cannabinoids THC Negative (Negative); Cocaine Screen,Urine Negative (Negative); METHADONE URINE SCREEN Negative (Negative); OPIATES URINE SCREEN Negative (Negative)
[2021-08-02 17:35] LABS: Tricyclic Antidepressants Negative (Negative)
[2021-08-05 10:18] LABS: Varicella IgG Antibody Positive (See Note)
[2021-08-05 10:23] LABS: Rubella IgG Ab (UVM) Positive (See Note)
[2021-08-05 10:59] LABS: Hepatitis B Surface Ag Negative (Negative)
[2021-08-05 11:14] LABS: Hepatitis C Ab w Rflx HCV PCR Negative (Negative)
[2021-08-05 11:23] LABS: HIV-1/2 Ag & Ab Screen Negative (Negative)
[2021-08-05 14:34] LABS: Chlamydia Result Negative (Negative); GC Result Negative (Negative)
[2021-08-06 10:51] LABS: Syphilis Total Ab w/Reflex Nonreactive (Nonreactive)
[2021-08-08 11:44] LABS: Buprenorphine Negative ng/mL (Cutoff: 5.0); Norbuprenorphine Negative ng/mL (Cutoff: 2.5)
== END 2021-08-02 03:09 | disposition home or self-care (01) ==
LOC: LBO 03:08 → LBN 13:57
PROVIDERS: PCP Family Medicine; Visit Provider Advanced Practice Midwife
DX: Z34.91 Encounter for supervision of normal pregnancy, unspecified, first trimester (principal)
CPT/HCPCS: 36415; 80307; 86787; 86803; 86850; 86900; 86901; 87340; 87389; 87491; 87591; 85025; 86762; 86780; 87480; 87510; 87660

== ENCOUNTER 2021-08-29 03:08 | Outpatient (CLI) | payer MEDICAID, SELFPAY ==
[2021-08-29 12:00] LABS: Glucose,1 Hr (Glucola) 103 mg/dL (80-140)
== END 2021-08-29 03:09 | disposition home or self-care (01) ==
LOC: LBO 03:08
PROVIDERS: Advanced Practice Midwife; PCP Family Medicine; Visit Provider Advanced Practice Midwife
DX: Z34.92 Encounter for supervision of normal pregnancy, unspecified, second trimester (principal); Z3A.17 17 weeks gestation of pregnancy
CPT/HCPCS: 36415; 82950

== ENCOUNTER 2021-09-16 00:51 | Outpatient (CLI) | payer MEDICAID, SELFPAY ==
--- NOTE | 2021-09-16 06:45 | DI.US_ITS ---
Exam(s) US OB 2-3 TRIMESTER EXAM: US OB 2-3 TRIMESTER CLINICAL HISTORY: anatomy,z34.92. TECHNIQUE: Transabdominal obstetrical ultrasound performed. COMPARISON: No exams were available for comparison FINDINGS: Transabdominal obstetrical ultrasound performed. FINDINGS: Number of fetuses: One. position: Breech Placental grade: 1 Placental location: Posterior. No evidence of previa. BIOMETRIC DATA: BPD: 42 millimeters, 18+ 4 weeks HC: 163 millimeters, 19+ 1 weeks AC: 137 millimeters, 19+ 1 weeks FL: 31 millimeters, 19+ 4 weeks Cisterna Magna: 2.9 millimeters Cerebellum: 1.96 cm EFW: 284 grms 30% Composite Age: 19+ 1 weeks, within the expected range. EDC by US: 09 February 2022 Heart Rate: 144BPM Amniotic fluid: Amount of fluid is visually within normal limits. ANATOMICAL SURVEY: Four-chambered heart: Unremarkable. LVOT: Unremarkable. RVOT: Unremarkable. Left-sided stomach: Unremarkable. urinary bladder: Unremarkable. Bilateral kidneys: Unremarkable. Three-vessel cord: Unremarkable. Cord insertion: Unremarkable. Umbilical artery velocity: Unremarkable. Posterior fossa:Unremarkable. ventricles: Unremarkable. nose: Unremarkable. lips: Unremarkable. palate: Unremarkable. spine: Unremarkable. Two arms and two legs: Unremarkable. IMPRESSION: 1. Single live intrauterine gestation as above. size and weight are concordant with dates. 2. Normal anatomic survey. DATA REPOSITORY:
== END 2021-09-16 01:11 ==
PROVIDERS: PCP Family Medicine; Visit Provider Advanced Practice Midwife
DX: Z34.92 Encounter for supervision of normal pregnancy, unspecified, second trimester (principal); Z3A.19 19 weeks gestation of pregnancy
CPT/HCPCS: 76805

== ENCOUNTER 2021-09-24 03:49 | Outpatient (CLI) | payer MEDICAID, SELFPAY ==
[2021-09-24] MEDS: diphenhydrAMINE 50 MG/ML VIAL IVP (13:55)
[2021-09-24 13:59] VITALS: BP 127/80; PULSE 85; RESP 24; TEMP 36.7; O2SAT 98
[2021-09-24 15:44] VITALS: BP 128/77; RESP 20; TEMP 36.8
== END 2021-09-24 03:50 | disposition home or self-care (01) ==
PROVIDERS: PCP Family Medicine; Visit Provider Family Medicine
DX: U07.1 COVID-19 (principal)
CPT/HCPCS: 96365; Q0047; J1200

== ENCOUNTER 2021-10-03 08:56 | Outpatient (CLI) | payer MEDICAID, SELFPAY ==
[2021-10-03 10:00] VITALS: BP 117/67; PULSE 69; TEMP 36.9
[2021-10-03] MEDS: Lactated Ringers 1,000 ML 1000 ML IV (10:00)
--- NOTE | 2021-10-03 13:24 | W.OBNST ---
Date of service: 10/03/21 Time of Service: 09:00 NST Evaluation Reason for NST Reasons for Nonstress Test: OTHER, SEE COMMENT Reason for NST Other: post covid nausea Gestational Age Gestational Age in Weeks and Days: 22 Weeks and 0Days Vital Signs Blood Pressure: 117/67 Pulse: 69 Temperature: 98.4 F NST Information Date on Monitor: 10/03/21 Time on Monitor: 08:55 Date off Monitor: 10/03/21 Time off Monitor: 09:10 Total Time on Monitor: 15 NST Interventions: None NST Evaluation Patient States Movement: Present FHR Baseline: 145 Variability: Moderate 6-25 bpm Note NST Note Note: Pt to L&D for IVF due to n/v continuing 12 days s/p covid. Decreased FM. Tracing looks excellent for 22wks. NST Reviewed and Verified by: Treva Mcfadden
[2021-10-03 13:25] VITALS: BP 117/67; PULSE 69; TEMP 36.9
== END 2021-10-03 11:00 | disposition home or self-care (01) ==
LOC: BCD 09:13 → OBS 09:19
PROVIDERS: PCP Family Medicine; Visit Provider Obstetrics & Gynecology
DX: O98.513 Other viral diseases complicating pregnancy, third trimester (principal); R11.2 Nausea with vomiting, unspecified; U09.9 Post COVID-19 condition, unspecified; Z3A.22 22 weeks gestation of pregnancy
CPT/HCPCS: 59025; 96360; G0378

== ENCOUNTER 2021-10-30 18:23 | Outpatient (REF) | payer MEDICAID, SELFPAY | END 2021-10-30 18:24 | disposition home or self-care (01) | LOC: LBN 18:23 | PROVIDERS: PCP Family Medicine; Visit Provider Obstetrics & Gynecology | DX: R30.0 Dysuria (principal) | CPT/HCPCS: 87086 ==

== ENCOUNTER 2021-11-21 16:11 | Outpatient (REF) | payer MEDICAID, SELFPAY | END 2021-11-21 16:12 | disposition home or self-care (01) | LOC: LBN 16:11 | PROVIDERS: PCP Family Medicine; Visit Provider Obstetrics & Gynecology | DX: R30.0 Dysuria (principal) | CPT/HCPCS: 87086 ==

== ENCOUNTER 2021-11-22 02:15 | Outpatient (CLI) | payer MEDICAID, SELFPAY ==
--- NOTE | 2021-11-22 07:45 | DI.US_ITS ---
Exam(s) US LOWER EXTREMITY VENOUS RT EXAM: US LOWER EXTREMITY VENOUS RT CLINICAL HISTORY: lower extremity swelling,O12.00 TECHNIQUE: Right lower extremity venous ultrasound performed using grayscale, color-flow, and spectr al Doppler analysis. COMPARISON: No exams were available for comparison FINDINGS: The right common femoral, femoral and popliteal veins demonstrate normal compressibility, augmentatio n, and color Doppler. The posterior tibial veins are patent. The saphenofemoral junction is unremark able. There is no evidence of a Toro cyst. The soft tissues are unremarkable. IMPRESSION: No DVT. DATA REPOSITORY:
== END 2021-11-22 02:35 ==
PROVIDERS: PCP Family Medicine; Visit Provider Obstetrics & Gynecology
DX: O12.03 Gestational edema, third trimester (principal)
CPT/HCPCS: 93971

== ENCOUNTER 2021-11-28 04:06 | Outpatient (CLI) | payer MEDICAID, SELFPAY ==
[2021-11-28 11:18] LABS: Glucose,1 Hr (Glucola) 87 mg/dL (80-140)
== END 2021-11-28 04:07 | disposition home or self-care (01) ==
LOC: LBO 04:06
PROVIDERS: PCP Family Medicine; Visit Provider Obstetrics & Gynecology
DX: Z34.93 Encounter for supervision of normal pregnancy, unspecified, third trimester (principal)
CPT/HCPCS: 36415; 82950

== ENCOUNTER 2021-12-04 09:32 | Outpatient (CLI) | payer MEDICAID, SELFPAY ==
[2021-12-04 10:11] VITALS: BP 122/71; PULSE 84; TEMP 37.1
[2021-12-04 10:25] VITALS: BP 122/71; PULSE 84
[2021-12-04 11:28] LABS: ROM Plus Negative
[2022-01-15 08:59] VITALS: BP 122/71; PULSE 84; TEMP 37.1
--- NOTE | 2022-01-15 08:59 | W.OBNST ---
Date of service: 01/15/22 Time of Service: 07:59 NST Evaluation Reason for NST Reasons for Nonstress Test: OTHER, SEE COMMENT Reason for NST Other: R/O SROM Gestational Age Gestational Age in Weeks and Days: 30 Weeks and 6Days Test and Monitor Explained Test/Monitor Explained: Test Explained, Monitor Explained and Patient Verbalized Understanding Vital Signs Blood Pressure: 122/71 Pulse: 84 Temperature: 98.8 F NST Information Date on Monitor: 12/04/21 Time on Monitor: 10:15 Date off Monitor: 12/04/21 Time off Monitor: 10:45 Total Time on Monitor: 30 NST Interventions: None NST Evaluation Patient States Movement: Present FHR Baseline: 140 Variability: Moderate 6-25 bpm Accelerations: 15x15 Decelerations: None NST Results: Reactive Note NST Note Note: Neg SROM. Pt evaluated and discharged to home. NST Reviewed and Verified by: Amy John
--- NOTE | 2022-01-16 22:38 | W.OBNST ---
Date of service: 01/16/22 Time of Service: 21:39 NST Evaluation Reason for NST Reasons for Nonstress Test: OTHER, SEE COMMENT Reason for NST Other: R/O SROM Gestational Age Gestational Age in Weeks and Days: 36 Weeks and 6Days Test and Monitor Explained Test/Monitor Explained: Test Explained, Monitor Explained and Patient Verbalized Understanding Vital Signs Blood Pressure: 122/71 Pulse: 84 Temperature: 98.8 F NST Information Date on Monitor: 12/04/21 Time on Monitor: 10:15 Date off Monitor: 12/04/21 Time off Monitor: 10:45 Total Time on Monitor: 30 NST Interventions: None NST Evaluation Patient States Movement: Present FHR Baseline: 140 Variability: Moderate 6-25 bpm Accelerations: 15x15 Decelerations: None NST Results: Reactive Note NST Note Note: reactive NST NST Reviewed and Verified by: Amy John
[2022-01-16 22:39] VITALS: BP 122/71; PULSE 84; TEMP 37.1
== END 2021-12-04 11:39 | disposition home or self-care (01) ==
LOC: BCD 09:37 → OBS 10:10
PROVIDERS: PCP Family Medicine; Visit Provider Obstetrics & Gynecology Gynecology
DX: O26.893 Other specified pregnancy related conditions, third trimester (principal); Z3A.31 31 weeks gestation of pregnancy
CPT/HCPCS: 84112; 59025

== ENCOUNTER 2021-12-06 13:09 | Outpatient (REF) | payer MEDICAID, SELFPAY | END 2021-12-06 13:10 | disposition home or self-care (01) | LOC: LBN 13:09 | PROVIDERS: PCP Family Medicine; Visit Provider Obstetrics & Gynecology | DX: Z34.93 Encounter for supervision of normal pregnancy, unspecified, third trimester (principal); N89.8 Other specified noninflammatory disorders of vagina; Z3A.31 31 weeks gestation of pregnancy | CPT/HCPCS: 87480; 87510; 87660 ==

== ENCOUNTER 2021-12-11 02:06 | Outpatient (CLI) | payer MEDICAID, SELFPAY ==
--- NOTE | 2021-12-11 07:45 | DI.US_ITS ---
Exam(s) US OB BIJAL WEIGHT EXAM: US OB BIJAL WEIGHT CLINICAL HISTORY: history of covid in ,U07.1,O98.512. TECHNIQUE: Transabdominal obstetrical ultrasound performed. COMPARISON: US US OB 2-3 TRIMESTER from 09/16/2021 FINDINGS:: Number of fetuses: One. position: Breech Placental location: Posterior. No evidence of previa. BIOMETRIC DATA: BPD: 77mm = 30+ 6 weeks HC: 293mm = 32+2 weeks AC: 268mm = 31 weeks FL: 62 mm = 32+1 weeks EFW: 1767 Gms = 26% Composite Age: 31+4 weeks EDC: 08 February 2022 Heart Rate: 144BPM Amniotic fluid index: 11.8 cm. Amount of fluid is within normal limits. IMPRESSION: size and weight are within the expected range. DATA REPOSITORY:
== END 2021-12-11 02:26 ==
PROVIDERS: PCP Family Medicine; Visit Provider Obstetrics & Gynecology
DX: O98.513 Other viral diseases complicating pregnancy, third trimester (principal); U07.1 COVID-19; Z3A.31 31 weeks gestation of pregnancy
CPT/HCPCS: 76816

== ENCOUNTER 2021-12-13 10:59 | Emergency (ER) | payer MEDICAID, SELFPAY ==
[2021-12-13 11:07] VITALS: BP 113/60; PULSE 85; RESP 16; TEMP 36.9; O2SAT 97
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
[2021-12-13] MEDS: Cyclobenzaprine 10 MG TAB PO (11:52)
[2021-12-13] MEDS: Lidocaine 5% Patch 1 PATCH TP (11:52)
[2021-12-13] MEDS: Acetaminophen 325 MG TAB 650 MG PO (11:52)
[2021-12-13 12:40] VITALS: BP 99/56; PULSE 84; RESP 18; O2SAT 98
[2021-12-13] MEDS: Cyclobenzaprine 10 MG TAB, 3 TABS/BTL PO (13:04)
== END 2021-12-13 13:08 | disposition home or self-care (01) ==
PROVIDERS: Emergency Provider Registered Nurse Emergency; PCP Family Medicine
DX: O26.893 Other specified pregnancy related conditions, third trimester (principal); M54.42 Lumbago with sciatica, left side; Z3A.37 37 weeks gestation of pregnancy
CPT/HCPCS: 99283

== ENCOUNTER 2022-01-15 14:43 | Outpatient (CLI) | payer MEDICAID, SELFPAY ==
[2022-01-15 15:02] VITALS: BP 125/77; PULSE 71; TEMP 36.7
--- NOTE | 2022-01-15 15:17 | W.OBNST ---
Date of service: 01/15/22 Time of Service: 14:17 NST Evaluation Reason for NST Reasons for Nonstress Test: ADVANCED MATERNAL AGE Gestational Age Gestational Age in Weeks and Days: 36 Weeks and 6Days Test and Monitor Explained Test/Monitor Explained: Test Explained, Monitor Explained and Patient Verbalized Understanding Vital Signs Blood Pressure: 125/77 Pulse: 71 Temperature: 98.1 F NST Information Date on Monitor: 01/15/22 Time on Monitor: 14:43 Date off Monitor: 01/15/22 Time off Monitor: 15:06 Total Time on Monitor: 23 NST Interventions: None Contraction Frequency: Occasional, Pt denies feeling NST Evaluation Patient States Movement: Present FHR Baseline: 130 Variability: Moderate 6-25 bpm Accelerations: 15x15 Decelerations: None NST Results: Reactive Note NST Note Note: Patient in surveillance now for advanced maternal age, and COVID positivity during . She has had a 2 prior section, second being for spontaneous bleeding. The end of this has been complicated by intermittent spotting. Nonstress test was performed today which was category 1, with occasional uterine activity. Cervix had been checked in the office which was closed and group B strep culture was obtained. She will continue to have twice weekly surveillance and her scheduled at 39 weeks. NST Reviewed and Verified by: Lida Portillo
[2022-01-15 15:18] VITALS: BP 125/77; PULSE 71; TEMP 36.7
[2022-01-15 22:56] LABS: *AMPHETAMINES SCREEN URINE Negative (Negative); *BARBITURATES SCREEN URINE Negative (Negative); *BENZODIAZEPINES SCREEN URINE Negative (Negative); Cannabinoids THC Negative (Negative); Cocaine Screen,Urine Negative (Negative); METHADONE URINE SCREEN Negative (Negative); OPIATES URINE SCREEN Negative (Negative)
[2022-01-15 22:58] LABS: Tricyclic Antidepressants Negative (Negative)
[2022-01-24 14:58] LABS: Buprenorphine Negative ng/mL (Cutoff: 5.0); Norbuprenorphine Negative ng/mL (Cutoff: 2.5)
== END 2022-01-15 15:12 | disposition home or self-care (01) ==
LOC: BCD 14:47 → OBS 14:48
PROVIDERS: PCP Family Medicine; Visit Provider Obstetrics & Gynecology
DX: O09.523 Supervision of elderly multigravida, third trimester
CPT/HCPCS: 59025; 80307; 87081

== ENCOUNTER 2022-01-18 08:03 | Outpatient (CLI) | payer MEDICAID, SELFPAY ==
[2022-01-18 13:09] VITALS: BP 129/79; PULSE 86
[2022-01-18 13:34] VITALS: BP 129/79; PULSE 86; TEMP 36.6
--- NOTE | 2022-01-19 03:22 | W.OBNST ---
Date of service: 01/19/22 Time of Service: 02:23 NST Evaluation Reason for NST Reasons for Nonstress Test: ADVANCED MATERNAL AGE Reason for NST Other: Covid in Gestational Age Gestational Age in Weeks and Days: 37 Weeks and 2Days Test and Monitor Explained Test/Monitor Explained: Test Explained, Monitor Explained and Patient Verbalized Understanding Vital Signs Blood Pressure: 129/79 Pulse: 86 Temperature: 97.9 F NST Information Date on Monitor: 01/18/22 Time on Monitor: 13:08 Date off Monitor: 01/18/22 Time off Monitor: 13:28 Total Time on Monitor: 20 NST Interventions: PO Hydration Contraction Frequency: 0 NST Evaluation Patient States Movement: Present FHR Baseline: 135 Variability: Moderate 6-25 bpm Accelerations: 15x15 Decelerations: None NST Results: Reactive Note NST Note Note: Reactive strip, category 1 NST Reviewed and Verified by: Lida Portillo
[2022-01-19 03:23] VITALS: BP 129/79; PULSE 86; TEMP 36.6
== END 2022-01-18 13:30 | disposition home or self-care (01) ==
LOC: BCD 08:06 → OBS 13:03
PROVIDERS: PCP Family Medicine; Visit Provider Obstetrics & Gynecology
DX: O09.523 Supervision of elderly multigravida, third trimester (principal); O98.513 Other viral diseases complicating pregnancy, third trimester
CPT/HCPCS: 59025

== ENCOUNTER → 2022-01-21 02:08 | Outpatient (CLI) | payer MEDICAID, SELFPAY ==
--- NOTE | 2022-01-21 08:00 | DI.US_ITS ---
Exam(s) US OB BIJAL WEIGHT EXAM: US OB BIJAL WEIGHT CLINICAL HISTORY: growth and BIJAL, AMA, COVID, O09.529, O98.512, U07.1 TECHNIQUE: Ultrasound performed using standard protocol. COMPARISON: US US OB BIJAL WEIGHT from 12/11/2021 FINDINGS: Ob ultrasound was performed utilizing 3rd trimester protocol. Placenta is posterior with no placenta previa. There is visually a normal quantity of amniotic fluid and the BIJAL is 10. heart rate is 125 BPM. biometry is consistent with gestational age of 37 weeks 6 days and EDC of February 11. The estimated weight is 3087 grams which is at the 41st percentile for predicted gestational ag e. IMPRESSION: DATA REPOSITORY:
== END ==
PROVIDERS: PCP Family Medicine; Visit Provider Obstetrics & Gynecology
DX: O09.523 Supervision of elderly multigravida, third trimester (principal); O98.513 Other viral diseases complicating pregnancy, third trimester; U07.1 COVID-19; Z3A.37 37 weeks gestation of pregnancy
CPT/HCPCS: 76816

== ENCOUNTER 2022-01-21 07:34 | Outpatient (CLI) | payer MEDICAID, SELFPAY ==
[2022-01-21 11:56] VITALS: BP 123/76; PULSE 81; TEMP 36.7
[2022-01-21 12:00] VITALS: BP 123/76; PULSE 81
[2022-01-21 12:19] VITALS: BP 123/76; PULSE 81; TEMP 36.7
[2022-01-23 19:00] VITALS: BP 123/76; PULSE 81; TEMP 36.7
--- NOTE | 2022-01-23 19:00 | W.OBNST ---
Date of service: 01/23/22 Time of Service: 18:00 NST Evaluation Reason for NST Reasons for Nonstress Test: ADVANCED MATERNAL AGE Gestational Age Gestational Age in Weeks and Days: 38 Weeks and 0Days Test and Monitor Explained Test/Monitor Explained: Test Explained, Monitor Explained and Patient Verbalized Understanding Vital Signs Blood Pressure: 123/76 Pulse: 81 Temperature: 98.0 F Urine Results Urine Protein: Negative Urine Ketones: Negative Urine Glucose: Negative Urine Blood: Negative NST Information Date on Monitor: 01/21/22 Time on Monitor: 11:57 Date off Monitor: 01/21/22 Time off Monitor: 12:19 Total Time on Monitor: 22 NST Interventions: PO Hydration NST Evaluation Patient States Movement: Present FHR Baseline: 140 Variability: Moderate 6-25 bpm Accelerations: 15x15 Decelerations: None NST Results: Reactive Note NST Note NST Reviewed and Verified by: Amy John
== END 2022-01-21 12:30 | disposition home or self-care (01) ==
LOC: BCD 08:11 → OBS 11:51
PROVIDERS: PCP Family Medicine; Visit Provider Obstetrics & Gynecology
DX: O09.523 Supervision of elderly multigravida, third trimester (principal)
CPT/HCPCS: 59025

== ENCOUNTER 2022-01-23 11:37 | Outpatient (CLI) | payer MEDICAID, SELFPAY ==
[2022-01-23 12:59] VITALS: BP 127/78; PULSE 73; TEMP 36.6
[2022-01-23 13:20] VITALS: BP 127/78; PULSE 73
--- NOTE | 2022-01-23 14:22 | W.OBNST ---
Date of service: 01/23/22 Time of Service: 13:22 NST Evaluation Reason for NST Reasons for Nonstress Test: ADVANCED MATERNAL AGE Gestational Age Gestational Age in Weeks and Days: 38 Weeks and 0Days Test and Monitor Explained Test/Monitor Explained: Test Explained, Monitor Explained and Patient Verbalized Understanding Vital Signs Blood Pressure: 127/78 Pulse: 73 Temperature: 97.9 F Urine Results Urine Protein: Negative Urine Ketones: Negative Urine Glucose: Negative Urine Blood: Negative NST Information Date on Monitor: 01/23/22 Time on Monitor: 13:03 NST Interventions: None Contraction Frequency: Occasional NST Evaluation Patient States Movement: Present FHR Baseline: 130 Variability: Moderate 6-25 bpm Accelerations: 15x15 Decelerations: None NST Results: Reactive Note NST Note Note: Reactive NST, category 1 strip, occasional mild contraction. visit performed on the center. Follow-up as directed with twice weekly testing. Ultrasound discussed. Fetus is breech. is scheduled at 39 weeks NST Reviewed and Verified by: Lida Portillo
[2022-01-23 14:23] VITALS: BP 127/78; PULSE 73; TEMP 36.6
== END 2022-01-23 13:50 | disposition home or self-care (01) ==
LOC: BCD 11:41 → OBS 12:54
PROVIDERS: PCP Family Medicine; Visit Provider Obstetrics & Gynecology
DX: O09.523 Supervision of elderly multigravida, third trimester (principal)
CPT/HCPCS: 59025

== ENCOUNTER 2022-01-27 07:22 | Outpatient (CLI) | payer MEDICAID, SELFPAY ==
[2022-01-27 11:26] VITALS: BP 122/72; PULSE 72; TEMP 36.8
[2022-01-27 11:48] VITALS: BP 122/72; PULSE 72
[2022-01-27 16:37] VITALS: BP 122/72; PULSE 72; TEMP 36.8
--- NOTE | 2022-01-27 16:37 | W.OBNST ---
Date of service: 01/27/22 Time of Service: 11:00 NST Evaluation Reason for NST Reasons for Nonstress Test: ADVANCED MATERNAL AGE Gestational Age Gestational Age in Weeks and Days: 38 Weeks and 4Days Test and Monitor Explained Test/Monitor Explained: Test Explained, Monitor Explained and Patient Verbalized Understanding Vital Signs Blood Pressure: 122/72 Pulse: 72 Temperature: 98.2 F Urine Results Urine Protein: Negative Urine Ketones: Negative Urine Glucose: Negative Urine Blood: Negative NST Information Date on Monitor: 01/27/22 Time on Monitor: 11:25 Date off Monitor: 01/27/22 Time off Monitor: 11:55 Total Time on Monitor: 30 NST Interventions: None Contraction Frequency: none NST Evaluation Patient States Movement: Present FHR Baseline: 130 Variability: Moderate 6-25 bpm Accelerations: 15x15 Decelerations: None NST Results: Reactive Note NST Note Note: CS in 3 days NST Reviewed and Verified by: Treva Mcfadden
== END 2022-01-27 12:00 | disposition home or self-care (01) ==
LOC: BCD 07:23 → OBS 10:51
PROVIDERS: PCP Family Medicine; Visit Provider Obstetrics & Gynecology
DX: O09.523 Supervision of elderly multigravida, third trimester (principal)
CPT/HCPCS: 59025

== ENCOUNTER 2022-01-29 03:59 | Outpatient (CLI) | payer MEDICAID, SELFPAY ==
[2022-01-29 10:29] LABS: HCT 32.5 % (36.0-46.0); MCH 30.6 pg (27.0-33.0); MCHC 33.8 % (32.0-36.0); MCV 91 fL (80-95); MPV 9.4 fL (8.0-11.0); Platelet Count 260 10^3/uL (130-400); RBC 3.59 10^6/uL (3.93-5.22); RDW-SD 39.5 fL; WBC 7.87 10^3/uL (4.4-10.8)
== END 2022-01-29 04:00 | disposition home or self-care (01) ==
LOC: LBO 03:59 → LBN 12:32 → LBO 12:33
PROVIDERS: PCP Family Medicine; Visit Provider Obstetrics & Gynecology
DX: O34.219 Maternal care for unspecified type scar from previous cesarean delivery (principal); O09.523 Supervision of elderly multigravida, third trimester; Z3A.39 39 weeks gestation of pregnancy; Z01.818 Encounter for other preprocedural examination; Z01.812 Encounter for preprocedural laboratory examination
CPT/HCPCS: 36415; 85027; 86850; 86900; 86901

== ENCOUNTER 2022-01-29 04:00 | Outpatient (CLI) | payer MEDICAID, SELFPAY ==
[2022-01-29 12:36] LABS: Source Nasal/Nares
[2022-01-29 16:34] LABS: COVID-19 PCR Negative (Negative)
== END 2022-01-29 04:01 | disposition home or self-care (01) ==
LOC: LBO 04:00 → LBN 12:34
PROVIDERS: PCP Family Medicine; Visit Provider Obstetrics & Gynecology
DX: Z20.822 Contact with and (suspected) exposure to COVID-19 (principal); Z01.818 Encounter for other preprocedural examination
CPT/HCPCS: 87635

== ENCOUNTER 2022-01-30 06:00 | Inpatient (IN) | payer MEDICAID, SELFPAY ==
[2022-01-30] VITALS (14 sets, daily range): BP systolic 113–132; BP diastolic 67–79; PULSE 64–75; RESP 15–20; TEMP 36.5–36.9; O2SAT 97–98; BMI 34.0
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
[2022-01-30] MEDS: ceFAZolin 2 GM/50 ML BAG IVPB (06:55)
[2022-01-30] MEDS: Lactated Ringers 1,000 ML 200 ML IV ×2 (06:56→09:29)
[2022-01-30] MEDS: Sodium Citrate 30 ML CUP PO (08:13)
[2022-01-30] MEDS: AZITHROMYCIN 500 MG in Normal Saline 250 ML 250 MG IVPB (08:14)
[2022-01-30] MEDS: Oxytocin/Normal Saline 30 UNIT/500 ML BAG 95 UNITS IV (10:15)
--- NOTE | 2022-01-30 11:17 | ROE_ITS ---
Date of service: 01/30/22 Time of Service: 08:30 Operative Note Operative Note PRE-OP DIAGNOSIS: IUP @39wks. Prior CS x2. Breech presentation. POST-OP DIAGNOSIS: same PROCEDURE: RLTCS SURGEON: Treva Mcfadden ASSISTING SURGEON: Amy John ANESTHESIA TYPE: Spinal Refer to Anesthesia Record ESTIMATED BLOOD LOSS: 700 COMPLICATIONS: None Patient was transported to: floor Patient's condition: stable Findings: Female infant, breech presentation. Apgars 8/9. Weight 6lbs 4oz. Normal appearing uterus with very thin uterine wall in the center of the lower uterine segment. No significant intra-abdominal adhesions. Moderate scar tissue between skin and peritoneum. Procedure Description: After informed consent was signed the patient was taken to the operating room. She was given spinal anesthesia, SCDs were placed on her legs and a arevalo catheter was introduced into her bladder. The heart rate was checked and was normal. She was then prepped and draped in the dorsal supine position with a leftward tilt. The patient was tested and spinal anesthesia was thought to be adequate to sharp pain. However, she was very sensitive to pressure. A time out was performed. A skin incision was made with the scalpel and carried down to the underlying layer of fascia with sharp and blunt dissection. The fascia was incised on either side of the midline and the fascial incision extended laterally with a combination of sharp and blunt dissection. The inferior edge of the fascia was grasped with montse clamps and tented up and dissected down with a combination of sharp and blunt dissection. Then the superior edge of the fascial incision was grasped with montse clamps and tented up and dissected down with a combination of sharp and blunt dissection. The rectus muscles were in the midline and the peritoneum was entered bluntly. The peritoneal incision was extended laterally with a combination of sharp and blunt dissection. The bladder blade was inserted. The lower uterine segment was noted to be very thin in the center portion. A transverse incision was made in the lower uterine segm ent with the scalpel. The incision was extended superiorly and inferiorly with blunt pressure. The infants buttocks were delivered followed by the torso and legs. The arms were delivered with internal rotation and the head delivered easily in a flexed position. The cord was milked toward the baby and after >30sec it was clamped x2 and cut. The baby was handed to the medical equipment repair technician. Cord blood was collected. The placenta delivered with fundal massage and gentle cord traction and appeared to be intact. The uterus was exteriorized and cleared of clots and debris. The uterine incision was closed with 0-vicryl in a running locked fashion with a second layer of suture imbricating the first. Good hemostasis was noted along the length of the incision but there was a small area of bleeding just above the right edge of the incision. 2 sutures of 0 monocryl were placed with good hemostasis. The uterus was placed back into the abdominal cavity. The gutters were cleared of clots and debris. The incision was inspected once again and good hemostasis was noted. There was good hemostasis of the rectus muscles. The fascia was closed with 0- vicryl in a running unlocked fashion. The subcuticular layer was irrigated and the skin was closed with 4-0 vicryl in a running subcuticular fashion. The incision was cleaned. Mastisol and steristrips were placed. A dressing was placed. The fundus was palpated to be firm. The patient was moved to the stretcher and taken to the recovery room in stable condition.
--- NOTE | 2022-01-30 11:59 | W.OBNST ---
Date of service: 01/30/22 Time of Service: 11:30 NST Evaluation Reason for NST Reasons for Nonstress Test: ADVANCED MATERNAL AGE Reason for NST Other: Prior to Gestational Age Gestational Age in Weeks and Days: 39 Weeks and 0Days Test and Monitor Explained Test/Monitor Explained: Test Explained, Monitor Explained and Patient Verbalized Understanding Vital Signs Blood Pressure: 113/67 Pulse: 72 Temperature: 97.9 F Urine Results Urine Protein: Negative Urine Ketones: Negative Urine Glucose: Negative Urine Blood: Positive NST Information Date on Monitor: 01/30/22 Time on Monitor: 06:24 Date off Monitor: 01/30/22 Time off Monitor: 07:42 Total Time on Monitor: 78 NST Interventions: None Contraction Frequency: none NST Evaluation Patient States Movement: Present and Increased FHR Baseline: 155 Variability: Moderate 6-25 bpm Accelerations: 15x15 and Prolonged Decelerations: Variable NST Results: Reactive Note NST Note Note: DM 39wks. IND scheduled Tues. Cx: 1-2/50/-3/soft/midplane. Will likely start with pitocin. Reviewed reasons to call prior to IND. NST Reviewed and Verified by: Treva Mcfadden
[2022-01-30] MEDS: Ketorolac 30 MG/ML VIAL IVP ×2 (16:17→22:00)
[2022-01-30] MEDS: Lactated Ringers 1,000 ML 120 ML IV (20:59)
[2022-01-30] MEDS: Normal Saline Flush 10 ML SYR IVP (22:00)
[2022-01-31] MEDS: Ketorolac 30 MG/ML VIAL IVP (03:40)
[2022-01-31] MEDS: Normal Saline Flush 10 ML SYR IVP (03:40)
[2022-01-31 05:00] VITALS: BP 119/76; PULSE 64; RESP 18; TEMP 36.6
[2022-01-31] MEDS: oxyCODONE 5 mg/Acetaminophen 325 mg TAB PO ×2 (05:14→09:10)
[2022-01-31 06:34] LABS: Abs Immature Grans 0.03 10^3/uL (0.0-0.06); Absolute Basophil Count 0.02 10^3/uL (0.0-0.2); Absolute Eosinophil Count 0.15 10^3/uL (0.0-0.7); Absolute Neutrophil Count 6.63 10^3/uL (1.2-6.7); Basophils % 0.2; Eosinophils % 1.6; HCT 28.4 % (36.0-46.0); HGB 9.5 g/dL (11.2-15.7); Immature Grans % 0.3; MCH 30.3 pg (27.0-33.0); MCHC 33.5 % (32.0-36.0); MCV 90 fL (80-95); MPV 9.5 fL (8.0-11.0); Monocytes % 6.3; Neutrophils % 69.6; Platelet Count 200 10^3/uL (130-400); RBC 3.14 10^6/uL (3.93-5.22); RDW-SD 39.8 fL; WBC 9.53 10^3/uL (4.4-10.8)
[2022-01-31 07:30] VITALS: BP 122/80; PULSE 64; RESP 14; TEMP 36.8; O2SAT 98
--- NOTE | 2022-01-31 07:57 | W.PM.OBPNV1 ---
Date of service: 01/31/22 Time of Service: 06:57 Assessment and Plan Assessment and plan (1) History of delivery: Status: Acute Assessment and plan: Postop day 1 repeat delivery. Patient attempted to breast-feed but reports poor latch. We will have breast-feeding counselor speak with her today. The plan today is to remove Garcia catheter to assist with ambulation and begin oral pain medications. Subjective Subjective Patient comments: Incisional pain and Tolerating diet baby status: Doing well, Supplemental feeding going well, Rooming in and Strong Bonding Observed Jewell feeding status: Breast and formula feeding (Patient reports that it was difficult having the latch on last evening.) Narrative: Anticipate breast eating consult later today. Exam Physical Exam Vital signs: Temp Pulse Resp BP Pulse Ox 97.8 F 64 18 119/76 97 01/31/22 05:00 01/31/22 05:00 01/31/22 05:00 01/31/22 05:00 01/30/22 16:05 Vital Signs Reviewed: Yes Constitutional Constitutional: no acute distress HEENT Exam HEENT Exam: Not Done Neck Exam Neck Exam: Not Done Respiratory Exam Respiratory Exam: Normal Cardiovascular Exam Cardiovascular Exam: Normal Abdominal Exam Abdomen: Other (Incision covered with sterile dressing. That will be removed today) Fundal Exam Fundus: Below Umbilicus and Firm Rectal Exam Rectal Exam: Not Done Extremities Exam Extremity Exam: Normal and Warm to Touch Back/Spine/Pelvis Exam Back Exam: Not Done Skin Exam Skin Exam: Normal Psychiatric Exam Psychiatric Exam: Normal Results Hemoglobin/Hematocrit: Hgb 9.5 g/dL (11.2-15.7) L 01/31/22 06:10 Hct 28.4 % (36.0-46.0) L 01/31/22 06:10 Abnormal Lab Findings: Abnormal Labs 01/31/22 06:10 RBC 3.14 L Hgb 9.5 L Hct 28.4 L
[2022-01-31] MEDS: Prenatal Multivitamin w/CA,FE TAB 1 TAB PO (09:10)
--- NOTE | 2022-01-31 12:36 | W.ANESPOSTOP ---
Postoperative Evaluation Date, Time and Location Date Performed: 01/31/22 Time Performed: 12:05 Patient Location: Day Surgery Unit Vital Signs Most Recent Imported Vital Signs: Most Recent Vital Signs Temp Pulse Resp BP Pulse Ox 36.8 C 64 14 122/80 98 01/31/22 07:30 01/31/22 07:30 01/31/22 07:30 01/31/22 07:30 01/31/22 07:30 Pain Score Most Recent Pain Score: Most Recent Pain Score Pain Level 5 01/31/22 09:10 Assessment Mental Status: Awake (Alert & Oriented to Patient Baseline) Airway and Respiratory Function: Patent airway with normal (patient baseline) respiratory exam Cardiovascular Function: Hemodynamically Stable Hydration Status: Adequately Hydrated Nausea & Vomiting: No Nausea or Vomiting Pain: Pain is Moderate or Severe Postoperative Pain Management: Pain being addressed with medication Peripheral Nerve Block: Patient did not receive a nerve block
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
== END 2022-01-31 16:35 | disposition home or self-care (01) | DRG 788 ==
PROVIDERS: Obstetrics & Gynecology Gynecology; Admitting Provider Obstetrics & Gynecology; PCP Family Medicine; Visit Provider Obstetrics & Gynecology
PROC: 10D00Z1 Extraction of Products of Conception, Low, Open Approach (ICD-10-PCS; CPT 59514; principal; 2022-01-30 07:30)
DX: O32.1XX0 Maternal care for breech presentation, not applicable or unspecified (principal); O34.211 Maternal care for low transverse scar from previous cesarean delivery; Z37.0 Single live birth; N85.8 Other specified noninflammatory disorders of uterus; O12.04 Gestational edema, complicating childbirth; Z3A.39 39 weeks gestation of pregnancy; Z86.16 Personal history of COVID-19
CPT/HCPCS: 59514; 36415; 59025; 85025; J0131; J0456; J0690; J1100; J1885; J2370; J2405; J3010

== ENCOUNTER 2022-03-06 18:47 | Outpatient (REF) | payer MEDICAID, SELFPAY | END 2022-03-06 18:48 | disposition home or self-care (01) | LOC: LBN 18:47 | PROVIDERS: PCP Family Medicine; Visit Provider Obstetrics & Gynecology | DX: N89.8 Other specified noninflammatory disorders of vagina (principal) | CPT/HCPCS: 87480; 87510; 87660 ==

== ENCOUNTER 2023-03-26 16:35 | Outpatient (REF) | payer MEDICAID, SELFPAY ==
[2023-03-28 12:25] LABS: Chlamydia Result Negative (Negative); GC Result Negative (Negative)
== END 2023-03-26 16:36 | disposition home or self-care (01) ==
LOC: LBN 16:35
PROVIDERS: PCP Family Medicine; Visit Provider Obstetrics & Gynecology
DX: Z11.3 Encounter for screening for infections with a predominantly sexual mode of transmission (principal); N94.9 Unspecified condition associated with female genital organs and menstrual cycle
CPT/HCPCS: 87491; 87591; 87480; 87510; 87660

== ENCOUNTER 2023-03-26 20:21 | Outpatient (CLI) | payer MEDICAID, SELFPAY ==
[2023-03-29 10:08] LABS: HIV-1/2 Ag & Ab Screen Negative (Negative)
[2023-03-30 11:21] LABS: Syphilis Serology (RPR) Negative (Negative)
[2023-03-30 15:20] LABS: Hepatitis C Ab w Rflx HCV PCR Negative (Negative)
== END 2023-03-26 20:22 | disposition home or self-care (01) ==
LOC: LBO 20:21
PROVIDERS: PCP Family Medicine; Visit Provider Obstetrics & Gynecology
DX: Z11.3 Encounter for screening for infections with a predominantly sexual mode of transmission (principal)
CPT/HCPCS: 36415; 86803; 87389; 86592

== ENCOUNTER 2023-12-11 18:01 | Outpatient (REF) | payer MEDICAID, SELFPAY ==
[2023-12-14 10:01] LABS: Lyme Ab w Rflx to Lyme Confirm Negative (Negative)
== END 2023-12-11 18:02 | disposition home or self-care (01) ==
LOC: LBN 18:01
PROVIDERS: PCP Family Medicine; Visit Provider Physician Assistant Medical
DX: M25.562 Pain in left knee (principal)
CPT/HCPCS: 87476; 87798; 86618

== ENCOUNTER 2024-09-06 11:02 | Outpatient (REF) | payer MEDICAID, SELFPAY ==
[2024-09-08 12:10] LABS: Chlamydia Result Negative (Negative); GC Result Negative (Negative)
== END 2024-09-06 11:03 | disposition home or self-care (01) ==
LOC: LBN 11:02
PROVIDERS: PCP Family Medicine; Visit Provider Obstetrics & Gynecology
DX: Z11.3 Encounter for screening for infections with a predominantly sexual mode of transmission (principal)
CPT/HCPCS: 87491; 87591

== ENCOUNTER 2024-09-13 02:52 | Outpatient (CLI) | payer MEDICAID, SELFPAY ==
--- NOTE | 2024-09-13 06:30 | DI.US_ITS ---
Exam(s) US PELVIS TRANSVAGINAL EXAM: US PELVIS TRANSVAGINAL CLINICAL HISTORY: ABNL UTERINE BLEEDING,N93.9 TECHNIQUE: Transabdominal and transvaginal imaging was performed using standard protocol. COMPARISON: CT CT ABDOMEN PELVIS WO from 07/31/2019 US US PELVIS from 11/30/2020 US US OB BIJAL WEIGHT from 01/21/2022 FINDINGS: UTERUS: Retroflexed. 10.6 x 5.7 x 6.5 cm Endometrium: 8 mm . IUD in noted in appropriate position. Myometrium: Contour deformity anterior uterus which could represent a fibroid. Approximately 3.5 cm. Cervix: Unremarkable. OVARIES: Right: Cyst or mass: None. Left: Cyst or mass: None. DOPPLER: Color: Symmetric and uniform flow to both ovaries. No hyperemia. CUL-DE-SAC: Free fluid: None. IMPRESSION: 1. Question anterior uterine fibroid. Endometrial stripe within normal limits. IUD in place. 2. Unremarkable bilateral ovaries. DATA REPOSITORY:
== END 2024-09-13 03:12 ==
LOC: DI 02:52
PROVIDERS: PCP Family Medicine; Visit Provider Obstetrics & Gynecology
DX: N93.9 Abnormal uterine and vaginal bleeding, unspecified (principal)
CPT/HCPCS: 76830; 76856

== ENCOUNTER 2025-01-19 11:32 | Outpatient (CLI) | payer MEDICAID, SELFPAY ==
[2025-01-19 11:56] LABS: HCT 39.7 % (36.0-46.0); HGB 13.2 g/dL (11.2-15.7); MCH 29.9 pg (27.0-33.0); MCHC 33.2 % (32.0-36.0); MCV 90 fL (80-95); MPV 9.2 fL (8.0-11.0); Platelet Count 309 10^3/uL (130-400); RBC 4.41 10^6/uL (3.93-5.22); RDW-SD 39.3 fL; WBC 7.08 10^3/uL (4.4-10.8)
[2025-01-19 13:26] LABS: TSH (W/Ref FT4) 1.97 uIU/mL (0.36-3.74)
== END 2025-01-19 11:33 | disposition home or self-care (01) ==
LOC: LBO 11:32
PROVIDERS: PCP Family Medicine; Visit Provider Obstetrics & Gynecology
DX: N92.0 Excessive and frequent menstruation with regular cycle (principal); N93.9 Abnormal uterine and vaginal bleeding, unspecified
CPT/HCPCS: 36415; 85027; 84443

== ENCOUNTER 2025-02-02 13:18 | Outpatient (REF) | payer MEDICAID, SELFPAY ==
--- NOTE | 2025-02-02 13:15 | PAPFT_PTH ---
PATIENT: Betina Rolle LOC: [facility] U#:[id number] AGE/SX: 39/F ROOM: RE02/02/[address]: Treva Mcfadden MD : 1985 BED: DIS: 02/02/2025 SPEC #: [id number] RECD: 02/02/25 17:47 STATUS: GEMA REQ #: [id number] JAYSON: 02/02/25 13:[address]: Treva Mcfadden DEPT: [facility] Cytology RECD BY: Elaina Hudson ENTERED: 02/02/25 17:48 SP TYPE: PAPFT OTHR DR: Norma Lowe Tissues: 1 - CX/ENDOCX FOR PAP SMEARS Procedures: PAP THIN PREP/UVM Screening HPV DNA PROBE Comments: [id number] (HPV 16 & 18/45)
--- NOTE | 2025-02-02 13:20 | ENDOMET_PTH ---
PATIENT: Betina Rolle LOC: [facility] U#:[id number] AGE/SX: 39/F ROOM: RE02/02/[address]: Treva Mcfadden MD : 1985 BED: DIS: 02/02/2025 SPEC #: [id number] RECD: 02/02/25 17:42 STATUS: GEMA REQ #: [id number] JAYSON: 02/02/25 13:[address]: Treva Mcfadden DEPT: Surgical Specimen RECD BY: Elaina Hudson ENTERED: 02/02/25 17:43 SP TYPE: Endomet OTHR DR: Norma Lowe Tissues: 1 - ENDOMETRIUM BX/FIORDALIZA Procedures: GROSS AND MICRO LEVEL 4 Comments: [id number]
== END 2025-02-02 13:19 | disposition home or self-care (01) ==
LOC: LBN 13:18
PROVIDERS: PCP Family Medicine; Visit Provider Obstetrics & Gynecology
DX: Z12.4 Encounter for screening for malignant neoplasm of cervix (principal)
CPT/HCPCS: 88142; 88305; 87624

== ENCOUNTER 2025-02-14 15:59 | Outpatient (CLI) | payer MEDICAID, SELFPAY | END 2025-02-14 16:00 | disposition home or self-care (01) | LOC: LBO 15:59 | PROVIDERS: PCP Family Medicine; Visit Provider Obstetrics & Gynecology | DX: Z01.818 Encounter for other preprocedural examination (principal) | CPT/HCPCS: 36415; 86850; 86900; 86901 ==

== ENCOUNTER 2025-02-15 13:57 | Inpatient (IN) | payer MEDICAID, SELFPAY ==
[2025-02-15] VITALS (31 sets, daily range): BP systolic 103–129; BP diastolic 53–100; PULSE 63–99; RESP 11–20; TEMP 36.3–37.7; O2SAT 97–100; BMI 32.9
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
[2025-02-15] MEDS: Lactated Ringers 1,000 ML 125 ML IV (07:46)
[2025-02-15] MEDS: ceFAZolin 2 GM/50 ML BAG IVPB (08:29)
[2025-02-15] MEDS: Bupivacaine 0.25% Pres-Free 30 ML VIAL (10:00)
[2025-02-15] MEDS: Bupivacaine 0.5% Pres-Free W/EPI 30 ML VIAL (11:30)
--- NOTE | 2025-02-15 11:45 | UTER_PTH ---
PATIENT: Betina Rolle LOC: OBS U#:[id number] AGE/SX: 39/F ROOM: OBS.305 RE02/15/[address]: Treva Mcfadden MD : 1985 BED: A DIS: 02/16/2025 SPEC #: [id number] RECD: 02/15/25 13:38 STATUS: GEMA REQ #: [id number] JAYSON: 02/15/25 11:[address]: Treva Mcfadden DEPT: Surgical Specimen RECD BY: Elaina Hudson ENTERED: 02/15/25 13:39 SP TYPE: UTER OTHR DR: Norma Lowe Tissues: 1 - UTERUS W OR W/O OVARIES(NOT TUMOR/PROLAPSE) Procedures: GROSS AND MICRO LEVEL 5 Comments: [id number]
--- NOTE | 2025-02-15 13:01 | BRIEFOP_ITS ---
Date of service: 02/15/25 Time of Service: 13:02 Brief Operative Note Procedure/Pre & Post Op Diagnoses/Cook Supervisor: Operation Date: 02/15/25 08:25 Actual Procedures p Hysterectomy Vaginal Laparoscopic Assist and IUD removal(Not Applicable) - Treva Mcfadden MD Pre-Op Diagnosis: Abnormal uterine bleeding Post-Op Diagnosis: Abnormal uterine bleeding 100ml Specimen/Culture Specimen(s): 1. Uterus, cervix, left fallopian tube, and right fallopian tube (loose)
--- NOTE | 2025-02-15 13:41 | W.ANESPOSTOP ---
Postoperative Evaluation Date, Time and Location Date Performed: 02/15/25 Time Performed: 13:41 Patient Location: PACU Vital Signs Most Recent Imported Vital Signs: Most Recent Vital Signs Temp Pulse Resp BP Pulse Ox 36.9 C 63 11 L 123/82 99 02/15/25 13:35 02/15/25 13:35 02/15/25 13:35 02/15/25 13:35 02/15/25 13:35 Pain Score Most Recent Pain Score: Most Recent Pain Score Pain Level 1 02/15/25 13:38 Assessment Mental Status: Awake (Alert & Oriented to Patient Baseline) Airway and Respiratory Function: Patent airway with normal (patient baseline) respiratory exam Cardiovascular Function: Hemodynamically Stable Hydration Status: Adequately Hydrated Nausea & Vomiting: No Nausea or Vomiting Pain: Pain is tolerable per patient Peripheral Nerve Block: Patient did not receive a nerve block
[2025-02-15] MEDS: Phenazopyridine 200 MG TAB PO ×2 (14:17→20:04)
[2025-02-15] MEDS: Acetaminophen 325 MG TAB 650 MG PO ×2 (17:48→21:31)
[2025-02-15] MEDS: Ibuprofen 600 MG TAB PO ×2 (17:49→23:22)
[2025-02-16 02:55] VITALS: TEMP 37
[2025-02-16] MEDS: Acetaminophen 325 MG TAB 650 MG PO ×3 (02:55→13:56)
[2025-02-16 02:57] VITALS: TEMP 37
[2025-02-16] MEDS: oxyCODONE 5 MG TAB PO ×2 (02:57→08:41)
[2025-02-16 03:00] VITALS: RESP 18; TEMP 37
[2025-02-16 07:32] VITALS: BP 106/69; PULSE 72; RESP 18; TEMP 37
[2025-02-16] MEDS: Ibuprofen 600 MG TAB PO ×2 (07:43→13:56)
[2025-02-16] MEDS: Phenazopyridine 200 MG TAB PO (08:41)
[2025-02-16] MEDS: Docusate Sodium 100 MG CAP PO (08:41)
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
--- NOTE | 2025-02-16 08:49 | W.PM.PROGNOT ---
Date of Service Date of service: 02/15/25 Time of Service: 16:45 Assessment and Plan Assessment and plan (1) History of laparoscopic-assisted vaginal hysterectomy: Assessment and plan: POD#0 s/p LAVH for AUB with e/o endometriosis during surgery. Uncomplicated. Recovering well. Likely d/c home tomorrow. Subjective Subjective Interval history since last seen: Pt is feeling well. Pain well controlled on PO meds. Tolerating oral intake w/out nausea. Minimal bleeding. Has been out of bed to urinate without issues. Exam Const General: cooperative, healthy appearing and no acute distress HENMT Head: normocephalic and atraumatic Ears: hearing grossly normal bilaterally Resp Effort & Inspection: normal respiratory effort and able to speak in complete sentences GI Other: Incisions clean and dry. Neuro General: patient alert and patient awake Extrem Other: No edema or calf tenderness Psych Appearance: grossly normal Mental Status: mental status grossly normal Speech and Movement: speech and movement normal Affect: normal affect Attitude: cooperative Thought Process: normal Thought Content: normal Objective Last Vital Signs Temp 98.6 F 02/16/25 07:32 Pulse 72 02/16/25 07:32 Resp 18 02/16/25 07:32 BP 106/69 02/16/25 07:32 Pulse Ox 100 02/15/25 23:15 Time Spent with Patient Time Spent with Patient: <25 minutes Time was spent: preparing to see the patient(eg.review tests) and counseling the patient
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
[2025-02-16 12:00] VITALS: BP 108/76; PULSE 78; RESP 18; TEMP 36.7
== END 2025-02-16 14:15 | disposition home or self-care (01) | DRG 743 ==
LOC: OBS 13:59
PROVIDERS: Admitting Provider Obstetrics & Gynecology; PCP Family Medicine; Visit Provider Obstetrics & Gynecology
PROC: 0UT9FZZ Resection of Uterus, Via Natural or Artificial Opening With Percutaneous Endoscopic Assistance (ICD-10-PCS; CPT 58552; principal; 2025-02-15 08:15)
DX: N93.9 Abnormal uterine and vaginal bleeding, unspecified (principal); D25.1 Intramural leiomyoma of uterus; Z97.5 Presence of (intrauterine) contraceptive device; T80.89XA Other complications following infusion, transfusion and therapeutic injection, initial encounter; N80.319 Endometriosis of the anterior cul-de-sac, unspecified depth
CPT/HCPCS: 58552; 88307; G0378; J0131; J0665; J0690; J1100; J1885; J2250; J2274; J2405; J2704; J3010; J3475

== ENCOUNTER 2025-03-16 00:56 | Outpatient (CLI) | payer MEDICAID, SELFPAY ==
--- NOTE | 2025-03-16 07:23 | DI.CT_ITS ---
Exam(s) CT ABDOMEN PELVIS WO EXAM: CT ABDOMEN PELVIS WO CLINICAL HISTORY: ? umbilical hernia,ABD PAIN, H/O LAP VAG HYST. TECHNIQUE: Imaging Protocol: Axial computed tomography images with coronal and sagittal reformatted images were created and reviewed. COMPARISON: CT ABD PELVIS WITH CONTRAST from 04/10/[address] renal colic wo from 06/07/[address] ABDOMEN PELVIS WO from 07/31/2019 US US PELVIS TRANSVAGINAL from 09/13/2024 FINDINGS: ABDOMEN: Lung Bases: Normal where visualized. Liver: Normal density. There is a stable hypodensity in the inferior aspect of the right lobe of the liver. No suspicious hepatic lesions are seen on this noncontrast examination. Gallbladder and biliary tract: No radiodense calculus or biliary ductal dilation. Pancreas: Normal density, no abnormal calcifications or inflammatory process. Spleen: Normal. Kidneys: Normal size, contour and axis.There is a 2 mm nonobstructing stone in the lower pole of the left kidney. No masses seen. Adrenal glands: No mass is seen. Lymph nodes: Within normal limits. Abdominal Aorta: Abdominal portion non-dilated. PELVIS: Bladder:Symmetric distention, no gross wall thickening. Bowel: No obstruction or bowel wall thickening. There are surgical clips seen at the cecum likely reflecting prior appendectomy. Peritoneal cavity: No ascites, collection or mesenteric inflammatory response. No free air. Reproductive organs: There is a 2.5 cm right ovarian cyst. This is likely physiologic. Bones: Within normal limits. Soft Tissues: There is a small fat containing paraumbilical hernia. IMPRESSION: There is a small fat containing paraumbilical hernia. RADIATION DOSE DELIVERED: 764.44mGy.cm Total DLP DATA REPOSITORY: All CT scans at this facility are submitted to the National Radiology Data Registry (NRDR) Dose Index Registry (DIR) with the [employer] (A[employer]). RADIATION OPTIMIZATION: All CT scans at this facility use at least one of these dose optimization techniques: automated exposure control; mA and/or kV adjustment per patient size (includes targeted exams where dose is matched to clinical indication); or iterative reconstruction.
[2025-03-16] MEDS: Barium Sulfate 2% W/V-Berry Smoothie 450 ML BTL PO (11:02)
[2025-03-16] MEDS: Barium Sulfate 2% W/V-Creamy Vanilla Smoothie 450 ML BTL PO (11:02)
== END 2025-03-16 01:16 ==
LOC: DI 00:57
PROVIDERS: PCP Family Medicine; Visit Provider Obstetrics & Gynecology
DX: Z90.710 Acquired absence of both cervix and uterus (principal); K42.9 Umbilical hernia without obstruction or gangrene
CPT/HCPCS: 74176